=== PATIENT | male | born 1955 | race African-American/Black ===

== ENCOUNTER 2021-09-16 15:52 | Observation (INO) | payer MEDICARE, SELFPAY ==
[2021-09-16] VITALS (16 sets, daily range): BP systolic 135–163; BP diastolic 80–94; PULSE 71–80; RESP 13–21; TEMP 36.2–36.8; O2SAT 93–100; BMI 29.0
[2021-09-16 16:02] LABS: Glucose Point of Care 120 mg/dl (65-105)
--- NOTE | 2021-09-16 16:10 | ECG_ITS ---
Measurements Intervals [place] Rate: 71 P: 66 NC: 177 QRS: -72 QRSD: 174 T: -1 QT: 433 QTc: 474 Interpretive Statements SINUS RHYTHM RIGHT BUNDLE BRANCH BLOCK [120+ ms QRS DURATION, UPRIGHT V1, 40+ ms S IN I/aVL/V4/V5/V6] LEFT ANTERIOR FASCICULAR BLOCK [QRS AXIS <= -45, QR IN I, RS IN II] COMPARED TO ECG 07/28/2019 16:37:17 NO SIGNIFICANT CHANGES Electronically Signed On 09-16-2021 20:29:33 CDT by Heavenly Reardon M.D.
--- NOTE | 2021-09-16 16:58 | ED.RECABL ---
HPI - Recheck/Abnormal Lab/Rx General Chief Complaint: Recheck/Abnormal Lab/Rx Stated Complaint: hypoglycemia Time Seen by Provider: 09/16/21 16:04 Source: patient and EMS Mode of arrival: EMS Limitations: clinical condition History of Present Illness HPI narrative: This is a 66 year old male with history of right hemiparesis s/p CVA, Diabetes mellitus, and hypertension who presents from home for evaluation of low blood sugar. EMS reports patient was confused and he was found to have glucose of 29 . He was given oral glucose and D10 by EMS. Patient does not remember what happened. Patient states he was going to see his PCP today to get steroid injection in his back. He states he ate oatmeal for breakfast and chicken dinner for lunch. He is not aware of any changes his medications. He does not check his blood sugar routinely at home. He denies any complains other than his chronic back pain. He denies nausea, vomiting, abdominal pain, chest pain, cough or fever Related Data Home Medications Medication Instructions Recorded Confirmed aspirin 81 mg PO DAILY 09/16/21 09/16/21 atorvastatin 40 mg PO DAILY 09/16/21 09/16/21 carvedilol 25 mg PO BID 09/16/21 09/16/21 clopidogrel [Plavix] 75 mg PO DAILY 09/16/21 09/16/21 glimepiride 4 mg PO DAILY 09/16/21 09/16/21 hydralazine 100 mg PO BID 09/16/21 09/16/21 levetiracetam [Keppra] 1,000 mg PO BID 09/16/21 09/16/21 losartan 100 mg PO DAILY 09/16/21 09/16/21 magnesium oxide 250 mg PO DAILY 09/16/21 09/16/21 metformin 1,000 mg PO BID 09/16/21 09/16/21 tamsulosin 0.4 mg PO HS 09/16/21 09/16/21 Allergies Allergy/AdvReac Type Severity Reaction Status Date / Time No Known Allergies Allergy Verified 09/16/21 16:01 Review of Systems Review of Systems: All systems reviewed & are unremarkable except as noted in HPI and below PMFSH Past Medical History Medical History (Updated 09/16/21 @ 19:38 by Sarahy Burleson MD) CVA (cerebral vascular accident) Diabetes HTN (hypertension) Myocardial infarct Surgical History Surgical History History of heart surgery 3 stents placed after [place] Family History Family History (System 10/05/19 @ 08:30 by Jackie Rivera) Father Hypertension Malignant neoplasm of prostate, Onset Age: 82 Patient's father is Mother Hypertension Family history of elevated blood lipids Cerebrovascular accident, Onset Age: 45 Patient's mother is Social History Social History (System 10/05/19 @ 08:30 by Jackie Rivera) Smoking status: Unknown if ever smoked Alcohol intake: never Gender identity (if verbalized by the patient): Male Exam Const: General: no acute distress and alert Orientation/consciousness: patient oriented x3 HENMT: Head: normocephalic and atraumatic Face and sinus: face symmetric Eyes: Pupils: Equal, round and reactive pupils present EOM: EOMs intact bilaterally Resp: Effort & Inspection: normal respiratory effort and no retractions Cardio: Rate: regular rate Rhythm: regular rhythm Heart sounds: no murmurs GI: GI Palp: Yes Soft to palpation, No Tenderness to palpation present (GI), No Guarding due to palpation present (GI) and No Rigid due to palpation Auscultation: normal bowel sounds Neuro: General: patient oriented x3 and CN's II-XI intact bilaterally Other: right arm weakness Psych: Mental Status: mental status grossly normal Affect: normal affect Course Reevaluation(s) Reevaluation #1: Patient has not complaints. HE is eating. He will be obs for hypoglycemia. Dr. Harry accepts patient to IMU. Date: 09/16/21 Time: 19:37 Vital Signs Vital signs: Vital Signs Pulse Rate 78 09/16/21 15:55 Respiratory Rate 20 09/16/21 15:55 Blood Pressure 161/84 H 09/16/21 15:55 Pulse Oximetry 100 09/16/21 15:55 Pulse Rate 80 09/16/21 18:46 Respiratory Rate 21 H 09/16/21
[2021-09-16 17:06] LABS: Basophils Percent Auto 0.2 % (0.2-1.2); Eosinophils Absolute Auto 0.1 K/mm3 (0-0.3); Eosinophils Percent Auto 1.2 % (0-4.4); Hematocrit 28.9 % (42.0-52.0); Hemoglobin 9.5 g/dL (14.0-18.0); Immature Granulocyte Absolute 0.03 K/mm3 (0.00-0.031); Immature Granulocyte Percent A 0.3 % (0-0.5); Lymphocytes Percent Auto 14.8 % (18.3-44.2); Mean Corpuscular HGB Conc 32.9 g/dl (32-36); Mean Corpuscular Hemoglobin 27.1 pg (26-34); Mean Corpuscular Volume 82.6 fl (80-100); Mean Platelet Volume 8.9 fl (7.4-10.4); Monocytes Absolute Auto 0.5 K/mm3 (0.1-0.6); Monocytes Percent Auto 5.3 % (2.6-8.5); Neutrophils Absolute Auto 7.9 K/mm3 (1.3-6.7); Neutrophils Percent Auto 78.2 % (45.5-73.1); Platelet Count Result 239 k/mm3 (150-375); Red Cell Distribution Width 13.8 % (11.5-14.5); White Blood Count 10.2 K/mm3 (4.5-10.0)
[2021-09-16 17:10] LABS: Add Urine Microscopic? NO; Appearance Urine Clear (Clear); Bilirubin Urine Negative (Negative); Blood Urine Negative (Negative); Color Urine Yellow (Yellow); Glucose Urine UA Negative (Negative); Ketones Urine Negative (Negative); Leukocyte Esterase Ur Negative LEU/UL (Negative); Nitrate Urine Negative (Negative); Protein Urine Negative (Negative); Specific Grav Ur 1.014 (1.001-1.035); Urobilinogen Urine Negative mg/dL (<2.0)
[2021-09-16 17:18] LABS: Alanine Aminotransferase 18 U/L (4-50); Albumin Level 4.1 g/dL (3.5-5.1); Alkaline Phosphatase 54 U/L (38-126); Anion Gap 10 mmol/L (8-16); Aspartate Amino Transferase 25 U/L (17-59); Bilirubin,Total 0.4 mg/dL (0.2-1.3); Blood Urea Nitrogen 16 mg/dL (9-20); Carbon Dioxide 27 mmol/L (22-30); Chloride 102 mmol/L (98-107); Estimated CRCL calculation 55 ml/min; Estimated Glomerular Filt Rate > 60; Glucose 84 mg/dL (65-110); Potassium 3.9 mmol/L (3.4-5.0); Sodium 139 mmol/L (137-145)
[2021-09-16 18:08] LABS: Glucose Point of Care 54 mg/dl (65-105)
--- NOTE | 2021-09-16 18:13 | PC.NURSE ---
Dr Banerjee was informed that pt blood sugar was 54. stated to feed patient. Pt currently drinking OJ and eating crackers and granola bar.
--- NOTE | 2021-09-16 18:48 | PC.NURSE ---
pt blood sugar rechecked bs86 Patient encouraged to drink more OJ and snack.
--- NOTE | 2021-09-16 19:28 | PM.IMHP ---
H&P: HPI History of Present Illness Date/Time: 09/16/21 19:28 Chief Complaint: Altered mental status. Narrative: This is a 66-year-old male with past medical history significant for stroke, right-sided hemiparesis, hypertension, dyslipidemia, type 2 diabetes mellitus, benign prostatic hyperplasia. Patient was brought to the emergency room via EMS due to altered mental status. He was found to have a blood sugar of 29. Patient has been having back pain and was going to visit his primary care physician for steroid injection. Patient states that he has been eating all his meals. In denies any nausea, vomiting, diarrhea, abdominal pain, fevers, rigors, chills, cough ,sputum production, weight loss. Patient received while on the field D50 and in emergency room there were no other events. Patient is been admitted for further evaluation, management and treatment. Preliminary workup has been essentially nonrevealing. Review of Systems Review of Systems: Low blood sugar, low back pain. Constitutional: Constitutional: Denies chills, Denies fatigue, Denies fever(s), Denies lethargy, Denies malaise, Denies night sweats, Denies poor appetite, Denies weakness and Denies weight loss Eyes: Eyes: Denies change in vision ENT: Denies dysphagia, Denies vertigo, Denies dizziness, Denies nasal congestion, Denies nasal discharge, Denies nasal obstruction and Denies odynophagia Cardiovascular: Cardiovascular: Denies chest pain with activity, Denies leg ulcers, Denies leg edema, Denies lightheadedness, Denies radiating jaw, neck or arm pain, Denies palpitations and Denies dyspnea on exertion Respiratory: Respiratory: Denies change in phlegm color, Denies cough, Denies excessive phlegm production and Denies wheezing Gastrointestinal: Gastrointestinal: Denies GI cramping, Denies dyspepsia, Denies heartburn, Denies diarrhea, Denies nausea and Denies vomiting Genitourinary: Genitourinary: Denies dysuria and Denies flank pain Musculoskeletal: Musculoskeletal: Reports back pain Comments: Lower back pain. Integumentary/Breasts: Skin/Breast: Denies rash Neurologic: Denies vertigo, Denies syncope, Denies focal weakness, Denies Sensory deficit (Neuro) and Reports weakness (Right-sided hemiparesis.) Psychiatric: Psychiatric: Reports no additional psychiatric complaints and Reports as per HPI Endocrine: Endocrine: Denies cold intolerance, Denies heat intolerance, Denies polyphagia, Denies polydipsia, Denies polyuria, Denies palpitations and Reports other (Hypoglycemia) Hematologic/Lymphatic: Hematologic/Lymphatic: Reports no additional hematologic/lymphatic complaints and Reports as per HPI Allergic/Immunologic: Allergic/Immunologic: Reports no additional allergic/immunologic complaints and Reports as per HPI PMFSH Past Medical History Medical History (Updated 09/17/21 @ 01:21 by Abdon Harry MD) CVA (cerebral vascular accident) Diabetes HTN (hypertension) Myocardial infarct Surgical History Surgical History History of heart surgery 3 stents placed after [place] Family History Family History Father Hypertension Malignant neoplasm of prostate, Onset Age: 82 Patient's father is Mother Hypertension Family history of elevated blood lipids Cerebrovascular accident, Onset Age: 45 Patient's mother is Social History Social History (System 10/05/19 @ 08:30 by Jackie Rivera) Smoking status: Never smoker Second hand tobacco smoke exposure: No Alcohol intake: never Substance use: never Substance use type: does not use Gender identity (if verbalized by the patient): Male Spiritual care concerns: No Meds Home Medications and Allergies Home Medications Medication Instructions Recorded Confirmed Type aspirin 81 mg PO DAILY 09/16/21 09/16/21 History atorvastatin 40 mg P
--- NOTE | 2021-09-16 19:30 | PC.NURSE ---
Handoff received from Phyllis HATHAWAY. Patient lying comfortably in ED stretcher. Calm and cooperative. AAOx4. Equal and unlabored resp. Skin is warm and dry. SR on property assessment monitor. 18g IV L AC in place secured and patent. No complaints at this time. Vitals WNL. Updated on Tx plan. Pending bed assignment.
[2021-09-16 19:55] LABS: Glucose Point of Care 125 mg/dl (65-105)
[2021-09-16 19:55] LABS: Glucose Point of Care 84 mg/dl (65-105)
--- NOTE | 2021-09-16 21:42 | ADMGEN ---
This patient, Arnulfo Rod, was admitted to IMU Room 232-01 at 2105 on 09/16/21. Patient/family oriented to hospital policies and general routines including ID bracelet, bed and alarms, visiting hours, pain management, procedures, bathroom and other care routines, personal items, smoking policy, room service/diet, and visiting hours. Information on how to activate the Rapid Response Team has been discussed. Patient/Family are encouraged to report perceived risks to care and to ask questions if they do not understand what they are told or what they should do.
[2021-09-16 21:43] LABS: Glucose Point of Care 122 mg/dl (65-105)
[2021-09-17] VITALS (9 sets, daily range): BP systolic 124–150; BP diastolic 79–87; PULSE 60–75; RESP 15–16; TEMP 36.6–36.9; O2SAT 97–100
[2021-09-17 00:06] LABS: Glucose Point of Care 83 mg/dl (65-105)
[2021-09-17 01:56] LABS: Glucose Point of Care 110 mg/dl (65-105)
[2021-09-17 04:05] LABS: Glucose Point of Care 69 mg/dl (65-105)
[2021-09-17] MEDS: GLUCOSE ORAL GEL 15 GM OF GLUCSE IN 37.5 GM TUBE PO (04:08)
[2021-09-17] MEDS: DEXTROSE 50% 25 GM/50 ML SYRINGE IV PUSH ×2 (04:19→04:20)
[2021-09-17] MEDS: HYDROcodone/acetaminophen (*CRX) 5-325 MG TABLET 1 TAB BY MOUTH ×2 (04:45→10:31)
[2021-09-17 04:46] LABS: Glucose Point of Care 227 mg/dl (65-105)
[2021-09-17 06:05] LABS: Glucose Point of Care 144 mg/dl (65-105)
[2021-09-17] MEDS: DEXTROSE 10% 1,000 ML 65 ML IV CONT (06:33)
[2021-09-17] MEDS: ASPIRIN 81 MG ENTERIC TABLET PO (08:53)
[2021-09-17] MEDS: CLOPIDOGREL BISULFATE 75 MG TABLET PO (08:53)
[2021-09-17] MEDS: hydrALAZINE HCL 50 MG TABLET 100 MG PO (08:53)
[2021-09-17] MEDS: levETIRAcetam 500 MG TABLET 1000 MG PO (08:53)
[2021-09-17] MEDS: ATORVASTATIN 40 MG TABLET PO (08:53)
[2021-09-17] MEDS: MAGNESIUM OXIDE 200 MG TABLET PO (08:53)
[2021-09-17] MEDS: LOSARTAN POTASSIUM 100 MG TABLET PO (08:53)
[2021-09-17] MEDS: carvediloL 25 MG TABLET PO (08:54)
[2021-09-17 09:49] LABS: Glucose Point of Care 110 mg/dl (65-105)
[2021-09-17 10:15] LABS: Glucose Point of Care 191 mg/dl (65-105)
[2021-09-17 10:21] LABS: Hemoglobin A1C 5.1 % (<5.7)
[2021-09-17 12:35] LABS: Glucose Point of Care 138 mg/dl (65-105)
--- NOTE | 2021-09-17 13:42 | PM.IMPN ---
Subjective Date/time seen: 09/17/21 13:42 Patient seen and examined. He is doing well we will stop the D10 drip. Hemoglobin A1c 5.1, stopping his metformin and glipizide. Patient will likely go home today if blood sugar stays stable. Review of Systems Review of Systems: All systems reviewed & are unremarkable except as noted in HPI and below Objective Data Vital Signs Vital Signs: Vital Signs - 24 hr 09/16/21 15:55 09/16/21 16:13 09/16/21 16:15 Temperature Pulse Rate 78 78 73 Respiratory Rate 20 20 17 Blood Pressure 161/84 H 161/84 H Pulse Oximetry 100 100 99 09/16/21 17:11 09/16/21 17:17 09/16/21 17:31 Temperature Pulse Rate 74 72 75 Respiratory Rate 17 21 H 15 Blood Pressure 163/94 H 142/86 H 135/91 H Pulse Oximetry 96 93 09/16/21 17:47 09/16/21 18:32 09/16/21 18:46 Temperature Pulse Rate 71 80 80 Respiratory Rate 13 19 21 H Blood Pressure 152/85 H 152/85 H 145/93 H Pulse Oximetry 95 09/16/21 19:16 09/16/21 19:32 09/16/21 20:51 Temperature 36.8 C Pulse Rate 78 80 75 Respiratory Rate 19 21 H 18 Blood Pressure 151/85 H 142/91 H 145/86 H Pulse Oximetry 99 100 98 09/16/21 21:20 09/16/21 21:40 09/16/21 22:00 Temperature 36.2 C L 36.2 C L Pulse Rate 76 76 78 Respiratory Rate 16 16 Blood Pressure 151/80 H 151/80 H Pulse Oximetry 100 100 09/16/21 23:58 09/17/21 00:00 09/17/21 02:00 Temperature 36.4 C Pulse Rate 74 75 72 Respiratory Rate 16 Blood Pressure 143/84 H Pulse Oximetry 100 09/17/21 03:54 09/17/21 04:00 09/17/21 06:00 Temperature 36.6 C Pulse Rate 64 67 73 Respiratory Rate 15 Blood Pressure 150/87 H Pulse Oximetry 97 09/17/21 08:00 09/17/21 12:00 Temperature 36.8 C 36.9 C Pulse Rate 65 68 Respiratory Rate 16 16 Blood Pressure 137/80 124/79 Pulse Oximetry 99 100 Intake/Output Intake/Output: Intake & Output 09/14/21 09/15/21 09/16/21 09/17/21 23:59 23:59 23:59 23:59 Intake Total 770 Output Total 700 Balance 70 Meds/Results Medications: Active Medications Generic Name Dose Route Start Last Admin Trade Name Freq PRN Reason Stop Dose Admin Hydrocodone Bitart/Acetaminophen 1 tab 09/17/21 10:26 09/17/21 10:31 Hydrocodone/Acetaminophen (*Crx) 5-325 Mg Tablet BY MOUTH 1 tab Q6H PRN Administration Back Pain Aspirin 81 mg 09/17/21 09:00 09/17/21 08:53 Aspirin 81 Mg Enteric Tablet PO 81 mg QAM TALI Administration Atorvastatin Calcium 40 mg 09/17/21 09:00 09/17/21 08:53 Atorvastatin 40 Mg Tablet PO 40 mg DAILY TALI Administration Carvedilol 25 mg 09/17/21 09:00 09/17/21 08:54 Carvedilol 25 Mg Tablet PO 25 mg Q12HR TALI Administration Clopidogrel Bisulfate 75 mg 09/17/21 09:00 09/17/21 08:53 Clopidogrel Bisulfate 75 Mg Tablet PO 75 mg DAILY TALI Administration Dextrose 12.5 gm 09/16/21 19:31 09/17/21 04:20 Dextrose 50% 25 Gm/50 Ml Syringe IV PUSH 12.5 gm PRN PRN Administration Hypoglycemia Protocol Glucagon 1 mg 09/16/21 19:31 Glucagon For Inj 1 Mg Vial IM PRN PRN Hypoglycemia Protocol Glucose 15 gm 09/16/21 19:31 09/17/21 04:08 Glucose Oral Gel 15 Gm Of Glucse In 37.5 Gm Tube PO 15 gm PRN PRN Administration Hypoglycemia Protocol Hydralazine HCl 100 mg 09/17/21 09:00 09/17/21 08:53 Hydralazine Hcl 50 Mg Tablet PO 100 mg BID TALI Administration Dextrose 1,000 mls @ 100 mls/hr 09/16/21 19:31 Dextrose 5% 1,000 Ml IVPB PRN PRN Hypoglycemia Protocol Levetiracetam 1,000 mg 09/17/21 09:00 09/17/21 08:53 Levetiracetam 500 Mg Tablet PO 1,000 mg BID TALI Administration Losartan Potassium 100 mg 09/17/21 09:00 09/17/21 08:53 Losartan Potassium 100 Mg Tablet PO 100 mg DAILY TALI Administration Magnesium Oxide 200 mg 09/17/21 09:00 09/17/21 08:53 Magnesium Oxide 200 Mg Tablet PO 10/17/21 08:59 200 mg DAILY TALI Administration Ondansetron
--- NOTE | 2021-09-17 13:45 | PM.DS ---
DS: Admitting Diagnosis Discharge Date 09/17/2021 Admitting Diagnosis Altered mental status, hypoglycemia DS: Discharge Diagnosis Discharge Diagnosis (1) Altered mental status: Code(s): R41.82 - Altered mental status, unspecified Status: Acute Assessment and Plan: Secondary to hyperglycemia (2) Hypoglycemia: Code(s): E16.2 - Hypoglycemia, unspecified Status: Acute Assessment and Plan: A1c 5.1 while on glimepiride and metformin. With weight loss he may no longer need diabetes medications. Blood sugars improved by discharge. DS: Summary Hospital Course Reason for hospitalization: Hypoglycemia and altered mental status Hospital Course: Patient is a 66-year-old male past medical history of stroke with right hemiparesis, hypertension, dyslipidemia, type 2 diabetes, BPH. He was brought in by EMS for altered mental status and was found to have hypoglycemia blood sugar 29. He was temporarily on D10 drip. Patient diabetes regimen includes metformin and glimepiride. Consulted clinical staff educator. Patient does not check his blood sugars at home. Hemoglobin A1c 5.1. Patient states he has been trying to lose weight and has lost 30 lb over last year. With his weight loss, his diabetes regimen appears to be too much. Holding off on glucometer, as patient is not on any diabetes medications. At this time I will stop his home medications and he will follow-up with PCP, patient requesting new physician, will give referral. At time of discharge patient's vitals are stable, labs stable, patient is for discharge home. Patient understands and agrees with plan. Status at Discharge Cognitive/behavioral status at discharge: At baseline Functional status at discharge: independent ambulation Overall status at discharge: patient is back to baseline Time Spent with Patient Time attestation: Total time spent providing and/or coordinating discharge services:35 Time spent: Greater than 30 minutes DS: Data Data Completed and Pending Labs on day of discharge: Labs from last 24 hours 09/17/21 09/17/21 09/17/21 12:19 10:10 08:22 WBC RBC Hgb Hct MCV MCH MCHC RDW Plt Count MPV Immature Gran % (Auto) Neut % (Auto) Lymph % (Auto) Granite % (Auto) Eos % (Auto) Baso % (Auto) Lymph # (Auto) Granite # (Auto) Eos # (Auto) Baso # (Auto) Abs Immat Gran (auto) Absolute Neuts (auto) Absolute Nucleated RBC Nucleated RBC % Sodium Potassium Chloride Carbon Dioxide Anion Gap BUN Creatinine Estim Creat Clear Calc Estimated GFR Glucose POC Capillary Glucose 138 H 191 H 110 H Hemoglobin A1c Calcium Total Bilirubin AST ALT Alkaline Phosphatase Total Protein Albumin Urine Color Urine Appearance Urine pH Ur Specific [place] Urine Protein Urine Glucose (UA) Urine Ketones Ur Blood (Man) Urine Nitrate Urine Bilirubin Urine Urobilinogen Leukocyte Esterase Rfl 09/17/21 09/17/21 09/17/21 06:03 04:42 03:58 WBC RBC Hgb Hct MCV MCH MCHC RDW Plt Count MPV Immature Gran % (Auto) Neut % (Auto) Lymph % (Auto) Granite % (Auto) Eos % (Auto) Baso % (Auto) Lymph # (Auto) Granite # (Auto) Eos # (Auto) Baso # (Auto) Abs Immat Gran (auto) Absolute Neuts (auto) Absolute Nucleated RBC Nucleated RBC % Sodium Potassium Chloride Carbon Dioxide Anion Gap BUN Creatinine Estim Creat Clear Calc Estimated GFR Glucose POC Capillary Glucose 144 H 227 H 69 Hemoglobin A1c Calcium Total Bilirubin AST ALT Alkaline Phosphatase Total Protein Albumin Urine Color Urine Appearance Urine pH Ur Specific [place] Urine Protein Urine Glucose (UA) Urine Ketones Ur Blood (Man) Urine Nitrate Urine Bilirubin Uri
--- NOTE | 2021-09-18 09:59 | PCCDE ---
Consult received 09/17 however pt was discharged 09/17 before consult was completed. Pt was admitted with hypoglycemia. Pt was taking 4mg Glimepiride and 1gm Metformin BID. A1c was 5.1%. He has intentionally lost 30# this year. Meds were discontinued and pt was discharged 09/17. Called pt today; he is not testing BG and sts he does not have a meter. He wants the gluco ; pt meant continuous glucose monitor. Advised that medicare only covers CGM if taking insulin TID. He sts he will be calling PCP today to set up appt; advised he could ask them for rx for testing supplies. Offered to stop by office today for meter and teaching. pt sts manager of case management is there and he will call back.
== END 2021-09-17 16:05 | disposition home or self-care (01) ==
LOC: ANHED 19:38 → ANHIMU 20:36
PROVIDERS: Admitting Provider Internal Medicine; Emergency Provider General Practice; Visit Provider Student in an Organized Health Care Education/Training Program
DX: E11.649 Type 2 diabetes mellitus with hypoglycemia without coma (principal); R41.82 Altered mental status, unspecified; I69.351 Hemiplegia and hemiparesis following cerebral infarction affecting right dominant side; I10 Essential (primary) hypertension; I25.2 Old myocardial infarction; G89.29 Other chronic pain; M54.9 Dorsalgia, unspecified; E78.5 Hyperlipidemia, unspecified; N40.0 Benign prostatic hyperplasia without lower urinary tract symptoms; Z95.5 Presence of coronary angioplasty implant and graft; Z79.84 Long term (current) use of oral hypoglycemic drugs
CPT/HCPCS: 36415; 80053; 81003; 82948; 83036; 85025; 93005; 96365; 96366; 96376; 99285; A9270; G0378

== ENCOUNTER 2022-11-04 01:13 | Emergency (ER) | payer MEDICARE, SELFPAY ==
--- NOTE | ~2022-11-04 | XR_ITS ---
Portable chest x-ray Comparison: 01/18/2009 Clinical History: Chest pain Findings: Lungs are clear, without focal consolidation or pleural effusion. Cardiomediastinal silho uette is stable. Bones and soft tissues are unremarkable. Impression: Normal chest. Reviewed, dictated and finalized at location . Impression: Normal chest.
[2022-11-04 01:14] VITALS: BP 161/90; PULSE 75; RESP 18; TEMP 36.8; O2SAT 100
--- NOTE | 2022-11-04 01:19 | ECG_ITS ---
Measurements Intervals [place] Rate: 80 P: 69 MN: 189 QRS: -72 QRSD: 164 T: 30 QT: 418 QTc: 483 Interpretive Statements SINUS RHYTHM RIGHT BUNDLE BRANCH BLOCK LEFT ANTERIOR FASCICULAR BLOCK CONSIDER LATERAL INFARCT, AGE INDETERMINATE BASELINE ARTIFACT- I, II, AVR ABNORMAL ECG COMPARED TO ECG 09/16/2021 17:08:44 MYOCARDIAL INFARCT FINDING NOW PRESENT Electronically Signed On 11-04-2022 6:32:58 CDT by Carmelo Hawkins D.O.
[2022-11-04 01:54] LABS: Basophils Percent Auto 0.3 % (0.2-1.2); Eosinophils Absolute Auto 0.1 K/mm3 (0-0.3); Eosinophils Percent Auto 1.2 % (0-4.4); Hematocrit 33.6 % (42.0-52.0); Hemoglobin 11.4 g/dL (14.0-18.0); Immature Granulocyte Absolute 0.01 K/mm3 (0.00-0.031); Immature Granulocyte Percent A 0.1 % (0-0.5); Lymphocytes Absolute Auto 2.04 K/mm3 (0.9-3.2); Lymphocytes Percent Auto 26.1 % (18.3-44.2); Mean Corpuscular HGB Conc 33.9 g/dl (32-36); Mean Corpuscular Volume 82.6 fl (80-100); Mean Platelet Volume 9.1 fl (7.4-10.4); Monocytes Absolute Auto 0.4 K/mm3 (0.1-0.6); Monocytes Percent Auto 4.5 % (2.6-8.5); Neutrophils Absolute Auto 5.3 K/mm3 (1.3-6.7); Neutrophils Percent Auto 67.8 % (45.5-73.1); Platelet Count Result 224 k/mm3 (150-375); Red Blood Count 4.07 M/mm3 (4.6-6.20); Red Cell Distribution Width 12.2 % (11.5-14.5); White Blood Count 7.8 K/mm3 (4.5-10.0)
[2022-11-04 02:02] LABS: Alanine Aminotransferase 55 U/L (6-50); Albumin Level 4.1 g/dL (3.5-5.1); Alkaline Phosphatase 76 U/L (38-126); Anion Gap 6 mmol/L (8-16); Aspartate Amino Transferase 39 U/L (17-59); Bilirubin,Total 0.8 mg/dL (0.2-1.3); Blood Urea Nitrogen 12 mg/dL (9-20); Calcium 8.8 mg/dL (8.4-10.2); Carbon Dioxide 28 mmol/L (22-30); Chloride 104 mmol/L (98-107); Estimated CRCL calculation 59 ml/min; Estimated Glomerular Filt Rate > 60; Glucose 112 mg/dL (65-110); Lipase 127 U/L (23-300); Potassium 3.6 mmol/L (3.4-5.0); Sodium 138 mmol/L (137-145)
[2022-11-04 02:06] LABS: INR 1.2; Partial Thromboplastin Time 30.4 SECONDS (22.3-36.8); Prothrombin Time 15.9 Seconds (11.1-14.7)
[2022-11-04 02:13] LABS: Troponin I 0.021 ng/mL (0.000-0.034)
[2022-11-04 02:47] VITALS: BP 159/92; PULSE 70; RESP 17; O2SAT 100
--- NOTE | 2022-11-04 03:08 | ED.GENADULT ---
HPI - General Adult General Chief complaint: Chest Pain Stated complaint: chest pain Time Seen by Provider: 11/04/22 01:50 History of Present Illness HPI narrative: This is a 67-year-old male with history of strokes and MIs presenting ED with chest pain. Patient got to an argument with his . He then got mad said that he felt some sort of pain in center of his chest. He is unable to describe it well. It is not radiating, medium in intensity and resolved once he came to the hospital. He says this is not feel like when he has had heart attack in the past. There are no exacerbating or alleviating factors. It is associated with emotional exertion. There is no vomiting diaphoresis fever chills or cough. No lower extremity swelling. Patient states his visitor services assistant is Dr. Hawkins. Related Data Home Medications Medication Instructions Recorded Confirmed aspirin 81 mg tablet 81 mg PO DAILY 09/16/21 09/16/21 atorvastatin 40 mg tablet 40 mg PO DAILY 09/16/21 11/04/22 carvedilol 25 mg tablet 25 mg PO BID 09/16/21 11/04/22 clopidogrel 75 mg tablet (Plavix) 75 mg PO DAILY 09/16/21 11/04/22 hydralazine 100 mg tablet 100 mg PO BID 09/16/21 11/04/22 levetiracetam 1,000 mg tablet 1,000 mg PO BID 09/16/21 11/04/22 (Keppra) losartan 100 mg tablet 100 mg PO DAILY 09/16/21 09/16/21 magnesium oxide 250 mg PO DAILY 09/16/21 09/16/21 tamsulosin 0.4 mg capsule 0.4 mg PO HS 09/16/21 11/04/22 hydralazine 100 mg tablet 100 mg PO BID 11/04/22 11/04/22 Allergies Allergy/AdvReac Type Severity Reaction Status Date / Time No Known Allergies Allergy Verified 09/16/21 16:01 [facility] Past Medical History Medical History CVA (cerebral vascular accident) Diabetes HTN (hypertension) Myocardial infarct Surgical History Surgical History History of heart surgery 3 stents placed after [place] Family History Family History Father Hypertension Malignant neoplasm of prostate, Onset Age: 82 Patient's father is Mother Hypertension Family history of elevated blood lipids Cerebrovascular accident, Onset Age: 45 Patient's mother is Social History Social History Smoking status: Never smoker Second hand tobacco smoke exposure: No Alcohol intake: never Substance use: never Substance use type: does not use Gender identity (if verbalized by the patient): Male Spiritual care concerns: No Exam Narrative: APPEARANCE: No apparent distress. Head: atraumatic. EYES: EOMI, NOSE: Atraumatic NECK: Trachea midline RESPIRATORY: No increased rate of breathing, clear to auscultation CARDIOVASCULAR: RRR, no peripheral edema ABDOMINAL: Non-distended soft nontender no guarding or rebound MUSCULOSKELETAl: No obvious deformities NEURO: Alert. Right hemiplegia SKIN:: Warm, dry. Normal color PSYCHIATRIC: Normal affect Course Vital Signs Vital signs: Vital Signs Temperature 98.3 F 11/04/22 01:14 Pulse Rate 75 11/04/22 01:14 Respiratory Rate 18 11/04/22 01:14 Blood Pressure 161/90 H 11/04/22 01:14 Pulse Oximetry 100 11/04/22 01:14 Oxygen Delivery Room Air 11/04/22 01:14 Temperature 98.3 F 11/04/22 01:14 Pulse Rate 71 11/04/22 05:18 Respiratory Rate 15 11/04/22 05:18 Blood Pressure 140/70 11/04/22 05:18 Pulse Oximetry 100 11/04/22 05:18 Oxygen Delivery Room Air 11/04/22 01:14 Medical Decision Making [facility] Narrative Medical decision making narrative: -Presentation: 67-year-old male history of [place] presenting with chest pain after an argument with his . -DDX includes but is not limited to: ACS, emotional response, chest wall pain -Co-morbidities complicating care: hypertension diabetes heart disease CVA -Social determina
--- NOTE | 2022-11-04 03:26 | ECG_ITS ---
Measurements Intervals [place] Rate: 75 P: -1 OK: 192 QRS: 145 QRSD: 170 T: 29 QT: 442 QTc: 494 Interpretive Statements SINUS RHYTHM RIGHT AXIS DEVIATION RIGHT BUNDLE BRANCH BLOCK LATERAL INFARCT, AGE INDETERMINATE CONSIDER HIGH LATERAL INFARCT, AGE INDETERMINATE BASELINE ARTIFACT- I, II, AVR ABNORMAL ECG COMPARED TO ECG 11/04/2022 01:24:58 NO SIGNIFICANT CHANGES Electronically Signed On 11-05-2022 11:10:48 CDT by Carmelo Hawkins D.O.
[2022-11-04 04:05] VITALS: BP 169/93; PULSE 72; RESP 13; O2SAT 98
[2022-11-04 04:47] LABS: Troponin I 0.021 ng/mL (0.000-0.034)
[2022-11-04 05:18] VITALS: BP 140/70; PULSE 71; RESP 15; O2SAT 100
== END 2022-11-04 06:00 | disposition home or self-care (01) ==
PROVIDERS: Emergency Provider Emergency Medicine
DX: R07.9 Chest pain, unspecified (principal); I25.2 Old myocardial infarction; E11.9 Type 2 diabetes mellitus without complications; I10 Essential (primary) hypertension; Z95.5 Presence of coronary angioplasty implant and graft; Z86.73 Personal history of transient ischemic attack (TIA), and cerebral infarction without residual deficits; Z79.82 Long term (current) use of aspirin; I45.2 Bifascicular block; R94.31 Abnormal electrocardiogram [ECG] [EKG]; Z79.02 Long term (current) use of antithrombotics/antiplatelets
CPT/HCPCS: 36415; 71045; 80053; 83690; 84484; 85025; 85610; 85730; 93005; 99284

== ENCOUNTER 2024-12-03 09:18 | Outpatient (CLI) | payer MEDICARE, MEDICAID, SELFPAY ==
--- NOTE | ~2024-12-03 | XR_ITS ---
XR hip LT 2V w AP pelvis 12/03/2024 10:17 Indication: Hip pain Procedure: AP pelvis and 2 views right hip Comparison: No prior studies for comparison. 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 No fracture, subluxation or disloc ation. Pelvic rings intact. Impression: 1: Mild symmetric osteoarthritis of the hips. Reviewed, dictated and finalized at location A. Impression: 1: Mild symmetric osteoarthritis of the hips.
--- NOTE | ~2024-12-03 | CT_ITS ---
CT of the Abdomen and Pelvis: Indication: Abdominal pain Technique: 2.5 mm axial scans were obtained through the abdomen and pelvis following intravenous adm inistration of 100 cc of Omnipaque 350. Dose reduction technique was used on this scan by utilizing a utomated exposure control and iterative reconstruction technique. The dose-length product (DLP) was 1 060.54 mGy-cm. Findings: Scans through the lung bases are unremarkable. Several scattered hepatic cysts are present. The spleen, pancreas, gallbladder, left adrenal gland an d kidneys are within normal limits. 1.1 cm right adrenal nodule is indeterminate. There are atheroscl erotic calcifications of the aorta. No lymphadenopathy. No bowel obstruction or bowel wall thickening. There is no evidence to suggest acute appendicitis. Images through the pelvis were performed. Urinary bladder unremarkable. Prostate gland is markedly en larged and indents to the bladder base. No ascites. Impression: No acute abnormality. Indeterminate 1.1 cm nodule. Follow-up MR should be considered to assess for adenoma. Markedly enlarged prostate gland. Reviewed, dictated and finalized at [facility]. Impression: No acute abnormality. Indeterminate 1.1 cm nodule. Follow-up MR should be considered to assess for ad enoma. Markedly enlarged prostate gland.
--- OUTSIDE RECORDS SUMMARY | 2024-12-03 09:42 | XMS_ITS | Encounter Summary ---
Author Organization [facility] Address [address] [place] [address] Care Team Providers Care End Maker Name Role Phone Nghia Ag MD Primary Care Provider [phone] Encounter Details Date Type Department Care Team (Latest Contact Info) Description 06/01/2021 2:52 PM [facility] Encounter [place] [id number] [address] Batool Zhang MD [address] [place] [id number] [facility] Social History Tobacco Use Types Packs/Day Years Used Date Smoking Tobacco: Never Assessed PHQ-2 Answer Date Recorded PHQ2 TOTAL SCORE 0 05/29/2021 Sex and Gender Information Value Date Recorded Sex Assigned at Not on file Legal Sex Male 12:46 PM [facility] Gender Identity Not on file Sexual Orientation [...] documented in this encounter Plan of Treatment Not on file documented as of this encounter Visit Diagnoses Not on filedocumented in this encounter Care Teams End Maker Relationship Specialty Start Date End Date Nghia Ag MD [address] [place] [address] PCP - General Internal Medicine 05/27/21 documented as of this encounter
--- OUTSIDE RECORDS SUMMARY | 2024-12-03 09:42 | XMS_ITS | Clinical Summary ---
Author Organization [facility] Address [address] [place] [address] Care Team Providers Care Baggage Security Checker Name Role Phone Nghia Ag MD Primary Care Provider [phone] Source Comments [facility],non-owned Affiliates and Associated Physician Practices is amultiple site organization consisting of ambulatory clinics and hospital sitesin [place], [place], [place] and [place]. This disclosure is being madepursuant to the Care Everywhere program and may not contain all information available regarding this patient. Last updated 18.[facility] Allergies No known active allergies Medications * Be aware that medications may not be up to date on this document. Alwaysverify current medications with the patient. glimepiride (AMARYL) 4 MG tablet Take 4 mg by mouth daily with breakfast Active losartan (COZAAR) 100 MG tablet Take 100 mg by mouth once daily Active metFORMIN (GLUCOPHAGE) 1000 MG tablet Take 1,000 mg by mouth 2 times daily with morning and evening meal Active tamsulosin (FLOMAX) 0.4 MG capsule Take 0.4 mg by mouth once daily At the same time every day after a meal. Active atorvastatin (LIPITOR) 40 MG tablet Take 40 mg by mouth at bedtime Active acetaminophen (TYLENOL) 325 MG tablet Take 2 (two) tablets by mouth every 4 hours as needed Maximum allowable Acetaminophen amount = 4 Grams (4000 mg) / 24 hours. 1 Active aspirin (ASPIRIN) 325 MG tablet Take 1 (one) tablet by mouth once daily 1 Active clopidogrel (PLAVIX) 75 MG tablet Take 1 (one) tablet by mouth once daily 1 Active hydrALAZINE (APRESOLINE) 100 MG tablet Take 1 (one) tablet by mouth 3 times daily 1 Active Active Problems Problem Noted Date Diagnosed Date Cerebrovascular accident (CVA) 05/27/2021 Family History Medical History Relation Name Comments Cancer - Prostate Father CVA Mother Relation Name Status Comments Father Mother Social History Tobacco Use Types Packs/Day Years Used Date Smoking Tobacco: Former Smokeless Tobacco: Never Tobacco Cessation:Counseling Given: Yes Alcohol Use Standard Drinks/Week Comments Not Currently 0 (1 standard drink = 0.6 oz pur e alcohol) PHQ-2 Answer Date Recorded PHQ2 TOTAL SCORE 0 05/29/2021 Sex and Gender Information Value Date Recorded Sex Assigned at Not on file Legal Sex Male 12: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 Gender Identity Not on file Sexual Orientation Not on file Last Filed Vital Signs Vital Sign Reading Time Taken Comments Blood Pressure 129/72 06/01/2021 1:02 PM ELECTRIC POWER MACHINE OPERATOR Pulse 77 06/01/2021 1:02 PM ELECTRIC POWER MACHINE OPERATOR Temperature 36.5 C (97.7 F) 06/01/2021 11:08 AM ELECTRIC POWER MACHINE OPERATOR Respiratory Rate 19 06/01/2021 1:02 PM ELECTRIC POWER MACHINE OPERATOR Oxygen Saturation 96% 06/01/2021 11:08 AM ELECTRIC POWER MACHINE OPERATOR Inhaled Oxygen Concentration - - Weight 99.8 kg (220 lb) 05/29/2021 5:01 AM ELECTRIC POWER MACHINE OPERATOR Height 175.3 cm (5' 9) 05/28/2021 10:37 AM ELECTRIC POWER MACHINE OPERATOR Body Mass Index 32.49 05/28/2021 10:37 AM ELECTRIC POWER MACHINE OPERATOR Plan of Treatment Health Maintenance Due Date Last Done Comments COLOGUARD (AGES 45-75) - COLON CA SCREENING 1956 COLON MONITORING 1956 COLONOSCOPY - COLON CA SCREENING 1956 CT COLONOGRAPHY - COLON CA SCREENING 1956 Colorectal Cancer Screening 1956 FIT - COLON CA SCREENING 1956 FLEX SIG - COLON CA SCREENING 1956 HEPATITIS C SCREENING 04/05/1974 DTAP/TDAP/TD VACCINES (1 - Tdap) 1975 PNEUMOCOCCAL VACCINE 50+ (1 of 1 - PCV) 2006 ZOSTER VACCINE (1 of 2) 2006 AAA SCREENING 2021 COVID-19 VACCINE (3 - season) 2024 12/04/2020, 11/13/2020 SCREENING FOR DIABETES 06/18/2024 , 06/13/2021, 06/11/2021, Additional history exists DEPRESSION SCREENING 07/04/2024 INFLUENZA VACCINE (Season Ended) 2025 06/10/2020 Respiratory Syncytial Virus (RSV) Vaccine Pt: or over 60 yrs (1 - 1-dose 75+ series) 2031 HEPATITIS B VACCINE Aged Out No longe r eligible based on patient's age to complete this topic HIB VACCINE Aged Out No longer eligi ble based on patient's age to complete this topic HPV VACCINE Aged Out No longer eligi ble based on patient's age to complete this topic MENINGOCOCCAL (Group B) VACCINE SHARED DECISION-MAKING Aged Out No longer eligible based on patient's age to complete this topic MENINGOCOCCAL GROUPS A/C/Y/W VACCINE Aged Out No longer eligible based on patient's age to complete this topic Procedures Procedure Name Priority Date/Time Associated Diagnosis Comments COMPREHENSIVE METABOLIC PANEL Routine 06/18/2021 6:00 AM ELECTRIC POWER MACHINE OPERATOR from Last 3 Months or Most Recently Relevant to Health Maintenance Results * COMPREHENSIVE METABOLIC PANEL (06/18/2021 6:00 AM ELECTRIC POWER MACHINE OPERATOR) [facility] Glucose 98 70 - 105 mg/dL 06/18/2021 6:58 AM ELECTRIC POWER MACHINE OPERATOR [facility] Sodium 139 136 - 145 mmol/L 06/18/2021 6:58 AM ELECTRIC POWER MACHINE OPERATOR [facility] Potassium 4.4 3.5 - 5.1 mmol/L 06/18/2021 6:58 AM ELECTRIC POWER MACHINE OPERATOR [facility] Chloride 105 98 - 107 mmol/L 06/18/2021 6:58 AM ELECTRIC POWER MACHINE OPERATOR [facility] CO2 24 23 - 31 mmol/L 06/18/2021 6:58 AM ELECTRIC POWER MACHINE OPERATOR [facility] Calcium 9.3 8.4 - 10.4 mg/dL 06/18/2021 6:58 AM ELECTRIC POWER MACHINE OPERATOR [facility] Anion Gap 10 8 - 18 mmol/L 06/18/2021 6:58 AM [facility] BUN 18 8.4 - 25.7 mg/dL 06/18/2021 6:58 AM [facility] Creatinine 1.18 0.72 - 1.25 mg/dL 06/18/2021 6:58 AM [facility] Alkaline Phosphatase 63 40 - 150 U/L 06/18/2021 6:58 AM [facility] ALT 25 0 - 61 U/L 06/18/2021 6:58 AM [facility] AST 17 5 - 34 U/L 06/18/2021 6:58 AM [facility] Protein Total 7.1 6.4 - 8.3 gm/dL 06/18/2021 6:58 AM [facility] Albumin 3.9 3.2 - 4.6 gm/dL 06/18/2021 6:58 AM [facility] Bilirubin Total 0.7 0.2 - 1.2 mg/dL 06/18/2021 6:58 AM [facility] eGFR by MDRD >60 >60 mL/min/1.7 3m2 06/18/2021 6:58 AM [facility] eGFR by MDRD >60 >60 mL/min/1.7 3m2 06/18/2021 6:58 AM [facility] Blood BLOOD SPECIMEN / Unknown Lab Venipuncture / Unknown 06/18/2021 6:00 AM ELECTRIC POWER MACHINE OPERATOR 06/18/2021 6:21 AM [facility] Radha Diop DO LAB - CHEMISTRY ORDERABLES Fin al Result Performing Organization Address City/State/[facility] Co de Phone Number [facility] [address] [place] [address] from Last 3 Months or Most Recently Relevant to Health Maintenance Insurance MEDICARE [facility] MANAGED MEDICARE ADV [address] [place] [address] [id number] [place] [address] Advance Directives * Full Code (Latest Code Status on File) Date Activated Date Inactivated Comments 06/01/2021 5:21 PM 06/18/2021 3:21 PM * Full Code Date Activated Date Inactivated Comments 05/27/2021 3:09 PM 06/01/2021 5:01 PM Care Teams Baggage Security Checker Relationship Specialty Start Date End Date Nghia Ag MD [address] [place] [address] PCP - General Internal Medicine 05/27/21
--- OUTSIDE RECORDS SUMMARY | 2024-12-03 09:42 | XMS_ITS | Data Portability ---
[facility] Address [address] [place] [address] Assessment Encounter Date Assessment Date Assessment LastModified by Organization Details LastModified Time 10/17/2023 10/17/2023 It is unclear if his limited ROM in the right shoulder is due to his neurological event or a frozen shoulder. [email or web address] Not available 10/17/2023 14:08:00 Plan of Treatment Reminders Order Date Submit Date Provider Last Modified By Organization Details Last Modified Time Details Appointments ANY 30 2024 02:45P Sagar Yanez MD Not available Not available Not available Lab urinaly sis, dipstic k 2023 024 [facility], [address] [place] [address], [address], [place], [address], 05/09/2024 15:09:31 CBC w/ auto diff 2023 024 [facility], [address] [place] [address], [address], [place], [address], 10/19/2023 06:19:20 CMP, serum or plasma 2023 024 [facility], [address] [place] [address], [address], [place], [address], 10/19/2023 06:19:18 lipid panel, serum 2023 024 [facility], [address] [place] [address], [address], [place], [address], 10/19/2023 06:19:18 HbA1c (hemogl obin A1c), blood 2023 024 [facility], [address], [address], [place], [address], 10/19/2023 06:19:19 albumin /creati nine, mass ratio, urine 2023 024 [facility], [address], [address], [place], [address], 05/09/2024 15:09:31 noninva sive colorec alfredito cancer DNA + occult blood screeni ng, QL, stool 2023 024 [employer] (Cologuard Orders Only), [address], [address], [place], [address], 02/10/2024 11:32:22 Referral podiatr ist referra l 2024 025 UZIEL Olmstead DPM, [address], [address], [place], [address], 12/03/2024 04:18:18 gastroe nterolo gist referra l - Colon cancer screeni carlos, please 2023 024 [facility], [address], [place], [address], 11/30/2024 15:50:42 diabeti c ophthal mology referra l - HBA1C 6.8% 10/18/19 24 2023 024 [facility], [address], [place], [address], 11/30/2024 15:51:31 cardiol ogist referra l - HTN 2023 024 [place], [address], [address], [place], [address], 05/08/2024 10:35:41 phys[address]i st referra l - R. adam weaknes s 2023 024 [facility], [address] [place], [address], 04/27/2024 13:32:42 pain managem ent referra l - Follow up 2023 024 UZIEL Dotson MD, [address], [place], [address], 08/31/2024 10:56:[address] referra l - Please call patient for appoint ment,samantha baum! 2023 024 mariellakassi Sinha MD, [address], [address], [place], [address], 04/27/2024 13:32:[address] st referra l - Please call patient , thanks! 2023 024 [facility], [address] [place], [address], 10/06/2023 16:06:03 Procedures None recorde d. Surgeries None recorde d. Imaging XR, hip + pelvis, unilate ral - Chronic right hip pain 2024 025 [facility], [address], [place], [address], 11/19/2024 09:25:23 CT, abdomen + pelvis, w/ contras t - Chronic right flank, right lower quadran t pain 2024 025 [facility], [address], [place], [address], 11/27/2024 11:39:50 Medication Orders hydrala zine 100 mg tablet 2023 024 UZIEL [id number], [address], [place], [place], [id number], 02/10/2024 11:31:58 levetir acetam 1,000 mg tablet 2023 024 [id number], [address], [place], [place], [id number], 09/02/2023 14:34:20 Patient TargetsNo targets recorded. Patient Instructions Encounter Date Encounter Id Patient Instructions Last Modified By Organization Details Last Modified Time 09/02/2023 [id number] [facility]: [facility] Not available 09/02/2023 14:34:20 10/17/2023 [id number] chronic pain: ca re instructions oajao Not available 10/17/2023 12:51:17 high blood pressure: care instructions oajao Not available 10/17/2023 12:57:22 learning about high blood pressure oajao Not available 10/17/2023 12:57:22 PT Temporary Staff [employer] [facility] Follow up in 4 weeks with all your medications oajao Not available 10/17/2023 14:07:11 12/16/2023 [id number] high blood pressure: care instructions oajao Not available 12/16/2023 13:22:52 learning about high blood pressure oajao Not available 12/16/2023 13:22:53 Cardiology Monit or your blood pressure at home. Follow up in 3 weeks with all your medications oajao Not available 12/16/2023 14:56:43 02/10/2024 [id number] constipation: ca re instructions oajao Not available 02/10/2024 12:07:27 Cologuard as previously ordered Ophthalmology Hydralazine TID Avoid NSAIDS Follow up in 4 weeks with all your medications oajao Not available 02/10/2024 12:06:22 11/16/2024 [id number] hip pain: care instructions oajao Not available 11/16/2024 20:51:07 hammer toe: care instructions oajao Not available 11/16/2024 20:51:[address] abdomen Podiatry Follow up as scheduled on 12/28/2024 [email or web address] Not available 11/16/2024 20:55:52 Reason for Referral Physical Therapist Referral for Right hemiparesis Please call patient, thanks! Referring Physician: Nghia [facility], Encounter Date: 09/02/2023 Urologist Referral for Lower urinary tract symptoms due to benign prostatic hypertrophy Please call patient for appointment,thanks! 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 sided weakness Referring Physician: Catrachito Yanez [facility], Encounter Date: 10/17/2023 Pain Management Referral for Chronic pain Chronic R. shoulder and LBP Follow up Referring Physician: Catrachito Yanez [facility], Encounter Date: 10/17/2023 Fitness Studies Teacher Referral for Be nign essential hypertension HTN HTN Referring Physician: Catrachito Yanez [facility], Encounter Date: 12/16/2023 Diabetic Ophthalmology Refer ral for Diabetes mellitus HBA1C 6.8% 10/18/2023 HBA1C 6.8% 10/18/2023 Referring Physician: Catrachito Yanez [facility], Encounter Date: 02/10/2024 Nps Referral for Screening for malignant neoplasm of colon Colon cancer screening, please Colon cancer screening, please Referring Physician: Catrachito Yanez [facility], Encounter Date: 02/10/2024 Servicer Referral for Rossy er toe Hammer toe R. #2 Referring Physician: Catrachito Yanez [facility], Encounter Date: 11/16/2024 Results Created Date Observation Date Name Description Value Unit Range Abnormal Flag Note LastModifiedBy Organization Detail LastModifiedTime 10/17/19 25 10/16/2024 COLOG UARD cologuard result Cancel led - Order d not applic able Not Available [facility] (Cologuard Orders Only) [address], [place], [address], 10/16/2024 12:47:08 10/18/19 24 10/19/2023 LIPID PANEL cholesterol, total 101 mg/dL 100-19 9 Not Available [facility] ([facility]) [address] [place], [address], 10/19/2023 06:19:18 10/18/19 24 10/19/2023 LIPID PANEL triglyceride s 57 mg/dL 0-149 Not Available [facility] ([facility]) [address] [place], [address], 10/19/2023 06:19:18 10/18/19 24 10/19/2023 LIPID PANEL HDL cholesterol 34 mg/dL >39 below low normal Not Available [facility] ([facility]) [address] [place], [address], 10/19/2023 06:19:18 10/18/19 24 10/19/2023 LIPID PANEL VLDL cholesterol cole 13 mg/dL 5-40 Not Available [facility] ([facility]) [address] [place], [address], 10/19/2023 06:19:18 10/18/19 24 10/19/2023 LIPID PANEL LDL chol calc ([facility]) 54 mg/dL 0-99 Not Available [facility] ([facility]) [address] [place], [address], 10/19/2023 06:19:18 10/18/19 24 10/19/2023 COMP. METAB OLIC PANEL (14) glucose 113 mg/dL 70-99 above high normal Not Available [facility] ([facility]) [address] [place], [address], 10/19/2023 06:19:18 10/18/19 24 10/19/2023 COMP. METAB OLIC PANEL (14) BUN 13 mg/dL 8-27 Not Available [facility] ([facility]) [address] [place], [address], 10/19/2023 06:19:18 10/18/19 24 10/19/2023 COMP. METAB OLIC PANEL (14) creatinine 1.24 mg/dL 0.76-1 .27 Not Available [facility] ([facility]) [address] [place], [address], 10/19/2023 06:19:18 10/18/19 24 10/19/2023 COMP. METAB OLIC PANEL (14) eGFR 64 mL/mi n/1.7 3 >59 Not Available [facility] ([facility]) [address] [place], [address], 10/19/2023 06:19:18 10/18/19 24 10/19/2023 COMP. METAB OLIC PANEL (14) BUN/creatini ne ratio 10 10-24 Not Available [facility] ([facility]) [address], [place], [address], 10/19/2023 06:19:18 10/18/19 24 10/19/2023 COMP. METAB OLIC PANEL (14) sodium 143 mmol/ L 134-14 4 Not Available [facility] ([facility]) [address] [place], [address], 10/19/2023 06:19:18 10/18/19 24 10/19/2023 COMP. METAB OLIC PANEL (14) potassium 4.3 mmol/ L 3.5-5. 2 Not Available [facility] ([facility]) [address] [facility] [place], [address], 10/19/2023 06:19:18 10/18/19 24 10/19/2023 COMP. METAB OLIC PANEL (14) chloride 107 mmol/ L 96-106 above high normal Not Available [facility] ([facility]) [address] [place], [address], 10/19/2023 06:19:18 10/18/19 24 10/19/2023 COMP. METAB OLIC PANEL (14) carbon dioxide, total 22 mmol/ L 20- Not Available [facility] ([facility]) [address] [facility], [place], [address], 10/19/2023 06:19:18 10/18/19 24 10/19/2023 COMP. METAB OLIC PANEL (14) calcium 9.4 mg/dL 8.6-10 .2 Not Available [facility] ([facility]) [address], [place], [address], 10/19/2023 06:19:18 10/18/19 24 10/19/2023 COMP. METAB OLIC PANEL (14) protein, total 6.8 g/dL 6.0-8. 5 Not Available [facility] ([facility]) [address] [facility], [place], [address], 10/19/2023 06:19:18 10/18/19 24 10/19/2023 COMP. METAB OLIC PANEL (14) albumin 4.2 g/dL 3.9-4. 9 Not Available [facility] ([facility]) [address] [facility], [place], [address], 10/19/2023 06:19:18 10/18/19 24 10/19/2023 COMP. METAB OLIC PANEL (14) globulin, total 2.6 g/dL 1.5-4. 5 Not Available [facility] ([facility]) [address] [place], [address], 10/19/2023 06:19:18 10/18/19 24 10/19/2023 COMP. METAB OLIC PANEL (14) A/G ratio 1.6 1.2-2. 2 Not Available [facility] ([facility]) [address] [facility], [place], [address], 10/19/2023 06:19:18 10/18/19 24 10/19/2023 COMP. METAB OLIC PANEL (14) bilirubin, total 0.6 mg/dL 0.0-1. 2 Not Available [facility] ([facility]) [address] [place], [address], 10/19/2023 06:19:18 10/18/19 24 10/19/2023 COMP. METAB OLIC PANEL (14) alkaline phosphatase 77 IU/L 44-121 Not Available [facility] ([facility]) [address] [place], [address], 10/19/2023 06:19:18 10/18/19 24 10/19/2023 COMP. METAB OLIC PANEL (14) AST (SGOT) 32 IU/L 0-40 Not Available [facility] ([facility]) [address] [place], [address], 10/19/2023 06:19:18 10/18/19 24 10/19/2023 COMP. METAB OLIC PANEL (14) ALT (SGPT) 60 IU/L 0-44 above high normal Not Available [facility] ([facility]) [address] [place], [address], 10/19/2023 06:19:18 10/18/19 24 10/18/2023 HEMOG LOBIN A1C hemoglobin A1C 6.8 % 4.8-5. 6 above high normal Predi abete s: 5.7 - 6.4 Diabe jolie: >6.4 Glyce kavya contr ol for adult s with diabe jolie: <7.0 Not Available [facility] ([facility]) [address] [place], [address], 10/19/2023 06:19:19 10/18/19 24 10/18/2023 CBC WITH DIFFE RENTI AL/PL ATELE T WBC 5.8 x10e3 /uL 3.4-10 .8 Not Available [facility] ([facility]) [address] [place], [address], 10/19/2023 06:19:19 10/18/19 24 10/18/2023 CBC WITH DIFFE RENTI AL/PL ATELE T RBC 4.27 x10e6 /uL 4.14-5 .80 Not Available [facility] ([facility]) [address] [place], [address], 10/19/2023 06:19:19 10/18/19 24 10/18/2023 CBC WITH DIFFE RENTI AL/PL ATELE T hemoglobin 11.8 g/dL 13.0-1 7.7 below low normal Not Available [facility] ([facility]) [address] [place], [address], 10/19/2023 06:19:19 10/18/19 24 10/18/2023 CBC WITH DIFFE RENTI AL/PL ATELE T hematocrit 36.2 % 37.5-5 1.0 below low normal Not Available [facility] ([facility]) [address] [place], [address], 10/19/2023 06:19:19 10/18/1910/18/2023 CBC WITH DIFFE RENTI AL/PL ATELE T MCV 85 fL 79-97 Not Available [facility] ([facility]) [address] [place], [address], 10/19/2023 06:19:19 10/18/1910/18/2023 CBC WITH DIFFE RENTI AL/PL ATELE T MCH 27.6 pg 26.6-3 3.0 Not Available [facility] ([facility]) [address] [place], [address], 10/19/2023 06:19:19 10/18/19 24 10/18/2023 CBC WITH DIFFE RENTI AL/PL ATELE T MCHC 32.6 g/dL 31.5-3 5.7 Not Available [facility] ([facility]) [address] [facility] [place], [address], 10/19/2023 06:19:19 10/18/19 24 10/18/2023 CBC WITH DIFFE RENTI AL/PL ATELE T RDW 13.3 % 11.6-1 5.4 Not Available [facility] ([facility]) [address] [facility], [place], [address], 10/19/2023 06:19:19 10/18/19 24 10/18/2023 CBC WITH DIFFE RENTI AL/PL ATELE T platelets 218 x10e3 /uL 150-45 0 Not Available [facility] ([facility]) [address] [facility], [place], [address], 10/19/2023 06:19:19 10/18/19 24 10/18/2023 CBC WITH DIFFE RENTI AL/PL ATELE T neutrophils 61 % notest ab. Not Available [facility] ([facility]) [address] [facility], [place], [address], 10/19/2023 06:19:19 10/18/19 24 10/18/2023 CBC WITH DIFFE RENTI AL/PL ATELE T lymphs 30 % notest ab. Not Available [facility] ([facility]) [address] [facility], [place], [address], 10/19/2023 06:19:19 10/18/19 24 10/18/2023 CBC WITH DIFFE RENTI AL/PL ATELE T monocytes 6 % notest ab. Not Available [facility] ([facility]) [address] [facility], [place], [address], 10/19/2023 06:19:19 10/18/19 24 10/18/2023 CBC WITH DIFFE RENTI AL/PL ATELE T eos 3 % notest ab. Not Available [facility] ([facility]) [address] [facility], [place], [address], 10/19/2023 06:19:19 10/18/19 24 10/18/2023 CBC WITH DIFFE RENTI AL/PL ATELE T basos 0 % notest ab. Not Available [facility] ([facility]) [address] [facility], [place], [address], 10/19/2023 06:19:19 10/18/19 24 10/18/2023 CBC WITH DIFFE RENTI AL/PL ATELE T neutrophils (absolute) 3.5 x10e3 /uL 1.4-7. 0 Not Available [facility] ([facility]) [address] [facility], [place], [address], 10/19/2023 06:19:19 10/18/19 24 10/18/2023 CBC WITH DIFFE RENTI AL/PL ATELE T lymphs (absolute) 1.8 x10e3 /uL 0.7-3. 1 Not Available [facility] ([facility]) [address] [place], [address], 10/19/2023 06:19:19 10/18/19 24 10/18/2023 CBC WITH DIFFE RENTI AL/PL ATELE T monocytes(ab solute) 0.4 x10e3 /uL 0.1-0. 9 Not Available [facility] ([facility]) [address] [place], [address], 10/19/2023 06:19:19 10/18/19 24 10/18/2023 CBC WITH DIFFE RENTI AL/PL ATELE T eos (absolute) 0.2 x10e3 /uL 0.0-0. 4 Not Available [facility] ([facility]) [address] [place], [address], 10/19/2023 06:19:19 10/18/19 24 10/18/2023 CBC WITH DIFFE RENTI AL/PL ATELE T baso (absolute) 0.0 x10e3 /uL 0.0-0. 2 Not Available [facility] ([facility]) [address] [facility], [place], [address], 10/19/2023 06:19:19 10/18/19 24 10/18/2023 CBC WITH DIFFE RENTI AL/PL ATELE T immature granulocytes 0 % notest ab. Not Available [facility] ([facility]) [address] [facility], [place], [address], 10/19/2023 06:19:19 10/18/19 24 10/18/2023 CBC WITH DIFFE RENTI AL/PL ATELE T immature grans (abs) 0.0 x10e3 /uL 0.0-0. 1 Not Available [facility] ([facility]) [address] [facility], [place], [address], 10/19/2023 06:19:19 06/04/20 24 06/04/2024 NM, myoca rdial perfu gail scan No observ ation record ed. oao [facility] [address] , [place], [address], 06/05/2024 11:46:22 06/15/20 24 06/15/2024 trans -thor acic echoc ardio gram (TTE) (PROC ) No observ ation record ed. [facility] [address] , [place], [address], 06/26/2024 10:10:27 06/15/20 24 06/15/2024 US, duple x, renal arter y No observ ation record ed. [facility] [address] , [place], [address], 06/26/2024 10:10:44 06/15/20 24 06/15/2024 US, duple x, carot id arter y No observ ation record ed. [facility] [address] , [place], [address], 06/26/2024 10:10:44 Result Notes None recorded. Problems Name Problem SNOMED Code Status Onset Date Resolution Date Notes Provider Name and Address Organization Details Recorded Time Seizure disorder 250721348 Active 2022 [facility] Available [facility] 4 06:54:43 Orthostati c hypotensio n 34659980 Active 2014 Catrachito Yanez MD Attn: Accounting ,[address] [place], [address] , [facility] 4 13:58:03 Chest pain 85521247 Active 2015 Catrachito Yanez MD Attn: Accounting ,[address] [place], [address] , [facility] 4 13:58:03 Hypertensi ve disorder 51212658 Active 2015 Catrachito Yanez MD Attn: Accounting ,[address] [place], [address] , [facility] 4 13:58:03 Dizziness 565527340 Active 2014 Catrachito Yanez MD Attn: Accounting ,[address] [place], [address] , [facility] 4 13:58:03 Coronary arterioscl erosis 32376760 Active 2015 Catrachito Yanez MD Attn: Accounting ,[address] [place], [address] , [facility] 4 13:58:03 Colon cancer screening declined 4139005455521 9 Active 2023 Catrachito Yanez MD Attn: Accounting ,[address] [place], [address] , [facility] 4 14:05:03 Hemiparesi s as late effect of cerebrovas cular accident 749802605 Active 2023 Catrachito Yanez MD Attn: Accounting ,[address] [place], [address] , [facility] 4 14:54:48 Benign essential hypertensi on 6382509 Active 2023 Catrachito Yanez MD Attn: Accounting ,[address] [facility], [place], [address] , [facility] 4 11:08:25 Diabetes mellitus 76633153 Active 2015 Catrachito Yanez MD Attn: Accounting ,[address] [facility], [place], [address] , [facility] 4 13:57:32 Abnormal breathing 919490251 Active Not Available [facility] 4 06:54:43 Chronic low back pain 789939549 Active Not Available [facility] 4 06:54:43 Obesity 975029156 Active Not Available [facility] 4 06:54:43 Coronary atheroscle rosis 106497255 Active Not Available [facility] 4 06:54:43 Sickle cell trait 64851812 Active Not Available [facility] 4 06:54:43 Pain in left knee Active Not Available [facility] 4 06:54:43 Pain in right knee Active Not Available [facility] 4 06:54:43 Problem Notes None recorded. Procedures Surgical History Date Name Laterality Status Provider Name and Address Organization Details Recorded Time 4 Diabetic Foot Exam completed Catrachito Yanez MD Attn: Accounting,[address] [place], [address], [facility] 02/10/2024 12:04:59 Imaging Results None recorded. Procedure Notes None recorded. Medical Equipment None Reported. Allergies Allergen ID Allergen Name Allergen Category Reaction Reaction Severity Criticality Documentation Date Start Date Code Code System Note Provider Name and Address Organization Details Recorded Time 748947 tramadol medicatio n Not available Not available Not available 10/17/2023 88941 RxNorm It messe s with my bowel s, it makes me dizzy Catrachito Yanez MD Attn: Eyal quiros,[address] [facility], [place], [address], [place] [facility] 4 13:57:36 306646 furosemid e medicatio n nausea Not available Not available 10/17/20232020 4603 RxNorm Catrachito Yanez MD Attn: Eyal qurios,[address] [facility], [place], [address], [facility] 4 13:57:17 037971 No known allergy (situatio n) Not available Not available Not available Not available 10/17/2023 24911 6003 SNOMED Catrachito Yanez MD Attn: Eyal quiros,[address] [facility], [place], [address], [facility] 4 13:57:49 Medications Name Sig Start Date Stop Date Status Note LastModified by Organization Details LastModified Time nifedipine ER 30 mg tablet,exte nded release 24 hr 09/26 completed Not Available Not Available Not Available cyclobenzap rine 10 mg tablet Take 1 tablet as needed by oral route at bedtime for 30 days. 12/08 completed Not Available Not Available Not Available amoxicillin 500 mg capsule 09/08 completed Not Available Not Available Not Available furosemide 40 mg tablet TAKE 1 TABLET BY MOUTH EVERY DAY 02/05 completed Not Available Not Available Not Available atorvastati n 40 mg tablet TAKE 1 TABLET BY MOUTH EVERY DAY AT BEDTIME active Not Available Not Available No t Available carvedilol 25 mg tablet TAKE 1 TABLET BY MOUTH TWICE DAILY active Not Available Not Available No t Available clonidine HCl 0.1 mg tablet TAKE 1 TABLET BY MOUTH TWICE DAILY 11/04 completed Not Available Not Available Not Available prednisone 10 mg tablet 11/04 completed Not Available Not Available Not Available tizanidine 2 mg tablet TAKE 1 TABLET BY MOUTH THREE TIMES DAILY NEEDED 12/15 completed Not Available Not Available Not Available trazodone 50 mg tablet TAKE 1 TABLET BY MOUTH AT BEDTIME NEEDED FOR INSOMNIA 02/05 completed Not Available Not Available Not Available azithromyci n 250 mg tablet TAKE 2 TABLETS (500 MG) BY ORAL ROUTE ONCE DAILY FOR 1 DAY THEN 1 TABLET (250 MG) BY ORAL ROUTE ONCE DAILY FOR 4 DAYS 02/05 completed Not Available Not Available Not Available aspirin 325 mg tablet TAKE 1 TABLET BY MOUTH EVERY DAY AFTER A MEAL 11/04 completed Not Available Not Available Not Available tizanidine 4 mg tablet TAKE ONE TABLET BY MOUTH THREE TIMES DAILY NEEDED 11/04 completed Not Available Not Available Not Available hydrocodone 5 mg-acetamin ophen 325 mg tablet TAKE 1 TABLET BY MOUTH EVERY 8 HOURS NEEDED FOR PAIN 11/04 completed Not Available Not Available Not Available meloxicam 15 mg tablet TAKE 1 TABLET BY MOUTH EVERY DAY 12/15 completed Not Available Not Available Not Available naltrexone 50 mg tablet Take 1 tablet every day by oral route as directed for 30 days. 12/08 completed Not Available Not Available Not Available lisinopril 20 mg tablet 07/09 completed Not Available Not Available Not Available glipizide 10 mg tablet TAKE 1 TABLET BY MOUTH DAILY 2024 active Not Available Not Available Not Avai lable isosorbide mononitrate ER 30 mg tablet,exte nded release 24 hr 07/09 completed Not Available Not Available Not Available Wellbutrin SR 150 mg tablet, 12 hr sustained-r elease Take 1 tablet twice a day by oral route as directed for 30 days. 12/08 completed Not Available Not Available Not Available Tylenol Arthritis Pain 650 mg tablet,exte nded release Take 2 tablets every 8 hours by oral route as needed for 15 days, for Pain. 2024 active Not Available Not Available Not Avai lable acetaminoph en 300 mg-codeine 30 mg tablet 11/04 completed Not Available Not Available Not Available clopidogrel 75 mg tablet TAKE 1 TABLET BY MOUTH EVERY DAY DIRECTED 12/15 completed Not Available Not Available Not Available ciprofloxac in 500 mg tablet 11/08 completed Not Available Not Available Not Available sulfamethox azole 800 mg-trimetho prim 160 mg tablet Take 1 tablet every 12 hours by oral route after meals for 5 days. 11/08 completed Not Available Not Available Not Available aspirin 81 mg tablet,yoav yed release TAKE ONE TABLET BY MOUTH EVERY DAY TO PREVENT BLOOD CLOTS active Not Available Not Available No t Available tramadol 50 mg tablet TAKE 2 TABLET BY MOUTH TWICE DAILY active Not Available Not Available No t Available amitriptyli ne 50 mg tablet TAKE 1 TABLET BY MOUTH EVERY DAY DIRECTED 11/04 completed Not Available Not Available Not Available triamcinolo ne acetonide 0.1 % topical cream APPLY A THIN LAYER TO THE AFFECTED AREA(S) BY TOPICAL ROUTE 2 TIMES PER DAY 02/08 completed Not Available Not Available Not Available glimepiride 2 mg tablet Take 1 tablet(s) every day by oral route. 07/09 completed Not Available Not Available Not Available baclofen 20 mg tablet Take 1 tablet 4 times a day by oral route as directed for 30 days. 08/06 completed Not Available Not Available Not Available ketorolac 10 mg tablet TAKE 1 TABLET BY MOUTH EVERY 6 HOURS FOR 5 DAYS NEEDED 02/05 completed Not Available Not Available Not Available oxycodone-a cetaminophe n 5 mg-325 mg tablet 08/06 completed Not Available Not Available Not Available isosorbide mononitrate ER 60 mg tablet,exte nded release 24 hr TAKE ONE TABLET DAILY 11/07 completed Not Available Not Available Not Available amitriptyli ne 25 mg tablet TAKE 1 TABLET BY MOUTH TWICE DAILY DIRECTED 12/15 completed Not Available Not Available Not Available aspirin 325 mg tablet,yoav yed release 05/10 completed Not Available Not Available Not Available tamsulosin 0.4 mg capsule TAKE 1 CAPSULE BY MOUTH DAILY AT BEDTIME 2024 active Not Available Not Available Not Avai lable OneTouch Ultra Test strips 09/08 completed Not Available Not Available Not Available baclofen 10 mg tablet TAKE 1 TABLET BY MOUTH THREE TIMES DAILY AFTER MEALS 02/05 completed Not Available Not Available Not Available cephalexin 500 mg capsule Take 1 capsule every 6 hours by oral route after meals for 7 days. 12/08 completed Not Available Not Available Not Available hydralazine 100 mg tablet TAKE 1 TABLET BY MOUTH THREE TIMES DAILY DIRECTED FOR HYPERTENS ION active Not Available Not Available No t Available pantoprazol e 40 mg tablet,yoav yed release TAKE 1 TABLET BY MOUTH EVERY NIGHT AT BEDTIME 02/05 completed Not Available Not Available Not Available metformin 1,000 mg tablet TAKE 1 TABLET BY MOUTH TWICE DAILY 11/04 completed Not Available Not Available Not Available nystatin 100,000 unit/gram topical cream APPLY TO THE AFFECTED AREA(S) BY TOPICAL ROUTE 2 TIMES PER DAY 03/22 completed Not Available Not Available Not Available lisinopril 10 mg tablet TAKE ONE TABLET DAILY 02/08 completed Not Available Not Available Not Available glimepiride 4 mg tablet TAKE 1 TABLET BY MOUTH DAILY 05/09 completed Not Available Not Available Not Available lidocaine 5 % topical patch UNWRAP AND APPLY 1 PATCH TO AFFECTED AREA FOR 12 HOURS ON THEN REMOVE FOR 12 HOURS DAILY 11/04 completed Not Available Not Available Not Available losartan 25 mg tablet 08/06 completed Not Available Not Available Not Available nitroglycer in 0.4 mg sublingual tablet 11/04 completed Not Available Not Available Not Available gabapentin 300 mg capsule TAKE 1 CAPSULE BY MOUTH THREE TIMES DAILY DIRECTED 12/15 completed Not Available Not Available Not Available aspirin 81 mg chewable tablet Chew 1 tablet every day by oral route. 03/22 completed Not Available Not Available Not Available acetaminoph en 300 mg-codeine 60 mg tablet TAKE 1 TABLET BY MOUTH THREE TIMES DAILY NEEDED. active Not Available Not Available No t Available hydralazine 50 mg tablet TAKE 1 TABLET BY MOUTH THREE TIMES DAILY 11/04 completed Not Available Not Available Not Available alcohol swabs Apply 1 pad every day by topical route for 30 days. 09/08 completed Not Available Not Available Not Available furosemide 20 mg tablet TAKE 1 TABLET BY MOUTH EVERY MORNING 02/05 completed Not Available Not Available Not Available gabapentin 100 mg capsule TAKE 1 CAPSULE BY MOUTH THREE TIMES DAILY DIRECTED active Not Available Not Available No t Available ergocalcife rol (vitamin D2) 1,250 mcg (50,000 unit) capsule Take 1 capsule every week by oral route as directed for 30 days. 11/07 completed Not Available Not Available Not Available lisinopril 40 mg tablet 05/11 completed Not Available Not Available Not Available losartan 100 mg tablet TAKE 1 TABLET BY MOUTH DAILY active Not Available Not Available No t Available atenolol 50 mg tablet 08/06 completed Not Available Not Available Not Available naproxen 500 mg tablet 07/09 completed Not Available Not Available Not Available nortriptyli ne 50 mg capsule Take 1 capsule twice a day by oral route as directed for 30 days. 06/17 completed Not Available Not Available Not Available finasteride 1 mg tablet Take 1 tablet(s) every day by oral route at bedtime for 30 days. 12/15 completed Appt 2023 Not Available Not Available Not Available Ventolin HFA 90 mcg/actuati on aerosol inhaler 05/10 completed Not Available Not Available Not Available magnesium 250 mg (as magnesium oxide) tablet TAKE 1 TABLET BY MOUTH DAILY 11/04 completed Not Available Not Available Not Available nitrofurant oin monohydrate /macrocryst als 100 mg capsule 05/10 completed Not Available Not Available Not Available lactulose 10 gram/15 mL oral solution Take 10 mL every day by oral route. 11/04 completed Not Available Not Available Not Available omega-3 acid ethyl esters 1 gram capsule 07/09 completed Not Available Not Available Not Available calcium 500 mg (as carbonate)- vitamin D3 5 mcg (200 unit) tablet Take 2 tablets every day by oral route as directed for 30 days. 02/05 completed Not Available Not Available Not Available losartan 100 mg-hydrochl orothiazide 12.5 mg tablet Take 1 tablet(s) every day by oral route. 07/09 completed Not Available Not Available Not Available levetiracet am 1,000 mg tablet TAKE 1 TABLET BY MOUTH TWICE DAILY active Not Available Not Available No t Available OneTouch UltraMini kit 09/08 completed Not Available Not Available Not Available fenofibrate nanocrystal lized 145 mg tablet Take 1 tablet every day by oral route at dinner for 30 days. 02/08 completed Not Available Not Available Not Available Januvia 100 mg tablet TAKE 1 TABLET BY MOUTH EVERY DAY AFTER MEALS 12/15 completed Not Available Not Available Not Available calcium 600 mg (as carbonate)- vitamin D3 10 mcg (400 unit) tablet TAKE ONE TABLET DAILY 03/22 completed Not Available Not Available Not Available Symbicort 160 mcg-4.5 mcg/actuati on HFA aerosol inhaler 05/10 completed Not Available Not Available Not Available diclofenac 1 % topical gel APPLY TO THE AFFECTED AREA TWICE DAILY NEEDED active Not Available Not Available No t Available Calcium with Vitamin D3 600 mg (carbonate) -10 mcg (400 unit) capsule Take 1 capsule every day by oral route. 02/08 completed Not Available Not Available Not Available Vitamin D 5,000 unit tablet Take 1 tablet every day by oral route. 08/06 completed Not Available Not Available Not Available Alfonso Pozo 33 gauge 09/08 completed Not Available Not Available Not Available Viviane Allergy 180 mg tablet Take 1 tablet every day by oral route as directed for 30 days. 02/08 completed Not Available Not Available Not Available Tradjenta 5 mg tablet TAKE ONE TABLET DAILY 08/06 completed Not Available Not Available Not Available Stimulant Laxative Plus 8.6 mg-50 mg tablet TAKE 1 TABLET BY MOUTH TWICE DAILY NEEDED active Not Available Not Available No t Available Spiriva Respimat 2.5 mcg/actuati on solution for inhalation 05/10 completed Not Available Not Available Not Available aspirin 80 mg tablet Take by oral route. 05/10 completed Not Available Not Available Not Available Relistor 150 mg tablet TAKE 3 TABLETS BY MOUTH EVERY DAY NEEDED FOR CONSTIPAT ION 11/04 completed Not Available Not Available Not Available Vitals Date Recorded Body height Body mass index (BMI) Body weight Heart rate Oxygen saturation Oxygen saturation in Arterial blood by Pulse oximetry Systolic blood pressure Diastolic blood pressure Provider Name and Address Organization Details Last Updated DateTime 4 172.09 cm 30 kg/m2 50595.1 g 69 /min 98 % 98 % 146 mm[Hg] 78 mm[Hg] Lisa Mccoy [place] - [facility] 4 12:17:54 Date Recorded Body height Body mass index (BMI) Body weight Heart rate Oxygen saturation Oxygen saturation in Arterial blood by Pulse oximetry Respiratory rate Systolic blood pressure Diastolic blood pressure Provider Name and Address Organization Details Last Updated DateTime 4 172.09 cm 31.5 kg/m2 34266.5 9 g 62 /min 96 % 96 % 18 /min 140 mm[Hg] 86 mm[Hg] Jena Sanches [place] - [facility] 4 12:29:45 Date Recorded Body height Body mass index (BMI) Body weight Heart rate Oxygen saturation Oxygen saturation in Arterial blood by Pulse oximetry Respiratory rate Systolic blood pressure Diastolic blood pressure Provider Name and Address Organization Details Last Updated DateTime 5 172.09 cm 31.8 kg/m2 70883.7 g 78 /min 97 % 97 % 16 /min 146 mm[Hg] 70 mm[Hg] Jena Sanches MA [facility] 5 15:48:33 Date Recorded Systolic blood pressure Diastolic blood pressure Provider Name and Address Organization Details Last Updated DateTime 12/16/2023 150 mm[Hg] 100 mm[Hg] Catrachito Yanez MD Attn: [address] [place], [address], [facility] 12/16/2023 13:21:18 Date Recorded Body height Body mass index (BMI) Body weight Heart rate Oxygen saturation Oxygen saturation in Arterial blood by Pulse oximetry Respiratory rate Body temperature Systolic blood pressure Diastolic blood pressure Provider Name and Address Organization Details Last Updated DateTime 4 172.09 cm 31.9 kg/m2 75579.3 7 g 60 /min 97 % 97 % 16 /min 98.4 [degF] 144 mm[Hg] 96 mm[Hg] Jena Sanches MA [facility] 4 12:35:32 Date Recorded Body height Body mass index (BMI) Body weight Heart rate Oxygen saturation Oxygen saturation in Arterial blood by Pulse oximetry Respiratory rate Systolic blood pressure Diastolic blood pressure Provider Name and Address Organization Details Last Updated DateTime 4 172.09 cm 31.2 kg/m2 43637.8 4 g 64 /min 97 % 97 % 18 /min 160 mm[Hg] 90 mm[Hg] Jena Sanches MA [facility] 4 11:03:39 Social History Question Answer Notes LastModified by Organizat ion Details LastModified Time Tobacco Smoking Status Never Smoker DAKOTA Wolfe [facility] 01/05/2017 10:41:46 Do You Have An Advance Directive? No Information not available 04/11/2023 Are You Blind Or Do You Have Difficulty Seeing? No Information not available 04/11/2023 What Is Your Level Of Caffeine Consumption? None Information not available 07/12/2023 Are You Deaf Or Do You Have Serious Difficulty Hearing? No Information not available 04/11/2023 What Type Of Diet Are You Following? REGULAR Information not available 04/11/2023 What Is The Highest Grade Or Level Of School You Have Completed Or The Highest Degree You Have Received? [id number] Information not available 04/11/2023 Are There Any Guns Present In Your Home? No Information not available 04/11/2023 What Was The Date Of Your Most Recent Tobacco Screening? 11/16/2024 Information not available 11/16/2024 What Is Your Relationship Status? Single Information not available 04/11/2023 Do You Use Your Seat Belt Or Car Seat Routinely? Yes Information not available 04/11/2023 Do You Have Smoke And Carbon Monoxide Detectors In Your Home? Yes Information not available 04/11/2023 How Much Tobacco Do You Smoke? No Information not available 01/05/2017 Do You Use Sunscreen Routinely? No Information not available 04/11/2023 How Many Years Have You Smoked Tobacco? 0 Information not available 01/05/2017 Sex: Male Functional Status Question Answer Note LastModified by Organizat ion Details LastModified Time Do you use any illicit or recreational drugs? No Information not available 12/16/2023 What is your level of alcohol consumption? None [email or web address] Information not available 07/07/2015 Are you currently employed? No Information not available 04/11/2023 Are you able to care for yourself? Yes but has healthcare translator Information not available 04/11/2023 What is your exercise level? Occasional Information not available 04/11/2023 Mental Status Question Answer Note LastModified by Organization D etails LastModified Time Do you feel stressed (tense, restless, nervous, or anxious, or unable to sleep at night)? [id number] Information not available 04/11/2023 Family History Relationship Description Onset Age of this Age Resolved Age Notes LastModified by Organization Details LastModified Time Mother Hypertensive disorder [email or web address] Not available 07/07 14:57:30 Father Suspected prostate cancer [email or web address] Not available 07/07 14:57:30 Medical History Condition Response High Blood Pressure Y Heart Attack ([place]) Y Diabetes Y Stroke Y High Cholesterol Y Immunizations Vaccine Type Date Status Note Provider Nam e and Address Organization Details Recorded Time Influenza, split virus, quadrivalent, PF 0 completed Catrachito Yanez MD Attn: [address], [place], [address] [place] [address], [place] - [facility] 10/17/2023 13:58:16 COVID-19, mRNA, LNP-S, PF, 30 mcg/0.3 mL dose 1 completed Catrachito Yanez MD Attn: [address], [place], [address] [place] [address], [place] [facility] 10/17/2023 13:58:16 COVID-19, mRNA, LNP-S, PF, 30 mcg/0.3 mL dose 1 completed Catrachito Yanez MD Attn: [address], [place], [address] [place] [address], [place] [facility] 10/17/2023 13:58:16 Influenza, split virus, quadrivalent, preservative 8 completed Not Available [facility] 02:36:32 Past Encounters Encounter ID Performer Location Encounter Start Date Encounter Closed Date Diagnosis/Indication Diagnosis SNOMED-CT Code Diagnosis ICD10 Code Diagnosis Note [id number] Nghia Ag MD [facility] (Adult Med) [address] [place] [address] [id number] 07/07/2015 14:25:19 07/10/2015 09:48:32 Diabetes mellitus 59937698 E11.65 Abnormal breathing 80085 3002 R06.9 Chronic low back pain 27 9104322 M54.5 Obesity 939920750 E66.9 History of hypertension 620417550 Z86.79 [id number] Nghia Ag MD [facility] (Adult Med) [address] [place] [address] [id number] 10/28/2015 11:38:05 10/28/2015 12:43:37 Diabetes mellitus 04643879 E11.65 E13.65 History of hypertension 917295256 Z86.79 Obesity 348152975 E66.9 Coronary atherosclerosis 039526973 I25.83 Sickle cell trait 400401 00 D57.3 [id number] Nghia Ag MD [facility] (Adult Med) [address] [place] [address] [id number] 12/29/2015 09:47:23 12/29/2015 11:21:38 Diabetes mellitus 61828595 E11.65 E13.65 Chronic low back pain 27 1669041 M54.5 Coronary atherosclerosis 905219039 I25.83 History of hypertension 222078308 Z86.79 Obesity 756286477 E66.9 Sickle cell trait 828935 00 D57.3 Pain in left knee 657927 6560 83737 M25.562 Pain in right knee 01136 78375 21066 M25.016 [id number] Nghia Ag MD [facility] (Adult Med) [address] [place] [address] [id number] 05/03/2016 15:51:16 05/03/2016 17:51:12 Obesity 196353796 E66.9 Hyperlipidemia 89321981 E78.5 Diabetes mellitus 494977 09 E11.65 E13.65 Coronary atherosclerosis 687021286 I25.83 Essential hypertension 82577403 I10 [id number] Nghia Ag MD [facility] (Adult Med) [address] [place] [address] [id number] 07/09/2016 14:24:52 07/12/2016 17:52:13 Diabetes mellitus 82472474 E11.65 E13.65 Coronary atherosclerosis 809014748 I25.83 Sickle cell trait 848652 00 D57.3 Chronic low back pain 27 1279704 M54.5 Hypertensive disorder 38 827345 I10 [id number] Nghia Ag MD [facility] (Adult Med) [address] [place] [address] [id number] 10/06/2016 10:21:17 10/06/2016 12:13:38 Diabetes mellitus 24984646 E11.65 E13.65 diabetic diet. Coronary atherosclerosis 297537196 I25.[address] Obesity 651540322 E66.9 Diabetic diet. Sickle cell trait 076640 00 D57.3 Osteoarthr itis of knee 215400193 M17.0 Generalize d osteoarthritis 418164726 M15.9 Vitamin D deficiency 347 12850 E55.9 Type 2 anu betes mellitus 46559663 E11.65 Essential hypertension 35876993 I10 Chronic low back pain 27 4063411 M54.5 Microalbum inuric diabetic nephropathy 255219052 E11.21 Diabetic p eripheral neuropathy 270162443 E11.40 [id number] Nghia Ag MD [facility] (Adult Med) [address] [place] [address] [id number] 01/05/2017 10:12:45 01/06/2017 12:49:19 Pain in left knee 8806868421 19701 M25.562 On baclofen. Diabetes mellitus 064535 E11.65 E13.65 diabetic diet. On tradjenta and glimepirid e. CMP, HgA1C and lipid panel in December 2016 were within the target ranges., Coronary atherosclerosis 282951774 I25.[address] Chronic low back pain 27 9338456 M54.5 On physical therapy for about one month and on gabapentin 300 mg, three times/day along with baclofen 10 mg three times /day. Sickle cell trait 121463 00 D57.3 Stable. Essential hypertension 95015296 I10 On clonidine and lisinopril , he has not taken tody yet. [id number] Nghia Ag MD [facility] (Adult Med) [address] [place] [address] [id number] 03/08/2017 09:31:12 03/08/2017 11:50:04 Chronic low back pain 297241379 M54.5 On physical therapy for about one month and on gabapentin 300 mg, three times/day along with baclofen 10 mg three times /day. Pain in left knee 145463 1426 36459 M25.562 On baclofen. Pain in right knee 51100 76912 84493 M25.561 On baclofen. Obesity 473098762 E66.9 Diabetic diet. Coronary atherosclerosis 891178815 I25.[address] Diabetes mellitus 452073 E11.65 E13.65 diabetic diet. On tradjenta and glimepirid e. CMP, HgA1C and lipid panel in December 2016 were within the target ranges., encourage to be physically active.Jose l refer to ophthalmol ogist for retina evaluation . Benign pro static hyperplasia 212915795 N40.0 Screening for malignant neoplasm of colon 219966546 Z12.11 Knee pain 01079767 M25.5 61 M25.562 On baclofen. Chronic back pain 156600 002 G89.29 On baclofen. Administra tion of influenza vaccine 91359851 Z23 Patient refuses. [id number] MD [facility] (Adult Med) [address] [place] [address] [id number] 0 05/10/2017 09:56:39 05/10/2017 11:41:57 Coronary atherosclerosis 081288048 I25.10 Three stents, under the care of his cardiologi st. Dyslipidemia 633095913 E 78.5 Low saturated fat diet. Hypertensive disorder 38 399137 I10 Low salt diet. Type 2 anu betes mellitus 36651587 E11.40 Diabetic diet,and annual ophthalmol ogist check up is recommende d. Essential hypertension 04331524 I10 On clonidine and lisinopril , he has not taken tody yet. Vitamin D deficiency 347 30809 E55.9 Screening for malignant neoplasm of prostate 366331603 Z12.5 Administra tion of influenza vaccine 99204134 Z23 He refuses. [id number] [facility]ghia Ag MD [facility] [address] [place] [address] [id number] 11/08/2017 12:26:02 11/08/2017 13:45:37 Pruritic disorder 023911370 L29.9 Type 2 anu betes mellitus 01811515 E11.40 Diabetic diet,and annual ophthalmol ogist check up is recommende d. Essential hypertension 67228162 I10 On clonidine and lisinopril , he has not taken tody yet. Dyslipidem ia due to type 2 diabetes mellitus 1201310428 02 E78.5 Diet, exercise and lose weight. Coronary atherosclerosis 168920832 I25.10 Three stents, under the care of his cardiologi st. [id number] MD [facility] (Adult Med) [address] [place] [address] [id number] 02/08/2018 10:22:13 02/08/2018 11:36:24 Screening for malignant neoplasm of colon 885539682 Z12.11 Had unremarkab le colonoscop y ex. about 2 years ago. Type 2 anu betes mellitus without complication 441501989 E11.9 Postprandi al blood sugar today 02-08-2018 is 233 mg%. his fasting blood sugar was 171 mg% on 02-06-2018 .Will add trajenda to achieve better DM controll. Has enough metformin and glimepirid e and other medication s refilled. He has annual eye ex. Coronary atherosclerosis 193210191 I25.10 Three stents, under the care of his cardiologi st. Osteoarthr itis of knee 754720324 M17.0 Asking for the [employer] parking card. Will sign in the near future. Chronic low back pain 27 8902819 M54.5 On physical therapy for about one month and on gabapentin 300 mg, three times/day along with baclofen 10 mg three times /day. Benign pro static hyperplasia 534773968 N40.0 [id number] Nghia Ag MD [facility] (Adult Med) [address] [place] [address] [id number] 0 05/11/2018 10:26:05 05/11/2018 12:19:31 Diabetes mellitus 41232532 E11.65 E13.65 diabetic diet. On tradjenta and glimepirid e. CMP, HgA1C and lipid panel in December 2016 were within the target ranges., encourage to be physically active.Jose graff refer to ophthalmol ogist for retina evaluation . Generalize d osteoarthritis 890494944 M15.9 Chronic low back pain 27 5719270 M54.5 On physical therapy for about one month and on gabapentin 300 mg, three times/day along with baclofen 10 mg three times /day. He is advised to call his insurance for the cover of pump device, Administra tion of influenza vaccine 73532707 Z23 Routine questions been asked before the shot, he tolerated the shot well. Benign pro static hyperplasia 963202955 N40.0 Type 2 anu betes mellitus without complication 010590844 E11.9 Postprandi al blood sugar today 02-08-2018 is 233 mg%. his fasting blood sugar was 171 mg% on 02-06-2018 .Will add trajenda to achieve better DM controll. Has enough metformin and glimepirid e and other medication s refilled. He has annual eye ex. Type 2 anu betes mellitus 97864751 E11.40 Diabetic diet,and annual ophthalmol ogist check up is recommende d. Essential hypertension 11397017 I10 On clonidine and lisinopril , he has not taken tody yet. Obesity 438037151 E66.9 Diabetic diet. Exercise, willing to try pills. [id number] Nghia Ag MD [facility] (Adult Med) [address] [place] [address] [id number] 09/08/2018 09:46:39 09/11/2018 10:28:07 Diabetes mellitus 88306035 E11.65 E13.65 diabetic diet. On tradjenta and glimepirid e. CMP, HgA1C and lipid panel in December 2016 were within the target ranges., encourage to be physically active.Jose l refer to ophthalmol ogist for retina evaluation . Skin lesion 10148796 L98 .9 Coronary atherosclerosis 311774244 I25.10 Three stents, under the care of his cardiologi . Type 2 anu betes mellitus 97724414 E11.40 Diabetic diet,and annual ophthalmol ogist check up is recommende d. Generalize d osteoarthritis 322191596 M15.9 [id number] Nghia Ag MD [facility] (Adult Med) [address] [place] [address] [id number] 12/08/2018 10:26:17 12/08/2018 11:49:23 Essential hypertension 52041896 I10 On clonidine and lisinopril , he has not taken tody yet. On carvedilol , losartan, isosorbide and clonidine. Sickle cell trait 165332 00 D57.3 Stable. Chronic low back pain 27 4035446 M54.5 On physical therapy for about one month and on gabapentin 300 mg, three times/day along with baclofen 10 mg three times /day. He is advised to call his insurance for the cover of pump device, Pain in left knee 225843 4367 03083 M25.562 On baclofen. Will D/c baclofen due to drowsiness . Pain in right knee 29381 83641 15652 M25.561 On baclofen. Will d?c baclofen due to possible drowsiness . Obesity 110092587 E66.9 Diabetic diet. Exercise, willing to try pills. Due to drowsiness , will stop naltrexone and wellbutrin . Coronary atherosclerosis 864831060 I25.10 Three stents, under the care of his cardiologi st. Diabetes mellitus 406951 09 E11.65 E13.65 diabetic diet. On tradjenta and glimepirid e. CMP, HgA1C and lipid panel in December 2016 were within the target ranges., encourage to be physically active.Jose prerna refer to ophthalmol ogist for retina evaluation . Type 2 anu betes mellitus 30333735 E11.40 Diabetic diet,and annual ophthalmol ogist check up is recommende d. Gets drowsiness [id number] 0 R40.0 Reviewed the lists of medication s, advised him to stop cyclobenza prin, baclofen and wellbutrin to avoid being drowsiness . Type 2 anu betes mellitus without complication 340356091 E11.9 Postprandi al blood sugar today 02-08-2018 is 233 mg%. his fasting blood sugar was 171 mg% on 02-06-2018 .Will add trajenda to achieve better DM controll. Has enough metformin and glimepirid e and other medication s refilled. He has annual eye ex. Generalize d osteoarthritis 549551489 M15.9 Stable. Benign pro static hyperplasia 843049082 N40.0 Stable. Vitamin D deficiency 347 00233 E55.9 [id number] Nghia Ag MD [facility] (Adult Med) [address] [place] [address] [phone] 0 03/22/2019 11:47:23 03/23/2019 09:17:59 Diabetes mellitus 23729487 E11.65 E13.65 diabetic diet. On tradjenta and glimepirid e. CMP, HgA1C and lipid panel in December 2016 were within the target ranges., encourage to be physically active.Jose prerna refer to ophthalmol ogist for retina evaluation . Essential hypertension 48638016 I10 On clonidine and lisinopril , he has not taken tody yet. On carvedilol , losartan, isosorbide and clonidine. Discussed with patient , will resume his old BP medication at home while waiting, advised to [facility]. Lumbar radiculopathy 128 569688 M54.16 Discussed with patient. [id number] Nghia Ag MD [facility] (Adult Med) [address] [place] [address] [phone] 0 09/27/2019 15:05:21 09/28/2019 12:17:07 Chronic low back pain 725843159 M54.5 Lumbar radiculopathy 128 771152 M54.16 Essential hypertension 80315126 I10 Obesity 858611625 E66.9 [id number] MD Jonelle Frost (Adult Med) [address] [place] [address] [phone] 0 12/04/2019 08:04:00 12/04/2019 13:16:25 Lumbar radiculopathy 438693772 M54.16 Discussed with patient. He was told that this drug store will be closed up to 6 pm tomorrow 12-05-2019 for good. [id number] MD Jonelle Frost (Adult Med) [address] [place] [address] [phone] 0 12/04/2019 11:15:52 12/06/2019 15:30:40 Lumbar radiculopathy 134221053 M54.16 Discussed with patient. [id number] MD Jonelle Frost (Adult Med) [address] [place] [address] [phone] 0 06/17/2020 08:18:11 06/18/2020 10:34:58 Lumbar radiculopathy 422326614 M54.16 Discussed with patient. Coronary atherosclerosis 796224008 I25.10 Three stents, under the care of his cardiologi st. Davon noel stedt recently. [id number] MD Jonelle Frost (Adult Med) [address] [place] [address] [phone] 0 08/06/2020 08:29:27 08/07/2020 10:06:55 Acute respiratory infections 726844233 J22 Discussed with patient, he agreed for the empirical antibiotic s. Generalize d osteoarthritis 762516119 M15.9 Stable. Type 2 anu betes mellitus 07853565 E11.40 Diabetic diet,and annual ophthalmol ogist check up is recommende d. on glimepirid e and metformin. Benign pro static hyperplasia 353838578 N40.0 Stable. On tamsulosin . [id number] MD Jonelle Frost (Adult Med) [address] [place] [address] [phone] 0 02/05/2021 10:13:56 02/05/2021 11:42:25 Essential hypertension 42281901 I10 On clonidine and lisinopril , he has not taken today yet. On carvedilol , losartan, isosorbide and clonidine. Discussed with patient , will resume his old BP medication at home while waiting, advised to [facility]. Type 2 anu leydi mellitus 96354364 E11.40 Diabetic diet,and annual ophthalmol ogist check up is recommende d. on glimepirid e and metformin. Benign pro static hyperplasia 250753510 N40.0 Stable. On tamsulosin . Chronic low back pain 27 7186852 M54.5 On physical therapy for about one month and on gabapentin 300 mg, three times/day along with baclofen 10 mg three times /day. He is advised to call his insurance for the cover of pump device, Hard to turn, bend over all the way or squatting down, negative SLRT. but stiff. Bilateral knee pain 1187 191760 4088389 M25.561 M25.562 Will x ray and orthopedic referral. Morbid obesity 632586183 E66.01 Diet, exercise and lose weight. [id number] Nghia Ag MD [facility] (Adult Med) [address] [place] [address] [phone] 0 03/17/2021 10:51:15 03/18/2021 08:39:39 Bilateral knee pain 2115265783 2373856 M25.561 M25.562 Will x ray and orthopedic referral. [facility] 964536125 R22.32 Left shoulder , about 5 by 6 cm in size , soft, movable, subcutaneo us mass, no pain, he is not sure if it has grown bigger, he dose not want to be intervened at this time. Near by the deltoid , normal range of left shoulder joint. Coronary atherosclerosis 005922916 I25.10 Three stents, under the care of his cardiologi . One more stent recently. Diabetes mellitus 393443 09 E11.65 E13.65 diabetic diet. On tradjenta and glimepirid e. CMP, HgA1C and lipid panel in December 2016 were within the target ranges., encourage to be physically active.Jose graff refer to ophthalmol ogist for retina evaluation . Chronic low back pain 27 4056901 M54.5 On physical therapy for about one month and on gabapentin 300 mg, three times/day along with baclofen 10 mg three times /day. He is advised to call his insurance for the cover of pump device, Hard to turn, bend over all the way or squatting down, negative SLRT. but stiff. Obesity 357446575 E66.9 Diabetic diet. Exercise, willing to try pills. Due to drowsiness , will stop naltrexone and wellbutrin . Sickle cell trait 086873 00 D57.3 Stable. [id number] MD Jonelle Frost (Adult Med) [address] [place] [address] [phone] 0 08/10/2021 14:06:00 08/11/2021 12:52:12 History of cerebrovascular accident 349584265 Z86.73 Since May 2021. Right hemiparesis 849118 009 G81.90 On wheelchair . Will continue PT /OT at [facility] in [facility]. 3 times/week . Type 2 anu betes mellitus 06588406 E11.40 Diabetic diet,and annual ophthalmol ogist check up is recommende d. on glimepirid e and metformin. Has enough metformin. Hypertensive disorder 38 331570 I10 Low salt diet. Blood pressure is 110 /74 mm HG today - 2. Dyslipidem ia due to type 2 diabetes mellitus 0960808650 02 E78.5 Diet, exercise and lose weight. Low saturated fat anf low animal fat diet. Seizure disorder 5614264 02 G40.909 On keppra, has enough med. Benign pro static hyperplasia 348732689 N40.0 Stable. On tamsulosin . [id number] MD Jonelle Frost (Adult Med) [address] [place] [address] [phone] 0 09/30/2021 10:09:01 10/01/2021 11:35:15 Chronic low back pain 522465021 M54.50 Failed to respons to PT since July 2021, more than 6 weeks. walks with walker. is here. Previous lumbar x ray reported L4-5 arthritis. Wants to be referred to pain management , but needs MRI first. [id number] MD Jonelle Frost (Adult Med) [address] [place] [address] [phone] 0 12/31/2021 16:32:46 01/01/2022 14:36:44 Lumbar radiculopathy 208704327 M54.16 Discussed with patient. Copy of lumbar MRI report provided to patient and . He is going to pain manage ment clinic. Pain of bi lateral knee regions 2588727278 50064 M25.561 M25.562 Wants x ray and pain management referral. Benign pro static hyperplasia 586801349 N40.0 Stable. On tamsulosin . Chronic ce ntral post-stroke pain 546303575 G89.0 Will trymed, avoid narcotic, he agreed to try. Diabetes mellitus 433143 09 E11.65 E13.65 diabetic diet. On tradjenta and glimepirid e. CMP, HgA1C and lipid panel in December 2016 were within the target ranges., encourage to be physically active.Jose graff refer to ophthalmol ogist for retina evaluation . [id number] Nghia Ag MD [facility] (Adult Med) [address] [place] [address] [phone] 0 04/28/2022 09:47:24 04/29/2022 16:19:08 Diabetes mellitus 81993099 E11.65 E13.65 diabetic diet. On tradjenta and glimepirid e. CMP, HgA1C and lipid panel in December 2016 were within the target ranges., encourage to be physically active.Jose graff refer to ophthalmol ogist for retina evaluation .He was told that he is no longer the type 2 DM. when he was in hospital. as 04-28-2022 . Right hemiparesis 091238 009 G81.90 On wheelchair . Will continue PT /OT at [facility]. 3 times/week . Unsteady gaits., wants walker, Hypertensive disorder 38 124923 I10 Low salt diet. Blood pressure is 110 /74 mm HG today 2. As 04-28-2022 . Blood pressure is 130/82, will refill med. 3 months as he asks. Dyslipidemia 908481057 E 78.5 Low saturated fat diet. Coronary atherosclerosis 046444173 I25.10 Three stents, under the care of his cardiologi st. One more stent recently. History of cerebrovascular accident 999893784 Z86.73 Since May 2021. Chronic low back pain 27 6708981 M54.50 Failed to respons to PT since July 2021, more than 6 weeks. walks with walker. is here. Previous lumbar x ray reported L4-5 arthritis. Wants to be referred to pain management , but needs MRI first. [id number] [facility] [address] [place] [address] [phone] 0 08/20/2022 15:44:40 08/23/2022 16:53:15 Right hemiparesis 911316412 G81.90 On wheelchair . Will continue PT /OT at [facility]. 3 times/week . Unsteady gaits., wants walker, Pain in right arm 539553 004 M79.601 probably due to central pain after the CVA, going to Pain management [facility] er screening declined 6611278694 9109 Z53.20 Refused 08/20/22. [id number] [facility] [address] [place] [address] [phone] 0 11/04/2022 14:15:06 11/08/2022 10:55:03 Obesity 930649576 E66.9 Diabetic diet. Exercise, willing to try pills. Due to drowsiness , will stop naltrexone and wellbutrin . CVA - cere brovascular accident due to cerebral artery occlusion 834537251 I63.50 Since 2020. Hemiplegia and/or hemiparesis following stroke 5036982123 9107 I69.359 Uses cane for walking, right-hand ed , he is right-hand ed. He hope to be independen tly to take his activities of daily living [id number] MD Jonelle Frost (Adult Med) [address] [place] [address] [phone] 02/01/2023 11:12:37 02/04/2023 21:55:59 CVA - cerebrovascular accident due to cerebral artery occlusion 626585828 I63.50 Since 2020. Right hemiparesis 526975 009 G81.90 On wheelchair . Will continue PT /OT at [facility]. 3 times/week . Unsteady gaits., wants walker, Chronic ce ntral post-stroke pain 112260381 G89.0 Will try med, avoid narcotic, he agreed to try. Hyperglycemia 24381768 R 73.9 Today Ac is 5.2 %, he is informed, he is not sugar diabetic. Overweight 759678894 E66 .3 Today 02-01-23, BMI is down from 31.7 to 30.5. diet, exercise and keep the weight down. [id number] MD Jonelle Frost (Adult Med) [address] [place] [address] [phone] 0 04/11/2023 15:48:03 04/12/2023 12:41:57 Benign prostatic hyperplasia 563571448 N40.0 Stable. On tamsulosin . Will check PSA today, will add finasterid e, but monitor PSA. He agreed. History of cerebrovascular accident 735067404 Z86.73 Since May 2021. Right hemiparesis 342209 009 G81.90 On wheelchair . Will continue PT /OT at [facility]. 3 times/week . Unsteady gaits., wants walker, brace from ankle to knee high. Hyperglycemia 10806322 R 73.9 Today Ac is 5.2 %, he is informed, he is not sugar diabetic. Chronic ce ntral post-stroke pain 180140972 G89.0 Will try med, avoid narcotic, he agreed to try. [facility] er screening declined 4727423093 9109 Z53.20 Refused 08/20/22. He declined 04-11-23. Influenza vaccination declined 391160783 Z28.21 He declined 04-11-23. [id number] MD Jonelle Frost (Adult Med) [address] [place] [address] [phone] 0 05/09/2023 16:19:27 05/10/2023 12:35:06 CVA - cerebrovascular accident due to cerebral artery occlusion 618920158 I63.50 Since 2020. Right hemiparesis 922844 009 G81.90 On wheelchair . Will continue PT /OT at [facility]. 3 times/week . Unsteady gaits., wants walker, brace from ankle to knee high. Chronic ce ntral post-stroke pain 980311871 G89.0 Will try med, avoid narcotic, he agreed to try. Type 2 anu betes mellitus 79892519 E11.40 Diabetic diet,and annual ophthalmol ogist check up is recommende d. on glimepirid e and metformin. Has enough metformin. Pain of ri ght hip joint 8233604868 06424 M25.551 He agreed for the X ray and orthopedic referral. Pain of ri ght knee joint 4949734519 86067 M25.561 He AGREED FOR X RAY AND ORTHOIPEDI C REFERRAL. Seizure disorder 7758941 02 G40.909 On keppra, has enough med. Dyslipidemia 038026226 E 78.5 Low saturated fat diet. Has enough atorvastat in. History of cerebrovascular accident 260711763 Z86.73 Since May 2021. Colon can er screening declined 7718352609 9109 Z53.20 Refused 08/20/22. He declined 04-11-23. He declined 05-09-23, Influenza vaccination declined 570082824 Z28.21 He declined 04-11-23. He declined 05-09-23. Pain of ri ght shoulder joint 2984116855 2938889 M25.511 He agreed for the x ray and orthopedic referral. [id number] Nghia Ag MD [facility] (Adult Med) [address] [place] [address] [phone] 0 07/12/2023 15:09:30 07/14/2023 11:50:35 Chronic central post-stroke pain 063990577 G89.0 Will try med, avoid narcotic, he agreed to try. Chronic back pain 797701 002 G89.29 On baclofen. CVA - cere brovascular accident due to cerebral artery occlusion 772880652 I63.50 Since 2020. Right hemiparesis 549935 009 G81.90 On wheelchair . Will continue PT /OT at [facility] in [facility]. 3 times/week . Unsteady gaits., wants walker, brace from ankle to knee high. Colon canc er screening declined 8791517440 9109 Z53.20 Refused 08/20/22. He declined 04-11-23. He declined 05-09-23, Obesity 303117186 E66.9 Diabetic diet. Exercise, willing to try pills. Due to drowsiness , will stop naltrexone and wellbutrin . BMI is 30.9 today 07-12-23. [id number] MD Jonelle Frost (Adult Med) [address] [place] [address] [phone] 0 09/02/2023 11:52:13 09/06/2023 11:24:07 Right hemiparesis 398170335 G81.90 On wheelchair . Will continue PT /OT at [facility]. 3 times/week . Unsteady gaits., wants walker, brace from ankle to knee high. Lower urin maia tract symptoms due to benign prostatic hypertrophy 0926543261 9101 N40.1 He agreed fi=or the referral. CVA - cere brovascular accident due to cerebral artery occlusion 174490118 I63.50 Since 2020. Seizure disorder 3120364 02 G40.909 On keppra, has enough med. [id number] MD Jonelle Johnson (Adult Med) [address] [place] [address] [phone] 0 10/17/2023 12:12:10 11/04/2023 13:08:06 General examination of patient 725535108 Z00.01 Chronic pain 43159934 G8 9.29 Hemiparesi s as late effect of cerebrovascular accident 285645118 I69.359 Diabetes mellitus 880783 09 E11.65 E13.65 HBA1C 8.3% on 05/09/2023 HBA1C 7.9% on 02/06/2018 Benign ess ential hypertension 9213774 I10 Screening for malignant neoplasm of colon 199605429 Z12.11 Colon canc er screening declined 2895779468 9109 Z53.20 [id number] MD Jonelle Johnson (Adult Med) [address] [place] [address] [phone] 0 12/16/2023 12:14:50 12/19/2023 12:08:00 Benign essential hypertension 0144286 I10 Uncontroll ed and worse than on his last visit. It is unclear if his pain is playing a role. Hemiparesi s as late effect of cerebrovascular accident 026923983 I69.359 He is not taking his Plavix.See the note from the patient case from 09/27/2023 [id number] MD Jonelle Johnson (Adult Med) [address] [place] [address] [phone] 0 02/10/2024 10:48:37 02/11/2024 10:16:33 Benign essential hypertension 9781822 I10 Uncontroll edHydralaz ine TIDContinu e Carvedilol OV 12/16/2023U ncontrolle d and worse than on his last visit. It is unclear if his pain is playing a role. Diabetes mellitus 487857 09 E11.65 E13.65 HBA1C 6.8% on 10/18/2023H BA1C 8.3% on 05/09/2023 HBA1C 7.9% on 02/06/2018 Screening for malignant neoplasm of colon 569848800 Z12.11 Constipation 69290864 K5 9.00 Worsened by the TramadolSt ool softener PRN [id number] Catrachito Yanez MD [facility] (Adult Med) [address] [place] [address] [phone] 0 11/16/2024 15:28:56 11/20/2024 10:31:47 Hammer toe 170795310 M20.41 Pain of hip region 93526 002 M25.551 Right lowe r quadrant pain 899357809 R10.31 Health Concerns Section Related Observation LastModified by Organization Detai ls LastModified Time None Recorded Concern Status LastModified by Organization Details LastModified Time None Recorded Advance Directives Directive N: Payers Encounter Date Sequence Insurance Name Policy Number Policy Doyle Covered Member ID Doyle Member ID Guarantor Name 09/02/[address] [facility] (MEDICARE REPLACEMENT/A DVANTAGE - HMO) [id number] Arnlufo Rod [id number] Arnulfo Rod 10/17/[address] [facility] (MEDICARE REPLACEMENT/A DVANTAGE - HMO) [id number] Arnulfo Rod [id number] Arnulfo Rod 12/16/[address] [facility] (MEDICARE REPLACEMENT/A DVANTAGE - HMO) [id number] Arnulfo Rod [id number] Arnulfo Rod 02/10/[address] [facility] (MEDICARE REPLACEMENT/A DVANTAGE - HMO) [id number] Arnulfo Rod [id number] Arnulfo Rod 11/16/[address] [facility] (MEDICARE REPLACEMENT/A DVANTAGE - HMO) [id number] Arnulfo Rod [id number] Arnulfo Rod Notes Date Note Type Note Provider Name and Address Organization Details Recorded Time 09/02/2023 text/html Office visit, FLORENTIN POPE. C/C right shoulder opain on the old right hemiparesis, gabapentin not working , and too sleepy. also urinating a lot, not on any diuretic. No other complaints. ROS as noted in HPI. Nghia Ag MD Attn: Accounting, [facility], [place], [address], [facility] 09/02/2023 14:34:53 10/17/2023 text/html Back PainReporte d bypatient.Context:prio r back problems The history is from the patient and the EHR It is my time to come inPain in my arm, my leg and my backI need to go back to therapy 68 y/o BM who was last seen by a different provider. He is here today without his medications and unfortunately, he cannot remember their names. His systems tester had called on 09/27/2023 about their unfamiliarity with his Clopidogrel, his chart suggests that this is one of his regular medications. PMHX. HTN, DM, Seizure d/o, CVA with right sided weakness, MSK pain, CAD and SCT He complains of a limited ROM in his right shoulder, he had in the past seen the orthopedic surgeon and the pain management provider. Catrachito Yanez MD Attn: Accounting, [place], [address], [facility] 10/17/2023 18:22:54 12/16/2023 text/html Hypertension F/UReported bypatient.Associated Symptoms:no dizziness; no lightheadedness; no chest pain; no shortness of breath; no palpitations; no edema; no calf pain with exertion Lifestyle:regular exercise; limiting/avoiding salt Medications:taking medications as directed; no side effects from medication You told me to come inEverything on my right side Mr Rod returns with his medications, he is going to be seen by the pain management provider today. Catrachito Yanez MD Attn: Accounting,[address] [facility], [place], [address], [facility] 12/16/2023 14:57:00 02/10/2024 text/html Diabetes F/URepo rted bypatient.Labs:last A1C result: 6.8% Context:normal range of home blood sugars (in the low 100s); seeing eye doctor regularly; checking feet regularly Associated Symptoms:no weight gain; no weight loss; no dizziness; no sweats; no headaches; no confusion; no increased thirst; no increased appetite; no increased urination; no blurred vision; no numbness of feet; no calluses on feetHypertension F/UReported bypatient.Associated Symptoms:no dizziness; no lightheadedness; no chest pain; no shortness of breath; no palpitations; no edema; no calf pain with exertion Lifestyle:regular exercise; limiting/avoiding salt Medications:no side effects from medication;not taking medications as directed Hurting, I lost all the paperwork you gave me last timeYou told me to come inI don't like smelling shit Mr Rod takes his Hydralazine twice a day instead of three times a day, he is not keen on processing the Cologuard sample. Catrachito Yanez MD Attn: Accounting,[address] [facility], [place], [address], [facility] 02/10/2024 12:07:59 11/16/2024 text/html Abdominal PainRe ported bypatient.Location:RLQ Quality:pain Severity:moderate Duration:cannot identify Onset/Timing:worse Modifying Factors:nothing gives relief; nothing makes it worse; moving bowels; urinating Associated Symptoms:no fever; no chills; no blood in the urine; no heartburn; no shortness of breath Other:denies possible pregnancyHip(s)Reporte d bypatient.Location:rig ht Quality:aching Severity:mild Duration:years Timing:chronic Context:cannot identify Alleviating Factors:nothing helps Aggravating Factors:cannot identify Associated Symptoms:no weakness; no numbness; no tingling; no swelling; no redness; no warmth; no ecchymosis; no catching/locking; no popping/clicking; no buckling; no grinding; no instability; no radiation down leg; no drainage; no fever; no chills; no weight loss; no change in bowel/bladder habits Previous Surgery:none Prior Imaging:x ray; CT scan Previous Injections:none Working:no There was no electricity and I therefore had no access to the chart when the patient was seen. My sideMy toeCan you give me some Prostate medicine? Mr Rod complains of chronic pain around his right lower quadrant and hip. He describes it as his side. The pain started after his stroke and does not radiate. He denies any GI symptoms but he complains of urinary frequency and pain around the base of the 2nd toe of the right foot Catrachito Yanez MD Attn: Accounting,[address] [facility], [place], [address], [facility] 11/16/2024 20:56:33
--- OUTSIDE RECORDS SUMMARY | 2024-12-03 09:42 | XMS_ITS | Clinical Summary ---
Author Organization [facility] Address [address] [place] [address] Care Team Providers Care Hog Tender Name Role Phone Nghia Ag MD Primary Care Provider [phone] Allergies Active Allergy Reactions Criticality Noted Date Comments Furosemide Nausea Only 02/11/2021 Medications acetaminophen (TYLENOL) 325 MG tablet Take 2 tablets (650 mg total) by mouth every 4 (four) hours as needed for mild pain. 0 06/18/2021 Active clopidogrel (PLAVIX) 75 MG tablet Take 1 tablet (75 mg total) by mouth daily. 30 tablet 06/19/2021 Active lidocaine (LIDOCARE) 4 % patch patch Place 2 patches on the skin daily. 30 patch 06/19/2021 Active simethicone (MYLICON) 80 MG chewable tablet Chew 1 tablet (80 mg total) 4 (four) times a day as needed for flatulence. 0 06/19/2021 Active Active Problems Problem Noted Date Diagnosed Date Debility 06/01/2021 Cerebrovascular accident 05/27/2021 Chest pain 10/02/2015 Coronary arteriosclerosis 10/02/2015 Diabetes mellitus 10/02/2015 Hyperlipidemia 10/02/2015 Obesity 10/02/2015 Family History Medical History Relation Name Comments Cancer Father Hypertension Father Hypertension Mother Stroke Mother Relation Name Status Comments Father Mother Social History Tobacco Use Types Packs/Day Years Used Date Smoking Tobacco: Never Smokeless Tobacco: Never Alcohol Use Standard Drinks/Week Comments Never 0 (1 standard drink = 0.6 oz pur e alcohol) Sex and Gender Information Value Date Recorded Sex Assigned at Not on file Legal Sex Male 3:58 PM EST Gender Identity Not on file Sexual Orientation Not on file Last Filed Vital Signs Vital Sign Reading Time Taken Comments Blood Pressure 121/75 06/18/2021 1:44 PM E[employer]RICAL APPRENTICE Pulse 96 06/18/2021 8:09 AM ELECTRICAL APPRENTICE Temperature 36.8 C (98.3 F) 06/18/2021 8:09 AM ELECTRICAL APPRENTICE Respiratory Rate 18 06/18/2021 8:09 AM ELECTRICAL APPRENTICE Oxygen Saturation 94% 06/18/2021 8:09 AM ELECTRICAL APPRENTICE Inhaled Oxygen Concentration - - Weight 101.2 kg (223 lb) 06/13/2021 8:37 PM ELECTRICAL APPRENTICE Height 175.3 cm (5' 9) 06/01/2021 10:08 PM ELECTRICAL APPRENTICE Body Mass Index 32.93 06/01/2021 10:08 PM ELECTRICAL APPRENTICE Plan of Treatment Not on file Advance Directives * Full Resuscitation (Latest Code Status on File) Date Activated Date Inactivated Comments 06/01/2021 6:34 PM 06/18/2021 5:31 PM Care Teams Hog Tender Relationship Specialty Start Date End Date Nghia Ag MD [address] [place] [phone] PCP - General 06/01/21
--- OUTSIDE RECORDS SUMMARY | 2024-12-03 09:42 | XMS_ITS | CONTINUITY OF CARE DOCUMENT ---
Author Name jake joseph Address Unknown Organization [facility] Address [address] [place] [address] Phone [phone] Care Team Providers Care Marine Welder Name Role Phone Tito Nettles MD Unavailable [phone] DRAKE CORTEZ, FLORENTINO Unavailable [phone] DRAKE CORTEZ, FLORENTINO Unavailable [phone] PROBLEMS Condition Status Date Provider Notes Vitamin D deficiency active Jim Ku Obesity active Jim Lauren MD CAD active Jim Lauren MD Diabetes mellitus active Jim Lauren MD AMI, subendocardial active Jim Lauren MD HTN essential active Jim Lauren MD FAMILY HISTORY OF HEART DISEASE active Brenda Lauren MD Hypertriglyceridemia active Jim Ku Hyperlipidemia active Willow Chan RN Anemia active Jim Lauren MD Sleep apnea, obstructive, severe active Elsa Soni BPH active Ramón Jeffries MD Elevated PSA active Tito Nettles MD Shortness of breath active Tito Nettles MD Microalbuminuria active Tito Nettles MD CHF - diastolic active Tito Nettles MD Right renal artery stenosis S/P stent 06/2020 active Aaron Soni Abnormal EKG active Aaron Soni Cardiology examination active 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 C V A / Stroke active Alana Conde NP (Hi story of) ENCOUNTERS Date Type Provider Location Encounter Diag nosis 08/06 - 08/06 In-person encounter Office Visit Tito Nettles MD [facility] Office 05/07 - 05/09 In-person encounter Office Visit Tito Nettles MD [facility] Cardiology examinationC V A / Stroke 02/11 - 02/11 In-person encounter Office Visit Tito Nettles MD [facility] 09/17 - 09/25 In-person encounter Office Visit Tito Nettles MD [facility] 08/04 - 08/07 In-person encounter Office Visit Tito Nettles MD [facility] Right renal artery stenosis S/P stent 06/2020Abnormal EKG 09/30 - 10/01 In-person encounter Office Visit Tito Nettles MD [facility] CHF - diastolic 03/07 - 03/08 In-person encounter Office Visit Tito Nettles MD [facility] 07/10 - 07/10 In-person encounter Office Visit Tito Nettles MD [facility] Elevated PSA 06/01 - 06/03 In-person encounter Office Visit Tito Nettles MD [facility] Microalbuminuria 04/04 - 04/13 In-person encounter Office Visit Tito Nettles MD [facility] Sleep apnea, obstructive, severeShortnes s of breath 04/08 - 04/14 In-person encounter Office Visit Ramón Jeffries MD [facility] Elevated PSA 01/07 - 01/15 In-person encounter Office Visit Ramón Jeffries MD [facility] 10/08 - 10/19 In-person encounter Office Visit Ramón Jeffries MD [facility] BPH 10/01 - 10/01 In-person encounter Office Visit Jim Lauren MD [facility] ObesityCADDiabetes mellitusAMI, subendoc ardialHTN essentialFAMILY HISTORY OF HEART DISEASEHypertriglyceridemiaHyperlipidemiaAnemiaSleep apnea, obstructive, severe VITAL SIGNS Date Observation Value Provider Body Mass Index (Ratio) 29.97 kg/m2 Tito Nettles MD pulse rate 69 /min Kristie Cummings s oxygen saturation, oximetry 97 % Kristie Cummingss blood pressure, cuff size regular Br judy Cummingss blood pressure, diastolic 98 mm[Hg] Br judy Guzmán blood pressure, systolic 150 mm[Hg] Janet Cummingss weight E&M 203 [lb_av] Kristie Cummings s height E&M 69 [in_i] Kristie Cmumings s Body Mass Index (Ratio) 29.77 kg/m2 Ad Abarcamelanie CASTILLO blood pressure, diastolic 94 mm[Hg] Justin boon Henderson blood pressure, systolic 162 mm[Hg] Subha josé Henderson pulse rate 60 /min Justinmclaren thumb regionn Henderson oxygen saturation, oximetry 98 % Justinmclaren thumb regionn [place] weight E&M 201.6 [lb_av] Justinmclaren thumb regionn Henderson blood pressure, cuff size regular Justin alan Henderson height E&M 69 [in_i] Justinmclaren thumb regionn Henderson Body Mass Index (Ratio) 34.55 kg/m2 Michell Ni blood pressure, cuff size large Ke rri Gruenenfelder blood pressure, diastolic 100 mm[Hg] Ke rri Gruenenfelder blood pressure, systolic 170 mm[Hg] Nicholas Sewell oxygen saturation, oximetry 97 % Noemy Sewell respiratory rate E&M 16 /min Noemy guzmán pulse rate 71 /min Noemy Brown lder weight E&M 234 [lb_av] Noemy Brown lder height E&M 69 [in_i] Noemy Brown [facility] Body Mass Index (Ratio) 34.11 kg/m2 Benigno Soni blood pressure, cuff size large Hugo Ha blood pressure, diastolic 112 mm[Hg] Hugo rri Leland blood pressure, systolic 212 mm[Hg] [facility] saturation, oximetry 94 % Noemy Sewell respiratory rate E&M 16 /min [facility] pulse rate 72 /min Noemy Brown [facility] weight E&M 231 [lb_av] Noemy Brown [facility] height E&M 69 [in_i] Noemy Brown [facility] Body Mass Index (Ratio) 36.03 kg/m2 Benigno Soni blood pressure, diastolic 76 mm[Hg] Kulwinder waddell Carrillo blood pressure, systolic 142 mm[Hg] Bernie harper Carrillo pulse rate 74 /min Carla Campbel l oxygen saturation, oximetry 96 % Carlaharper Carrillo blood pressure, cuff size regular Cy bairon Carrillo respiratory rate E&M 18 /min Carla Carrillo weight E&M 244 [lb_av] Carla Campbel l height E&M 69 [in_i] Carla Campbel l Body Mass Index (Ratio) 35.26 kg/m2 Benigno Soni blood pressure, cuff size regular Kr isty [place] blood pressure, diastolic 70 mm[Hg] Kr isty [place] blood pressure, systolic 140 mm[Hg] Kri sty [place] pulse rate 74 /min Estephania [place] oxygen saturation, oximetry 93 % Estephania Calabreseby respiratory rate E&M 17 /min Estephania [place] weight E&M 238.8 [lb_av] Aaron [facility] height E&M 69 [in_i] Estephania Calabreseby blood pressure, diastolic, left arm 98 mm [Hg] [facility] blood pressure, systolic, left arm 160 mm [Hg] [facility] blood pressure, diastolic, right arm 100 mm[Hg] [facility] blood pressure, systolic, right arm 156 m m[Hg] [facility] Body Mass Index (Ratio) 33.08 kg/m2 Benigno [facility] blood pressure, cuff size regular Cy jonathandarian Carrillo blood pressure, diastolic 98 mm[Hg] Kulwinder vargasni Gerardo blood pressure, systolic 160 mm[Hg] Bernie harper Gerardo oxygen saturation, oximetry 97 % Carla Carrillo respiratory rate E&M 16 /min Carla Carrillo pulse rate 91 /min Carla Kaye l weight E&M 224 [lb_av] Carla Marquezbel l height E&M 69 [in_i] Carla Marquezbel l Body Mass Index (Ratio) 33.96 kg/m2 Benigno duron Nae blood pressure, diastolic 90 mm[Hg] Da scottie Jose Elias blood pressure, systolic 144 mm[Hg] Dac ia Jose Elias oxygen saturation, oximetry 95 % Kalyn Jose Elias respiratory rate E&M 18 /min Kalyn V oss pulse rate 72 /min Kalyn Jose Elias weight E&M 230 [lb_av] Kalyn Jose Elias height E&M 69 [in_i] Kalyn Jose Elias Body Mass Index (Ratio) 34.99 kg/m2 Benigno Soni blood pressure, diastolic 83 mm[Hg] Jose Strauss blood pressure, systolic 151 mm[Hg] Crystal Strauss oxygen saturation, oximetry 95 % Tony Strauss respiratory rate E&M 18 /min Essence Strauss pulse rate 80 /min Tony parker weight E&M 237 [lb_av] Tony parker height E&M 69 [in_i] Tony Armando jossilvia Body Mass Index (Ratio) 34.40 kg/m2 Benigno Mcfaddenberg blood pressure, resting Yes Alysha Garcia blood pressure, cuff size large Dee Garcia blood pressure, diastolic 90 mm[Hg] Dee Garcia blood pressure, systolic 140 mm[Hg] Rome Garcia oxygen saturation, oximetry 97 % Emilia Garcia respiratory rate E&M 16 /min Emilia Garcia pulse rate 88 /min Emilia Garcia weight E&M 233 [lb_av] Emilia Garcia height E&M 69 [in_i] Emilia Garcia blood pressure, diastolic 106 mm[Hg] Hugo Sewell blood pressure, systolic 180 mm[Hg] Nicholas Sewell pulse rate 87 /min Noemy watson oxygen saturation, oximetry 96 % Noemy Sewell respiratory rate E&M 16 /min Noemy guzmán Body Mass Index (Ratio) 33.96 kg/m2 Stephenie Sewell weight E&M 230 [lb_av] Noemy bernarder blood pressure, diastolic 100 mm[Hg] Jose Strauss blood pressure, systolic 160 mm[Hg] Crystal Strauss pulse rate 79 /min Tony parker oxygen saturation, oximetry 97 % Tony Strauss respiratory rate E&M 18 /min Essence Strauss Body Mass Index (Ratio) 34.52 kg/m2 Willow Strauss weight E&M 233.8 [lb_av] Tony ervinsilvia blood pressure, diastolic 94 mm[Hg] Kristofer Nichols RN blood pressure, systolic 129 mm[Hg] Fernando Nichols RN blood pressure, diastolic 89 mm[Hg] Jose Strauss blood pressure, systolic 129 mm[Hg] Crystal Strauss pulse rate 74 /min Tony parker oxygen saturation, oximetry 97 % Tony Strauss respiratory rate E&M 16 /min Essence Strauss Body Mass Index (Ratio) 34.05 kg/m2 Willow Strauss weight E&M 230.6 [lb_av] Tony ross blood pressure, diastolic 78 mm[Hg] Jose Strauss blood pressure, systolic 114 mm[Hg] Crystal Strauss pulse rate 77 /min Tony parker oxygen saturation, oximetry 98 % Tony Strauss respiratory rate E&M 16 /min Essence Strauss Body Mass Index (Ratio) 33.67 kg/m2 Willow Strauss weight E&M 228 [lb_av] Tony parker height E&M 69 [in_i] Tony parker ALLERGIES Allergy Name Onset Date Reaction Criticality Status LASIX Nausea Nausea Low Criticality active RESULTS Date Observation Value Provider Reference Range Interpretation Location pro brain natriuretic peptide 1313 pg/mL [facility] 0-210 High calcium, serum 9.5 mg/dL [facility] 8.6-10.2 carbon dioxide, venous blood 26 mmol/L [facility] 20-29 chloride, serum 105 mmol/L [facility] 96-106 potassium, serum 4.4 mmol/L [facility] 3.5-5.2 sodium, serum 144 mmol/L [facility] 061-688 1037/02 /04 urea nitrogen/creatinine ratio, serum 12 [facility] 10-24 eGFR if 86 mL/min/{1.73_ m2} [facility] >59 eGFR if not 75 mL/min/{1.73_ m2} [facility] >59 creatinine, serum 1.05 mg/dL [facility] 0.76-1.27 urea nitrogen, blood 13 mg/dL [facility] 8-27 blood glucose, random 191 mg/dL [facility] 65-99 High basophil count, absolute 0.0 x10E3/uL [facility] 0.0-0.2 Eosinophil Absolute Count 0.1 X10E3/UL [facility] 0.0-0.4 monocyte count, blood, automated 0.4 X10E3/UL [facility] 0.1-0.9 lymphocyte count, blood, automated 1.6 X10E3/UL [facility] 0.7-3.1 Absolute Neutrophils 4.5 X10E3/UL [facility] 1.4-7.0 basophils as percent of blood leukocytes 1 % [facility] Not Estab. eosinophils as percent of blood leukocytes 2 % [facility] Not Estab. monocytes as percent of blood leukocytes 5 % [facility] Not Estab. lymphocytes as percent of blood leukocytes 25 % [facility] Not Estab. neutrophils as percent of blood leukocytes 67 % [facility] Not Estab. platelet count 231 X10E3/UL [facility] 488-290 3064/02 /04 red blood cell distribution width 15.6 % [facility] 11.6-15.4 High mean corpuscular hemoglobin concentration, RBC 32.2 G/DL [facility] 31.5-35.7 mean corpuscular hemoglobin, RBC 26.4 pg [facility] 26.6-33.0 Low mean corpuscular volume, RBC 82 fL [facility] 79-97 hematocrit, blood 29.8 % [facility] 37.[facility]-51.0 Low hemoglobin, blood 9.6 g/dL [facility] 13.0-17.7 Low erythrocyte (RBC) count 3.64 X10E6/UL [facility] 4.14-5.80 Low leukocyte count, blood 6.6 X10E3/UL [facility] 3.4-10.8 LDL cholesterol, serum 118 mg/dL [facility] LDL cholesterol, serum 136 mg/dL [facility] LDL cholesterol, serum 66 mg/dL [facility] prothrombin time (patient) 10.6 s [facility] 9.1-12.0 international normalized ratio (INR) 1.0 [facility] 0.8-1.2 lipoprotein, beta, serum, point, quantitative, calculated 66 mg/dL [facility] 0-99 very low density lipoproteins 20 mg/dL [facility] HDL cholesterol, serum 25 mg/dL [facility] >39 Low triglyceride, serum, random 102 mg/dL [facility] 0-149 cholesterol, serum 111 mg/dL [facility] [phone]/02 /27 calcium, serum 10.0 mg/dL [facility] 8.6-10.2 carbon dioxide, venous blood 27 mmol/L [facility] 18-29 chloride, serum 96 mmol/L [facility] 96-106 potassium, serum 4.8 mmol/L [facility] 3.5-5.2 sodium, serum 138 mmol/L [facility] [phone]/02 /27 urea nitrogen/creatinine ratio, serum 12 [facility] 10-24 eGFR if not 57 mL/min/{1.73_ m2} [facility] >59 Low creatinine, serum 1.34 mg/dL [facility] 0.76-1.27 High urea nitrogen, blood 16 mg/dL [facility] 8-27 blood glucose, random 368 mg/dL [facility] 65-99 High basophil count, absolute 0.0 x10E3/uL [facility] 0.0-0.2 Eosinophil Absolute Count 0.3 X10E3/UL [facility] 0.0-0.4 monocyte count, blood, automated 0.4 X10E3/UL [facility] 0.1-0.9 lymphocyte count, blood, automated 2.0 X10E3/UL [facility] 0.7-3.1 Absolute Neutrophils 3.8 X10E3/UL [facility] 1.4-7.0 basophils as percent of blood leukocytes 0 % [facility] Not Estab. eosinophils as percent of blood leukocytes 4 % [facility] Not Estab. monocytes as percent of blood leukocytes 6 % [facility] Not Estab. lymphocytes as percent of blood leukocytes 31 % [facility] Not Estab. neutrophils as percent of blood leukocytes 59 % [facility] Not Estab. platelet count 299 X10E3/UL [facility] 140-332 9621/02 /27 red blood cell distribution width 14.2 % [facility] 12.3-15.4 mean corpuscular hemoglobin concentration, RBC 31.8 G/DL [facility] 31.5-35.7 mean corpuscular hemoglobin, RBC 27.0 pg [facility] 26.6-33.0 mean corpuscular volume, RBC 85 fL [facility] 79-97 hematocrit, blood 33.6 % [facility] 37.5-51.0 Low hemoglobin, blood 10.7 g/dL [facility] 13.0-17.7 Low erythrocyte (RBC) count 3.97 X10E6/UL [facility] 4.14-5.80 Low leukocyte count, blood 6.5 X10E3/UL [facility] 3.4-10.8 prothrombin time (patient) 10.4 s [facility] 9.1-12.0 international normalized ratio (INR) 1.0 [facility] 0.8-1.2 lipoprotein, beta, serum, point, quantitative, calculated 65 mg/dL [facility] 0-99 very low density lipoproteins 18 mg/dL [facility] 5-40 HDL cholesterol, serum 28 mg/dL [facility] >39 Low triglyceride, serum, random 89 mg/dL [facility] 0-149 cholesterol, serum 111 mg/dL [facility] [phone]/11 /30 calcium, serum 9.7 mg/dL [facility] 8.6-10.2 carbon dioxide, venous blood 24 mmol/L [facility] 18-29 chloride, serum 99 mmol/L [facility] 96-106 potassium, serum 4.3 mmol/L [facility] 3.5-5.2 sodium, serum 140 mmol/L [facility] 184-591 6584/11 /30 urea nitrogen/creatinine ratio, serum 10 [facility] 10-24 eGFR if not 56 mL/min/{1.73_ m2} [facility] >59 Low creatinine, serum 1.35 mg/dL [facility] 0.76-1.27 High urea nitrogen, blood 14 mg/dL [facility] 8-27 blood glucose, random 287 mg/dL [facility] 65-99 High basophil count, absolute 0.0 x10E3/uL [facility] 0.0-0.2 Eosinophil Absolute Count 0.3 X10E3/UL [facility] 0.0-0.4 monocyte count, blood, automated 0.5 X10E3/UL [facility] 0.1-0.9 lymphocyte count, blood, automated 2.3 X10E3/UL [facility] 0.7-3.1 Absolute Neutrophils 4.9 X10E3/UL [facility] 1.4-7.0 basophils as percent of blood leukocytes 0 % [facility] Not Estab. eosinophils as percent of blood leukocytes 4 % [facility] Not Estab. monocytes as percent of blood leukocytes 6 % [facility] Not Estab. lymphocytes as percent of blood leukocytes 29 % [facility] Not Estab. neutrophils as percent of blood leukocytes 61 % [facility] Not Estab. platelet count 276 X10E3/UL [facility] [phone]/11 /30 red blood cell distribution width 14.0 % [facility] 12.3-15.4 mean corpuscular hemoglobin concentration, RBC 33.8 G/DL [facility] 31.5-35.7 mean corpuscular hemoglobin, RBC 27.0 pg [facility] 26.6-33.0 mean corpuscular volume, RBC 80 fL [facility] 79-97 hematocrit, blood 31.1 % [facility] 37.5-51.0 Low hemoglobin, blood 10.5 g/dL [facility] 12.6-17.7 Low erythrocyte (RBC) count 3.89 X10E6/UL [facility] 4.14-5.80 Low leukocyte count, blood 8.0 X10E3/UL [facility] 3.4-10.8 pro brain natriuretic peptide 99 pg/mL [facility] 0-450 albumin/creatinine ratio, urine 149 MG/G CREATININE [facility] 0-30 High creatinine, random, urine 158.32 (?) [facility] microalbumin, urine 236 [facility] 0-30 High prostate specific antigen 2.5 ng/mL [facility] 0.0 - 4.0 anion gap, serum 16.3 [facility] - albumin/globulin ratio, serum 2.3 g/dL [facility] 1.1 - 2.5 globulin, serum 3.5 [facility] 2.3 - 3.8 urea nitrogen/creatinine ratio, serum 12.7 [facility] - Estimated Glomerular Filtration Rate (calc) 72.8 (?) [facility] 59.0 - chloride, serum 101.7 mmol/L [facility] 98.0 - 107.0 potassium, serum 4.7 mmol/L [facility] 3.5 - 5.1 sodium, serum 143.0 mmol/L [facility] 136.0 - 145.0 creatinine, serum 1.1 mg/dL [facility] 0.7 - 1.2 carbon dioxide, venous blood 25.0 mmol/L [facility] 22.0 - 29.0 albumin, serum 4.2 g/dL [facility] 3.5 - 5.2 calcium, serum 9.8 mg/dL [facility] 8.6 - 10.2 aspartate aminotransferase (SGOT), serum 17.0 1/L [facility] 0.0 - 40.0 alkaline phosphatase, serum 65.0 1/L [facility] 40.0 - 130.0 alanine aminotransferase (SGPT), serum 25.0 1/L [facility] 0.0 - 41.0 protein, total, serum 7.7 g/dL [facility] 6.6 - 8.7 bilirubin, serum, total 0.3 mg/dL [facility] 0.0 - 1.2 urea nitrogen, blood 14.0 mg/dL [facility] 6.0 - 20.0 blood glucose, random 205.0 mg/dL [facility] 74.0 - 99.0 High red blood cell distribution width, size density 42.9 fL [facility] - immature granulocytes, percentage of total cells, blood 0.2 % [facility] - nucleated red blood cells as percent of blood leukocytes 0.0 % [facility] - red blood cell (erythrocyte) count, per high power field 0.0 10*3/UL [facility] - eosinophils as percent of blood leukocytes 1.8 % [facility] - neutrophils as percent of blood leukocytes 59.1 % [facility] - Absolute Neutrophils 3.8 CELLS/UL [facility] 1.5 - 7.8 basophils as percent of blood leukocytes 0.3 % [facility] - Absolute Basophils 0.0 CELLS/UL [facility] 0.0 - 0.2 monocytes as percent of blood leukocytes 4.9 % [facility] - Absolute Monocytes 0.3 CELLS/UL [facility] 0.2 - 1.0 lymphocytes as percent of blood leukocytes 33.7 % [facility] - Absolute Lymphocytes 2.2 CELLS/UL [facility] 0.9 - 3.9 mean platelet volume 9.7 (?) [facility] - platelet count 331.0 THOUSAND/UL [facility] 100.0 - 400.0 mean corpuscular hemoglobin concentration, RBC 31.5 G/DL [facility] 31.0 - 38.0 mean corpuscular hemoglobin, RBC 26.5 pg [facility] 25.0 - 35.0 mean corpuscular volume, RBC 84.2 fL [facility] 75.0 - 100.0 hematocrit, blood 34.0 % [facility] 35.0 - 55.0 Low hemoglobin, blood 10.7 g/dL [facility] 11.5 - 16.5 Low erythrocyte count, whole blood 4.0 MILLION/UL [facility] 3.5 - 5.5 reticulocyte count, absolute 0.052 10*6 CELLS/UL [facility] - reticulocyte count, blood, uncorrected 1.28 % [facility] 0.50 - 2.00 anion gap, serum 11.8 [facility] - albumin/globulin ratio, serum 2.5 g/dL [facility] 1.1 - 2.5 globulin, serum 3.1 [facility] 2.3 - 3.8 urea nitrogen/creatinine ratio, serum 11.0 [facility] - Estimated Glomerular Filtration Rate (calc) 81.3 (?) [facility] 59.0 - chloride, serum 103.2 mmol/L [facility] 98.0 - 107.0 potassium, serum 4.3 mmol/L [facility] 3.5 - 5.1 sodium, serum 143.0 mmol/L [facility] 136.0 - 145.0 creatinine, serum 1.0 mg/dL [facility] 0.7 - 1.2 carbon dioxide, venous blood 28.0 mmol/L [facility] 22.0 - 29.0 albumin, serum 4.3 g/dL [facility] 3.5 - 5.2 calcium, serum 9.9 mg/dL [facility] 8.6 - 10.2 aspartate aminotransferase (SGOT), serum 12.0 1/L [facility] 0.0 - 40.0 alkaline phosphatase, serum 64.0 1/L [facility] 40.0 - 130.0 alanine aminotransferase (SGPT), serum 14.0 1/L [facility] 0.0 - 41.0 protein, total, serum 7.4 g/dL [facility] 6.6 - 8.7 bilirubin, serum, total 0.4 mg/dL [facility] 0.0 - 1.2 urea nitrogen, blood 11.0 mg/dL [facility] 6.0 - 20.0 blood glucose, random 162.0 mg/dL [facility] 74.0 - 99.0 High red blood cell distribution width, size density 46.5 fL [facility] - immature granulocytes, percentage of total cells, blood 0.3 % [facility] nucleated red blood cells as percent of blood leukocytes 0.0 % [facility] - red blood cell (erythrocyte) count, per high power field 0.0 10*3/UL [facility] - eosinophils as percent of blood leukocytes 1.3 % [facility] - neutrophils as percent of blood leukocytes 67.7 % [facility] - Absolute Neutrophils 5.4 CELLS/UL [facility] 1.5 - 7.8 basophils as percent of blood leukocytes 0.3 % [facility] - Absolute Basophils 0.0 CELLS/UL [facility] 0.0 - 0.2 monocytes as percent of blood leukocytes 5.1 % [facility] - Absolute Monocytes 0.4 CELLS/UL [facility] 0.2 - 1.0 lymphocytes as percent of blood leukocytes 25.3 % [facility] - Absolute Lymphocytes 2.0 CELLS/UL [facility] 0.9 - 3.9 mean platelet volume 9.9 (?) [facility] - platelet count 294.0 THOUSAND/UL [facility] 100.0 - 400.0 mean corpuscular hemoglobin concentration, RBC 30.6 G/DL [facility] 31.0 - 38.0 Low mean corpuscular hemoglobin, RBC 25.1 pg [facility] 25.0 - 35.0 mean corpuscular volume, RBC 82.1 fL [facility] 75.0 - 100.0 hematocrit, blood 37.6 % [facility] 35.0 - 55.0 hemoglobin, blood 11.5 g/dL [facility] 11.5 - 16.5 erythrocyte count, whole blood 4.6 MILLION/UL [facility] 3.5 - 5.5 thyroid stimulating hormone, serum 1.350 ??IU/ML [facility] 0.270 - 4.200 prostate specific antigen 6.0 ng/mL [facility] 0.0 - 3.9 High red blood cell distribution width, size density 39.7 fL [facility] - immature granulocytes, percentage of total cells, blood 0.2 % [facility] - nucleated red blood cells as percent of blood leukocytes 0.0 % [facility] - red blood cell (erythrocyte) count, per high power field 0.0 10*3/UL [facility] - eosinophils as percent of blood leukocytes 2.2 % [facility] - neutrophils as percent of blood leukocytes 65.2 % [facility] - Absolute Neutrophils 4.1 CELLS/UL [facility] 1.5 - 7.8 basophils as percent of blood leukocytes 0.6 % [facility] - Absolute Basophils 0.0 CELLS/UL [facility] 0.0 - 0.2 monocytes as percent of blood leukocytes 5.7 % [facility] - Absolute Monocytes 0.4 CELLS/UL [facility] 0.2 - 1.0 lymphocytes as percent of blood leukocytes 26.1 % [facility] - Absolute Lymphocytes 1.6 CELLS/UL [facility] 0.9 - 3.9 mean platelet volume 9.2 (?) [facility] - platelet count 515.0 THOUSAND/UL [facility] 100.0 - 400.0 High mean corpuscular hemoglobin concentration, RBC 31.8 G/DL [facility] 31.0 - 38.0 mean corpuscular hemoglobin, RBC 27.4 pg [facility] 25.0 - 35.0 mean corpuscular volume, RBC 86.0 fL [facility] 75.0 - 100.0 hematocrit, blood 30.8 % [facility] 35.0 - 55.0 Low hemoglobin, blood 9.8 g/dL [facility] 11.5 - 16.5 Low erythrocyte count, whole blood 3.6 MILLION/UL [facility] 3.5 - 5.5 folate, serum 8.8 NG/MLM [facility] 4.4 - 31.0 vitamin b12, serum 461.1 pg/mL [facility] 211.0 - 946.0 free thyroxine index 8.7 ??g/dL [facility] 4.4 - 11.4 triiodothyronine uptake 1.0 TBI [facility] 0.8 - 1.3 thyroxine, serum, total 8.7 ??G/DL [facility] 4.5 - 11.7 thyroid stimulating hormone, serum 1.000 ??IU/ML [facility] 0.270 - 4.200 pro brain natriuretic peptide 99.5 pg/mL [facility] 0.0 - 125.0 very low density lipoproteins 19.0 mg/dL [facility] 5.0 - 40.0 LDL/HDL (low-density lipoprotein/high-de nsity lipoprotein) ratio 2.6 RATIO [facility] - lipoprotein, beta, serum, point, quantitative, calculated 51.0 (?) [facility] 0.0 - 100.0 HDL cholesterol, serum 20.0 mg/dL [facility] 35.0 - 55.0 Low cholesterol, serum 90.0 mg/dL [facility] 0.0 - 200.0 triglyceride, serum, fasting 95.0 mg/dL [facility] 0.0 - 150.0 ferritin, serum 496.3 ng/mL [facility] 30.0 - 400.0 High iron binding capacity, total 357.0 (?) [facility] - iron, serum 46.0 ug/dL [facility] 31.0 - 144.0 iron binding capacity, unsaturated 311.0 ??G/DL [facility] 112.0 - 347.0 anion gap, serum 15.5 [facility] - albumin/globulin ratio, serum 2.3 g/dL [facility] 1.1 - 2.5 globulin, serum 3.8 [facility] 2.3 - 3.8 urea nitrogen/creatinine ratio, serum 10.0 [facility] - Estimated Glomerular Filtration Rate (calc) 55.1 (?) [facility] 59.0 - Low chloride, serum 102.5 mmol/L [facility] 98.0 - 107.0 potassium, serum 4.5 mmol/L [facility] 3.5 - 5.1 sodium, serum 142.0 mmol/L [facility] 136.0 - 145.0 creatinine, serum 1.4 mg/dL [facility] 0.7 - 1.2 High carbon dioxide, venous blood 24.0 mmol/L [facility] 22.0 - 29.0 albumin, serum 4.3 g/dL [facility] 3.5 - 5.2 calcium, serum 9.7 mg/dL [facility] 8.6 - 10.2 aspartate aminotransferase (SGOT), serum 12.0 1/L [facility] 0.0 - 40.0 alkaline phosphatase, serum 53.0 1/L [facility] 40.0 - 130.0 alanine aminotransferase (SGPT), serum 17.0 1/L [facility] 0.0 - 41.0 protein, total, serum 8.1 g/dL [facility] 6.6 - 8.7 bilirubin, serum, total 0.3 mg/dL [facility] 0.0 - 1.2 urea nitrogen, blood 14.0 mg/dL [facility] 6.0 - 20.0 blood glucose, random 144.0 mg/dL [facility] 74.0 - 99.0 High red blood cell distribution width, size density 37.7 fL [facility] - immature granulocytes, percentage of total cells, blood 1.0 % [facility] nucleated red blood cells as percent of blood leukocytes 0.0 % [facility] - red blood cell (erythrocyte) count, per high power field 0.0 10*3/UL [facility] - eosinophils as percent of blood leukocytes 1.7 % [facility] neutrophils as percent of blood leukocytes 66.0 % [facility] - Absolute Neutrophils 6.0 CELLS/UL [facility] 1.5 - 7.8 basophils as percent of blood leukocytes 0.4 % [facility] - Absolute Basophils 0.0 CELLS/UL [facility] 0.0 - 0.2 monocytes as percent of blood leukocytes 5.8 % [facility] - Absolute Monocytes 0.5 CELLS/UL [facility] 0.2 - 1.0 lymphocytes as percent of blood leukocytes 25.1 % [facility] - Absolute Lymphocytes 2.3 CELLS/UL [facility] 0.9 - 3.9 mean platelet volume 9.7 (?) [facility] - platelet count 425.0 THOUSAND/UL [facility] 100.0 - 400.0 High mean corpuscular hemoglobin concentration, RBC 31.7 G/DL [facility] 31.0 - 38.0 mean corpuscular hemoglobin, RBC 26.9 pg [facility] 25.0 - 35.0 mean corpuscular volume, RBC 85.0 fL [facility] 75.0 - 100.0 hematocrit, blood 30.0 % [facility] 35.0 - 55.0 Low hemoglobin, blood 9.5 g/dL [facility] 11.5 - 16.5 Low erythrocyte count, whole blood 3.5 MILLION/UL [facility] 3.5 - 5.5 hemoglobin A1C, blood, as % of total hemoglobin 9.0 % [facility] 4.0 - 6.0 High reticulocyte count, absolute 0.065 10*6 CELLS/UL [facility] - reticulocyte count, blood, uncorrected 1.85 % [facility] 0.50 - 2.00 HISTORY OF MEDICATION USE Medication Status Instructions Dates Provider Indications Com ments Lipitor 40 mg tablet active Take 1 tablet by mouth once a day Soni Ni Nitrostat 0.4 mg tablet, sublingual active Place 1 tablet under tongue once a day as needed Soni Ni tamsulosin 0.4 mg capsule active Noemy Sewell amitriptyline 50 mg tablet active Noemyvirgen Sewell hydralazine 100 mg tablet active three times daily Lloyd Chu RN Lasix 20 mg tablet completed Take 1 tablet every morning - Tito Nettles MD losartan 100 mg tablet active Take 1 tablet by mouth once a day Lloyd Chu RN Coreg 25 mg tablet active Take 1 tablet by mouth twice a day Tito Nettles MD GABAPENTIN 300 MG ORAL CAPSULE completed take one tablet by mouth three times daily - Carla Carrillo #90, 30 days supply, Filled 09/27/2019 clonidine HCl 0.1 mg tablet completed Take 1 tablet by mouth twice a day - Alana Conde NP #60, 30 days supply, Filled 09/27/2019 Nitrostat 0.4 mg tablet, sublingual completed tablet under tongue as needed - Tito Nettles MD Lipitor 40 mg tablet completed 1 tablet once a day - Tito Nettles MD NALTREXONE HCL 50 MG ORAL TABLET completed take one daily - Tito Nettles MD LOSARTAN POTASSIUM 50 MG ORAL TABLET completed Take one tablet daily - Estephania Mead CALCIUM HIGH POTENCY 600 MG ORAL TABLET completed take one daily - Tito Nettles MD CATAPRES 0.1 MG ORAL TABLET completed take one twice daily - Tito Nettles MD FENOFIBRATE 145 MG ORAL TABLET completed 1 tab once daily - Kalyn Moctezuma GABAPENTIN 300 MG ORAL CAPSULE completed 1 tab 3x daily - Kalyn Jose Elias BACLOFEN 10 MG ORAL TABLET completed once daily - Kalyn Jose Elias TRADJENTA 5 MG ORAL TABLET completed once daily - Kalyn Moctezuma LOSARTAN POTASSIUM 100 MG ORAL TABLET completed once daily - Faraz Mendiola VITAMIN D3 5000 UNIT ORAL CAPSULE completed ONE TAB BY MOUTH DAILY - Kalyn Jose Elias PLAVIX 75 MG ORAL TABLET completed ONE TAB. DAILY - Kalyn Jose Elias COREG 12.5 MG ORAL TABLET completed ONE TAB. TWICE DAILY - Estephania Boston metformin 1,000 mg tablet active twice a day Tony Strauss ISOSORBIDE MONONITRATE ER 30 MG ORAL TABLET EXTENDED RELEASE 24 HOUR completed one tab. daily - Tony Strauss ISOSORBIDE MONONITRATE ER 60 MG ORAL TABLET EXTENDED RELEASE 24 HOUR completed one tab. daily - Tito Nettles MD glimepiride 4 mg tablet active once a day Tony Strauss LISINOPRIL 40 MG ORAL TABLET completed ONE TAB. DAILY - Kalyn Jose Elias ATORVASTATIN CALCIUM 40 MG ORAL TABLET completed once daily - Kalyn Jose Elias FENOFIBRATE 145 MG ORAL TABLET completed once daily - Fernando Nichols RN ASPIRIN 81 MG ORAL TABLET active 1 tablet once a day Tony Strauss SOCIAL HISTORY Date Observation Value Provider drug use no Tito Nettles MD alcohol use no Tito Nettles MD smoking status Never smoker Tito Ku drug use no Alana Conde NP alcohol use no Alana Conde NP smoking status Never smoker Alana graff NP social history E&M Alcohol Use - no D rug Use - no Smoking History: Edin merino has never smoked. Tito Nettles MD social history reviewed E&M revi ewed - no changes required Tito Nettles MD smoking status Never smoker Noemy gaston social history reviewed E&M revi ewed - no changes required Aaron Soni smoking status Never smoker Noemy gaston social history reviewed E&M revi ewed - no changes required Aaron Soni smoking status Never smoker Carla Marquezbrandie ell alcohol use no Aaron Lundb erg social history reviewed E&M revi ewed - no changes required Aaron Soni smoking status Never smoker Estephania Mead drug use no Aaron Lundb erg alcohol use no Aaron Lundb erg social history reviewed E&M revi ewed - no changes required Tito Nettles MD smoking status Never smoker Carla Marquezbrandie ell social history reviewed E&M revi ewed - no changes required Tito Nettles MD alcohol use no Kalyn Joes Elias drug use no Kalyn Jose Elias smoking status Never smoker Kalyn Jose Elias alcohol use no Tony Armando nson drug use no Tony Tr nson smoking status Never smoker Tony Sebas portillo social history E&M Alcohol Use - no D rug Use - no Smoking History: P wilber has never smoked. Aaron Soni social history reviewed E&M revi ewed - no changes required Aaron Soni alcohol use no Emilia Jose drug use no Emilia Garcia smoking status Never smoker Emilia Garcia social history reviewed E&M revi ewed - no changes required Ramón Jeffries MD alcohol use no Noemy bernarder smoking status Never smoker Noemy gaston smoking status Never smoker Ramón Jeffries MD social history reviewed E&M revi ewed - no changes required Ramón Jeffries MD alcohol use no Tony Armnado nson drug use no Tony Armando nson social history reviewed E&M revi ewed - no changes required Ramón Jeffries MD smoking status Never smoker Fernando Nichols RN social history E&M Alcohol Use - no D rug Use - no Smoking History: Edin merino has never smoked. Ramnó Jeffries MD drug use no Ramón Ku alcohol use no Ramón Ku smoking status Never smoker Tony Murrieta social history E&M S moking History: P wilber has never smoked. Jim Lauren MD social history reviewed E&M revi ewed - no changes required Jim Lauren MD smoking status Never smoker Tony Murrieta FUNCTIONAL STATUS Date Observation Value Provider HRA, CV Assess/Plan, Angina (inactive) Management Plan continue current therapy Tito Nettles MD HRA, CV Assess/Plan, Angina (inactive) Management Plan continue current therapy Soni Ni HRA, CV Assess/Plan, Angina (inactive) Management Plan continue current therapy Aaron Soni HRA, CV Assess/Plan, Angina (inactive) Management Plan continue current therapy Aaron Soni HRA, CV Assess/Plan, Angina (inactive) Management Plan continue current therapy Tito Nettles MD HRA, CV Assess/Plan, Angina (inactive) Management Plan continue current therapy Tito Nettles MD HRA, CV Assess/Plan, Angina (inactive) Management Plan continue current therapy Tito Nettles MD HRA, CV Assess/Plan, Angina (inactive) Management Plan schedule PCI Aaron Soni HRA, CV Assess/Plan, Angina (inactive) Management Plan continue current therapy Tito Nettles MD periodic limb movement index absent (0) Fernando Nichols RN FAMILY HISTORY Family Member Condition Father Family History of Ot her Cancer Mother Family History of CV A or Stroke: INSURANCE PROVIDERS Payer name Policy type / Coverage type [place] red democrat ID [employer]AGE [address] (HMO POS) Medicare [id number] ADVANCE DIRECTIVES Name Date DISCUSSED - NO DECISION MADE TREATMENT PLAN Date Name Performer [id number],Soni Goldman [id number],C, H is updated medication list for this problem includes: Losartan 100 Mg Tablet (Losartan) ..... Take 1 tablet by mouth once a day Glimepiride 4 Mg Tablet (Glimepiride) ..... Once a day Metformin 1,000 Mg Tablet (Metformin) ..... Twice a day Soni Kramertimothy [id number],C,H as not been taking because he has been unable to get a refill. Refilled his statin today. His updated medication list for this problem includes: Lipitor 40 Mg Tablet (Atorvastatin) ..... Take 1 tablet by mouth once a day Soni Kramertimothy [id number],C,B P is elevated today, however pt states that it is normal when checked at PCP office. He stopped Lasix due to nausea. H is updated medication list for this problem includes: Clonidine Hcl 0.1 Mg Tablet (Clonidine hcl) ..... Take 1 tablet by mouth twice a day Losartan 100 Mg Tablet (Losartan) ..... Take 1 tablet by mouth once a day Coreg 25 Mg Tablet (Carvedilol) ..... Take 1 tablet by mouth twice a day Hydralazine 50 Mg Tablet (Hydralazine) BP today: 170/100 P rior BP: 212/112 (09/17/2020) L abs Reviewed: C reat: 1.05 (08/07/2020) C hol: 111 (08/30/2017) HDL: 25 (08/30/2017) LDL: 118 (06/10/2020) Soni Kramertimothy [id number],C,B P is elevated today, however pt states that it is normal when checked at PCP office. He stopped Lasix due to nausea. Pt denies SOB and chest pain. Will order a f/u echo. H is updated medication list for this problem includes: Losartan 100 Mg Tablet (Losartan) ..... Take 1 tablet by mouth once a day Nitrostat 0.4 Mg Tablet, Sublingual (Nitroglycerin) ..... Place 1 tablet under tongue once a day as needed Coreg 25 Mg Tablet (Carvedilol) ..... Take 1 tablet by mouth twice a day Sonibeth Kramertimothy [id number],C,B P is elevated today, however pt states that it is normal when checked at PCP office. He stopped Lasix due to nausea. Pt denies SOB and chest pain. Will order a f/u echo. H is updated medication list for this problem includes: Nitrostat 0.4 Mg Tablet, Sublingual (Nitroglycerin) ..... Place 1 tablet under tongue once a day as needed Coreg 25 Mg Tablet (Carvedilol) ..... Take 1 tablet by mouth twice a day Soni Last Cardiology: H is updated medication list for this problem includes: Losartan 100 Mg Tablet (Losartan) ..... Take 1 tablet by mouth once a day Glimepiride 4 Mg Tablet (Glimepiride) ..... Once a day Metformin 1,000 Mg Tablet (Metformin) ..... Twice a day Tito Nettles MD Cardiology: E cho was normal EF 65% His updated medication list for this problem includes: Losartan 100 Mg Tablet (Losartan) ..... Take 1 tablet by mouth once a day Nitrostat 0.4 Mg Tablet, Sublingual (Nitroglycerin) ..... Place 1 tablet under tongue once a day as needed Coreg 25 Mg Tablet (Carvedilol) ..... Take 1 tablet by mouth twice a day Tito Nettles MD Cardiology: P t complains of intense low back pain. He will follow with PCP. BP is elevated, probably due to pain. BP today: 150/98 P rior BP: 162/94 (05/07/2024) Prior 10 Yr Risk Heart Disease: N/A (10/10/2015) Labs Reviewed: C reat: 1.05 (08/07/2020) C hol: 111 (08/30/2017) HDL: 25 (08/30/2017) LDL: 118 (06/10/2020) T (08/30/2017) His updated medication list for this problem includes: Losartan 100 Mg Tablet (Losartan) ..... Take 1 tablet by mouth once a day Hydralazine 100 Mg Tablet (Hydralazine) ..... Three times daily Coreg 25 Mg Tablet (Carvedilol) ..... Take 1 tablet by mouth twice a day Tito Nettles MD Cardiology: Isha veras pt's recent testing including his recent stress test and echo. Stress test was abnormal but pt is not having any sx of CP or SOB. Thus, will continue medical management. Echo EF was 65%. H is updated medication list for this problem includes: Nitrostat 0.4 Mg Tablet, Sublingual (Nitroglycerin) ..... Place 1 tablet under tongue once a day as needed Coreg 25 Mg Tablet (Carvedilol) ..... Take 1 tablet by mouth twice a day Tito Nettles MD Cardiology:Repeat ec ho H is updated medication list for this problem includes: Losartan 100 Mg Tablet (Losartan) ..... Take 1 tablet by mouth once a day Losartan 100 Mg Tablet (Losartan) ..... Take 1 tablet by mouth once a day Nitrostat 0.4 Mg Tablet, Sublingual (Nitroglycerin) ..... Place 1 tablet under tongue once a day as needed Coreg 25 Mg Tablet (Carvedilol) ..... Take 1 tablet by mouth twice a day Alana Conde NP Cardiology:Labs orde red H is updated medication list for this problem includes: Losartan 100 Mg Tablet (Losartan) ..... Take 1 tablet by mouth once a day Losartan 100 Mg Tablet (Losartan) ..... Take 1 tablet by mouth once a day Glimepiride 4 Mg Tablet (Glimepiride) ..... Once a day Metformin 1,000 Mg Tablet (Metformin) ..... Twice a day Alana Conde NP Cardiology:BP elevated, check re nal artery duplex Alana Conde NP Cardiology:Regadenos en stress test H is updated medication list for this problem includes: Nitrostat 0.4 Mg Tablet, Sublingual (Nitroglycerin) ..... Place 1 tablet under tongue once a day as needed Coreg 25 Mg Tablet (Carvedilol) ..... Take 1 tablet by mouth twice a day Alana Abarcamelanie CASTILLO Cardiology:Check carotid doppler s and lipids Alana Amaya CASTILLO Cardiology Follow up Soni Kristofer gupta Cardiology Follow up : H is updated medication list for this problem includes: Losartan 100 Mg Tablet (Losartan) ..... Take 1 tablet by mouth once a day Glimepiride 4 Mg Tablet (Glimepiride) ..... Once a day Metformin 1,000 Mg Tablet (Metformin) ..... Twice a day Soni Ni Cardiology Follow up :Has not been taking because he has been unable to get a refill. Refilled his statin today. His updated medication list for this problem includes: Lipitor 40 Mg Tablet (Atorvastatin) ..... Take 1 tablet by mouth once a day Soni Ni Cardiology Follow up :BP is elevated today, however pt states that it is normal when checked at PCP office. He stopped Lasix due to nausea. H is updated medication list for this problem includes: Clonidine Hcl 0.1 Mg Tablet (Clonidine hcl) ..... Take 1 tablet by mouth twice a day Losartan 100 Mg Tablet (Losartan) ..... Take 1 tablet by mouth once a day Coreg 25 Mg Tablet (Carvedilol) ..... Take 1 tablet by mouth twice a day Hydralazine 50 Mg Tablet (Hydralazine) BP today: 170/100 P rior BP: 212/112 (09/17/2020) L abs Reviewed: C reat: 1.05 (08/07/2020) C hol: 111 (08/30/2017) HDL: 25 (08/30/2017) LDL: 118 (06/10/2020) Soni Ni Cardiology Follow up :BP is elevated today, however pt states that it is normal when checked at PCP office. He stopped Lasix due to nausea. Pt denies SOB and chest pain. Will order a f/u echo. & #13; H is updated medication list for this problem includes: Losartan 100 Mg Tablet (Losartan) ..... Take 1 tablet by mouth once a day Nitrostat 0.4 Mg Tablet, Sublingual (Nitroglycerin) ..... Place 1 tablet under tongue once a day as needed Coreg 25 Mg Tablet (Carvedilol) ..... Take 1 tablet by mouth twice a day Soni Kramertimothy Cardiology Follow up :BP is elevated today, however pt states that it is normal when checked at PCP office. He stopped Lasix due to nausea. Pt denies SOB and chest pain. Will order a f/u echo. & #13; H is updated medication list for this problem includes: Nitrostat 0.4 Mg Tablet, Sublingual (Nitroglycerin) ..... Place 1 tablet under tongue once a day as needed Coreg 25 Mg Tablet (Carvedilol) ..... Take 1 tablet by mouth twice a day Sonibeth Kramertimothy Cardiology Follow up :His updated medication list for this problem includes: Losartan Potassium 100 Mg Oral Tablet (Losartan potassium) ..... Take one tablet by mouth once daily Metformin Hcl 1000 Mg Oral Tablet (Metformin hcl) ..... Twice daily Glimepiride 4 Mg Oral Tablet (Glimepiride) ..... Once daily Aspirin 81 Mg Oral Tablet (Aspirin) ..... One tab. daily [facility] Cardiology Follow up :His updated medication list for this problem includes: Lipitor 40 Mg Oral Tablet (Atorvastatin calcium) ..... One tab. daily [facility] Cardiology Follow up :His updated medication list for this problem includes: Lipitor 40 Mg Oral Tablet (Atorvastatin calcium) ..... One tab. daily [facility] Cardiology Follow up :Hgb was 9.6 and proBNP was 1313. [facility] Cardiology Follow up :Renal carroll ry duplex was normal. [facility] Cardiology Follow up :Hgb was 9.6 and proBNP was 1313. Holter showed rare PVC's and PAC's. Renal artery duplex was normal. Echo showed EF of 70% with moderate LAE, moderate MR and moderate TR. RVSP was consistent with moderate pulmonary HTN. He had another visit to [facility] for uncontrolled HTN and leg swelling. At this time he says leg swelling has resolved and he denies SOB. Will start Lasix 20mg daily. [facility] Cardiology Follow up :Hgb was 9.6 and proBNP was 1313. Echo showed EF of 70% with moderate LAE, moderate MR and moderate TR. RVSP was consistent with moderate pulmonary HTN. He had another visit to [facility] for uncontrolled HTN and leg swelling. At this time he says leg swelling has resolved and he denies SOB. Will start Lasix 20mg daily. His updated medication list for this problem includes: Lasix 20 Mg Oral Tablet (Furosemide) ..... Take one tablet every morning Losartan Potassium 100 Mg Oral Tablet (Losartan potassium) ..... Take one tablet by mouth once daily Coreg 25 Mg Oral Tablet (Carvedilol) ..... Take one tablet by mouth twice daily [facility] Cardiology Follow up :Renal artery duplex was normal. Echo showed EF of 70% with moderate LAE, moderate MR and moderate TR. RVSP was consistent with moderate pulmonary HTN. He had another visit to [facility] for uncontrolled HTN and leg swelling. At this time he says leg swelling has resolved and he denies SOB. WIll start Lasix 20mg daily. BP is elevated today but he has not taken any of his medications. Advised him to take his medications consistently as prescribed. BP today: 212/112 P rior BP: 142/76 (08/04/2020) His updated medication list for this problem includes: Lasix 20 Mg Oral Tablet (Furosemide) ..... Take one tablet every morning Losartan Potassium 100 Mg Oral Tablet (Losartan potassium) ..... Take one tablet by mouth once daily Coreg 25 Mg Oral Tablet (Carvedilol) ..... Take one tablet by mouth twice daily Clonidine Hcl 0.1 Mg Oral Tablet (Clonidine hcl) ..... Take one tablet by mouth twice daily [facility] follow up :Orders: C BC (INCLUDES DIFF/PLT) (1047) [facility] follow up :Pt presented to [facility] in June 2020 with uncontrolled HTN and elevated troponin. BNP was mildly elevated at 227. 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 QRS appears widened on EKG today compared to prior EKG's. Will schedule an echo, Holter monitor. [facility] follow up :His updated medication list for this problem includes: Losartan Potassium 100 Mg Oral Tablet (Losartan potassium) ..... Take one tablet by mouth once daily Metformin Hcl 1000 Mg Oral Tablet (Metformin hcl) ..... Twice daily Glimepiride 4 Mg Oral Tablet (Glimepiride) ..... Once daily Aspirin 81 Mg Oral Tablet (Aspirin) ..... One tab. daily [facility] follow up :His updated medication list for this problem includes: Lipitor 40 Mg Oral Tablet (Atorvastatin calcium) ..... One tab. daily [facility] follow up :His updated medication list for this problem includes: Lipitor 40 Mg Oral Tablet (Atorvastatin calcium) ..... One tab. daily [facility] follow up :BP today: 142/76 P rior BP: 140/70 (10/01/2019) His updated medication list for this problem includes: Losartan Potassium 100 Mg Oral Tablet (Losartan potassium) ..... Take one tablet by mouth once daily Coreg 25 Mg Oral Tablet (Carvedilol) ..... Take one tablet by mouth twice daily Clonidine Hcl 0.1 Mg Oral Tablet (Clonidine hcl) ..... Take one tablet by mouth twice daily [facility] follow up :Pt presented to [facility] in June 2020 with uncontrolled HTN and elevated troponin. BNP was mildly elevated at 227. 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 When seen today, he continues to have significant SOB and fatigue with exertion. QRS appears widened on EKG today compared to prior EKG's. Will schedule an echo, renal artery duplex, Holter monitor and labwork. [facility] follow up :Pt presented to [facility] in June 2020 with uncontrolled HTN and elevated troponin. BNP was mildly elevated at 227. 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 When seen today, he continues to have significant SOB and fatigue with exertion. QRS appears widened on EKG today compared to prior EKG's. Will schedule an echo, renal artery duplex, Holter monitor and labwork. His updated medication list for this problem includes: Losartan Potassium 100 Mg Oral Tablet (Losartan potassium) ..... Take one tablet by mouth once daily Coreg 25 Mg Oral Tablet (Carvedilol) ..... Take one tablet by mouth twice daily Orders: B ASIC METABOLIC PANEL W/EGFR (13071) P ROBNP, N TERMINAL (17093) C BC (INCLUDES DIFF/PLT) (6308) [facility] follow up :Pt presented to [facility] in June 2020 with uncontrolled HTN and elevated troponin. BNP was mildly elevated at 227. 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 When seen today, he continues to have significant SOB and fatigue with exertion. QRS appears widened on EKG today compared to prior EKG's. Will schedule an echo, renal artery duplex, Holter monitor and labwork. His updated medication list for this problem includes: Coreg 25 Mg Oral Tablet (Carvedilol) ..... Take one tablet by mouth twice daily Nitrostat 0.4 Mg Sublingual Tablet Sublingual (Nitroglycerin) ..... Apply one tab under tongue every 5 minutes for 3 total doses as needed for chest pain. if no relief after 3rd dose, go to er Aspirin 81 Mg Oral Tablet (Aspirin) ..... One tab. daily [facility] follow up :Pt presented to [facility] in June 2020 with uncontrolled HTN and elevated troponin. BNP was mildly elevated at 227. 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 When seen today, he continues to have significant SOB and fatigue with exertion. QRS appears widened on EKG today compared to prior EKG's. Will schedule an echo, renal artery duplex, Holter monitor and labwork. [facility] Cardiology:His [facility] ed medication list for this problem includes: Losartan Potassium 100 Mg Oral Tablet (Losartan potassium) ..... Take one tablet by mouth once daily Metformin Hcl 1000 Mg Oral Tablet (Metformin hcl) ..... Twice daily Glimepiride 4 Mg Oral Tablet (Glimepiride) ..... Once daily Aspirin 81 Mg Oral Tablet (Aspirin) ..... One tab. daily [facility] Cardiology:DIRECT LD L: 136 (09/13/2019) Pt was not compliant with Rx at time of lab test. His updated medication list for this problem includes: Lipitor 40 Mg Oral Tablet (Atorvastatin calcium) ..... One tab. daily [facility] Cardiology:The raimundo nt had a recent admission due to uncontrolled HTN associated with CHF and mild troponin elevation. He was not compliant with Rx. Today BP is well controlled. No CP or SOB. Will obtain renal artery duplex in 2-3 months. BP today: 140/70 P rior BP: 160/98 (03/07/2019) His updated medication list for this problem includes: Losartan Potassium 100 Mg Oral Tablet (Losartan potassium) ..... Take one tablet by mouth once daily Coreg 25 Mg Oral Tablet (Carvedilol) ..... Take one tablet by mouth twice daily Clonidine Hcl 0.1 Mg Oral Tablet (Clonidine hcl) ..... Take one tablet by mouth twice daily [facility] Cardiology:The raimundo nt had a recent admission due to uncontrolled HTN associated with CHF and mild troponin elevation. He was not compliant with Rx. Today BP is well controlled. No CP or SOB. Will obtain renal artery duplex in 2-3 months. His updated medication list for this problem includes: Coreg 25 Mg Oral Tablet (Carvedilol) ..... Take one tablet by mouth twice daily Nitrostat 0.4 Mg Sublingual Tablet Sublingual (Nitroglycerin) ..... Apply one tab under tongue every 5 minutes for 3 total doses as needed for chest pain. if no relief after 3rd dose, go to er Aspirin 81 Mg Oral Tablet (Aspirin) ..... One tab. daily [facility] Cardiology:The patie nt had a recent admission due to uncontrolled HTN associated with CHF and mild troponin elevation. He was not compliant with Rx. Today BP is well controlled. No CP or SOB. Will obtain renal artery duplex in 2-3 months. His updated medication list for this problem includes: Losartan Potassium 100 Mg Oral Tablet (Losartan potassium) ..... Take one tablet by mouth once daily Coreg 25 Mg Oral Tablet (Carvedilol) ..... Take one tablet by mouth twice daily [facility] Cardiology follow up :Pt felt drowsy after taking his medications and stopped taking all of his cardiac medications a couple of months ago. Denies chest pain or SOB. We will start Losartan 50mg, Coreg 12.5mg BID, Lipitor 40mg daily and he will continue his ASA. If he gets drowsy again, he's instructed to stop Losartan and if it doesn't help, he will call us. Will obtain a f/u echo. The following medications were removed from the medication list: Isosorbide Mononitrate Er 60 Mg Oral Tablet Extended Release 24 Hour (Isosorbide mononitrate) ..... One tab. daily His updated medication list for this problem includes: Nitrostat 0.4 Mg Sublingual Tablet Sublingual (Nitroglycerin) ..... Apply one tab under tongue every 5 minutes for 3 total doses as needed for chest pain. if no relief after 3rd dose, go to er Coreg 12.5 Mg Oral Tablet (Carvedilol) ..... One tab. twice daily Aspirin 81 Mg Oral Tablet (Aspirin) ..... One tab. daily [facility] Cardiology follow up :His updated medication list for this problem includes: Losartan Potassium 50 Mg Oral Tablet (Losartan potassium) ..... Take one tablet daily Metformin Hcl 1000 Mg Oral Tablet (Metformin hcl) ..... Twice daily Glimepiride 4 Mg Oral Tablet (Glimepiride) ..... Once daily Aspirin 81 Mg Oral Tablet (Aspirin) ..... One tab. daily [facility] Cardiology follow up :Pt felt drowsy after taking his medications and stopped taking all of his cardiac medications a couple of months ago. We will start Lipitor 40mg daily. [facility] Cardiology follow up :Pt felt drowsy after taking his medications and stopped taking all of his cardiac medications a couple of months ago. We will start Losartan 50mg, Coreg 12.5mg BID. If he gets drowsy again, he's instructed to stop Losartan and if it doesn't help, he will call us. Will obtain a f/u echo. BP today: 160/98 P rior BP: 144/90 (07/10/2018) The following medications were removed from the medication list: Catapres 0.1 Mg Oral Tablet (Clonidine hcl) ..... Take one twice daily His updated medication list for this problem includes: Losartan Potassium 50 Mg Oral Tablet (Losartan potassium) ..... Take one tablet daily Coreg 12.5 Mg Oral Tablet (Carvedilol) ..... One tab. twice daily [facility] Cardiology follow up Aaron Graff [facility] Cardiology follow up :Not interested in studies at this time. [facility] Cardiology follow up :The following medications were removed from the medication list: Fenofibrate 145 Mg Oral Tablet (Fenofibrate) ..... 1 tab once daily Atorvastatin Calcium 40 Mg Oral Tablet (Atorvastatin calcium) ..... Once daily [facility] Cardiology follow up :BP today: 144/90 P rior BP: 151/83 (06/01/2017) The following medications were removed from the medication list: Lisinopril 40 Mg Oral Tablet (Lisinopril) ..... One tab. daily His updated medication list for this problem includes: Losartan Potassium 100 Mg Oral Tablet (Losartan potassium) ..... Take one daily Catapres 0.1 Mg Oral Tablet (Clonidine hcl) ..... Take one twice daily Carvedilol 25 Mg Oral Tablet (Carvedilol) ..... One tab twice daily [facility] Cardiology follow up :The following medications were removed from the medication list: Plavix 75 Mg Oral Tablet (Clopidogrel bisulfate) ..... One tab. daily Lisinopril 40 Mg Oral Tablet (Lisinopril) ..... One tab. daily His updated medication list for this problem includes: Carvedilol 25 Mg Oral Tablet (Carvedilol) ..... One tab twice daily Isosorbide Mononitrate Er 60 Mg Oral Tablet Extended Release 24 Hour (Isosorbide mononitrate) ..... One tab. daily Aspirin 81 Mg Oral Tablet (Aspirin) ..... One tab. daily [facility] Cardiology:Orders: S NOMED-CT: [id number] Current Medications Documented ([facility]-[id number]) C BC (INCLUDES DIFF/PLT) (6306) Aaron [facility] Cardiology:He has el evated UACR and is interested in participating in the Bioscan DKD study. Orders: B ASIC METABOLIC PANEL W/EGFR (30867) His updated medication list for this problem includes: Tradjenta 5 Mg Oral Tablet (Linagliptin) ..... Once daily Losartan Potassium 100 Mg Oral Tablet (Losartan potassium) ..... Once daily Metformin Hcl 1000 Mg Oral Tablet (Metformin hcl) ..... Twice daily Glimepiride 4 Mg Oral Tablet (Glimepiride) ..... Once daily Lisinopril 10 Mg Oral Tablet (Lisinopril) ..... One tab. daily Aspirin 81 Mg Oral Tablet (Aspirin) ..... One tab. daily [facility] Cardiology:Orders: L IPID PANEL (8051) His updated medication list for this problem includes: Fenofibrate 145 Mg Oral Tablet (Fenofibrate) ..... 1 tab once daily Atorvastatin Calcium 40 Mg Oral Tablet (Atorvastatin calcium) ..... Once daily [facility] Cardiology:Orders: L IPID PANEL (5634) His updated medication list for this problem includes: Fenofibrate 145 Mg Oral Tablet (Fenofibrate) ..... 1 tab once daily Atorvastatin Calcium 40 Mg Oral Tablet (Atorvastatin calcium) ..... Once daily [facility] Cardiology:BP today: 151/83 P rior BP: 140/90 (04/04/2017) His updated medication list for this problem includes: Losartan Potassium 100 Mg Oral Tablet (Losartan potassium) ..... Once daily Carvedilol 25 Mg Oral Tablet (Carvedilol) ..... One tab twice daily Lisinopril 10 Mg Oral Tablet (Lisinopril) ..... One tab. daily Aaron Soni Cardiology:He has el evated UACR and is interested in participating in the Bioscan DKD study. Orders: S NOMED-CT: [id number] Current Medications Documented ([facility]-[id number]) B ASIC METABOLIC PANEL W/EGFR (56707) Aaron Mcfaddenberg Cardiology:Myoview s can showed mid anterior wall ischemia. Echo showed normal EF. Will schedule cardiac cath (he had stents in early 2015). His updated medication list for this problem includes: Plavix 75 Mg Oral Tablet (Clopidogrel bisulfate) ..... One tab. daily Carvedilol 25 Mg Oral Tablet (Carvedilol) ..... One tab twice daily Isosorbide Mononitrate Er 60 Mg Oral Tablet Extended Release 24 Hour (Isosorbide mononitrate) ..... One tab. daily Lisinopril 10 Mg Oral Tablet (Lisinopril) ..... One tab. daily Aspirin 81 Mg Oral Tablet (Aspirin) ..... One tab. daily Aaron Nea Cardiology:Myoview s can showed mid anterior wall ischemia. Echo showed normal EF. PFT's were unremarkable. ProBNP was normal. Will schedule cardiac cath (he had stents in early 2015). Aaron Soni Cardiology:CHOL: 90. 0 (10/03/2015) HDL: 20.0 (10/03/2015) T.0 (10/03/2015) LDL: 51.0 (10/03/2015) His updated medication list for this problem includes: Atorvastatin Calcium 40 Mg Oral Tabs (Atorvastatin calcium) ..... Once daily Aaron Nae Cardiology:CHOL: 90. 0 (10/03/2015) HDL: 20.0 (10/03/2015) T.0 (10/03/2015) LDL: 51.0 (10/03/2015) His updated medication list for this problem includes: Atorvastatin Calcium 40 Mg Oral Tabs (Atorvastatin calcium) ..... Once daily Aaron Nae Cardiology:BP today: 140/90 P rior BP: 180/106 (04/08/2016) His updated medication list for this problem includes: Losartan Potassium 100 Mg Oral Tabs (Losartan potassium) ..... Once daily Carvedilol 25 Mg Tabs (Carvedilol) ..... One tab twice daily Lisinopril 10 Mg Tabs (Lisinopril) ..... One tab. daily Aaron Soni Cardiology:Labs Revi ewed: H gBA1c: 9.0 (10/03/2015) Creat: 1.1 (2016) His updated medication list for this problem includes: Tradjenta 5 Mg Oral Tabs (Linagliptin) ..... Once daily Losartan Potassium 100 Mg Oral Tabs (Losartan potassium) ..... Once daily Metformin Hcl 1000 Mg Tabs (Metformin hcl) ..... Twice daily Glimepiride 4 Mg Tabs (Glimepiride) ..... Once daily Lisinopril 10 Mg Tabs (Lisinopril) ..... One tab. daily Aspirin 81 Mg Tabs (Aspirin) ..... One tab. daily Orders: U RINALYSIS, RANDOM, MICROALB/CREATININE (6517) Aaron Soni Cardiology:Pt compla ins of SOB with mild exertion. He had an [place] and 3 stents back in Aug 2015. Will obtain stress myoview and echo. His updated medication list for this problem includes: Plavix 75 Mg Tabs (Clopidogrel bisulfate) ..... One tab. daily Carvedilol 25 Mg Tabs (Carvedilol) ..... One tab twice daily Isosorbide Mononitrate Cr 60 Mg Tb24 (Isosorbide mononitrate) ..... One tab. daily Lisinopril 10 Mg Tabs (Lisinopril) ..... One tab. daily Aspirin 81 Mg Tabs (Aspirin) ..... One tab. daily Aaron Nae Cardiology:Pt compla ins of SOB with mild exertion. He had an [place] and 3 stents back in Aug 2015. Will obtain stress myoview, echo and PFT's. Will check proBNP. Aaron Soni Hem/Onc Follow up :T he patient had elevated PSA on last assessement. Recheck today and refer to urology. O rders: U teresita (*) P SA Screen (417921) 9 9206 LTD. Complex (CPT-11799) Ramón Jeffries MD Hem/Onc Follow up :T he patient has had a mild anemia likely related to anemia of CKD. His last Hgb was actually in normal range. I will recheck CBC and CMP today. I reassured the patient and recommended observation. Orders: C BC (INCLUDES DIFF/PLT) (6399) C OMPREHENSIVE METABOLIC PANEL W/EGFR (76495) R ETICULOCYTE COUNT, MANUAL (8699) 9 9213 LTD. Complex (CPT-37476) Ramón Jeffries MD Hem/Onc:Refer to uro logy for evaluation of enlarged prostate and elevated PSA of 6. Orders: U teresita (*) 9 9252 MOD Complex (CPT-72761) Rmaón Jeffries MD Hem/Onc:The patient has a normocytic anemia which is likely secondary to anemia of CKD. His serum Epo was subnormal. Given his elevated inflammatory markers, I will rule out an underlying autoimmune disorder. He will follow up in three months for repeat blood counts. Orders: S NOMED-CT: [id number] Current Medications Documented ([facility]-[id number]) C BC (INCLUDES DIFF/PLT) (6399) A NA w/Reflex if Positive (546278) C OMPREHENSIVE METABOLIC PANEL W/EGFR (53914) R HEUMATOID FACTOR (4418) 9 9214 MOD Complex (CPT-07923) Ramón Jeffries MD Hem/Onc:Given family history of prostate cancer, I will check a PSA screen today. O rders: 9 9244 MOD C omplex (CPT-53704) Ramón Jeffries MD Hem/Onc:The patient has had a progressively worsening anemia since January 2015. The patient states he had a normal colonoscopy done after the age of 51. I will obtain records. I will check SPEP, Free light chains, serum epo, sed rate, TSH and STFR. I will call him with results of lab testing. He will return in three months. Orders: S NOMED-CT: [id number] Current Medications Documented ([facility]-[id number]) C BC (INCLUDES DIFF/PLT) (6399) E LECTROPHORESIS AND IMMUNOFIXATION, SERUM WITH TRACING (68153) S OLUBLE TRANSFERRIN RECEPTOR (602365) S ED RATE BY MODIFIED WESTERGREN (809) E rythropoietin (EPO), Serum (836962) P SA Screen (062599) L DH (996070) K APPA LIGHT CHAIN, FREE (87912) L AMBDA LIGHT CHAIN, FREE (19279) T SH (108081) 9 5344 MOD C omplex (CPT-84284) Ramón Jeffries MD pa Fenofibrate:cd? Jim Lauren MD Cardiology:MAY SX WILL VLADIMIR Lauren MD Cardiology:WILL VLADIMIR Lauren MD Cardiology:ON RX Jim Ku Cardiology:09/2015, SEE CAD Brenda Laurne MD Cardiology Jim Lauren MD Cardiology Jim Lauren MD Cardiology: B P today: 114/78 N EG ANGIO 16 Jim Lauren MD Cardiology:[place] 09/2015 PROMOS PUT IN CX , PROMOS PUT IN LAD, LV NML, WILL STRESS, ECHO AND DO CARDIAC REHAB Jim Lauren MD Date Name Urology Urology Urology Renal Artery Duplex Carotid Duplex Bilat eral Complete Echo Stress Regadenoson Microalb/Creatinine Urine, Random HEMOGLOBIN A1c BASIC METABOLIC PANE L W/EGFR Lipoprotein (a) LIPID PANEL PROBNP, N TERMINAL Complete Echo CBC (INCLUDES DIFF/P LT) PROBNP, N TERMINAL BASIC METABOLIC PANE L W/EGFR Holter Monitor 24 Hr Renal Artery Duplex Complete Echo Renal Artery Duplex PROTHROMBIN TIME WIT H INR LIPID PANEL CBC (INCLUDES DIFF/P LT) BASIC METABOLIC PANE L W/EGFR PROTHROMBIN TIME WIT H INR CBC (INCLUDES DIFF/P LT) LIPID PANEL BASIC METABOLIC PANE L W/EGFR Cardiac Cath - Left - GC URINALYSIS, RANDOM, MICROALB/CREATININE PROBNP, N TERMINAL Complete Echo STR - Nuclear DLCO - 78417 FRC - 60540 FVC - 49893 RETICULOCYTE COUNT, MANUAL PSA Screen COMPREHENSIVE METABO LIC PANEL W/EGFR CBC (INCLUDES DIFF/P LT) RHEUMATOID FACTOR COMPREHENSIVE METABO LIC PANEL W/EGFR MOUSTAPHA w/Reflex if Posi tive CBC (INCLUDES DIFF/P LT) HEMOGLOBINOPATHY JOEL LUATION TSH LAMBDA LIGHT CHAIN, FREE KAPPA LIGHT CHAIN, F REE LDH PSA Screen Erythropoietin (EPO) , Serum SED RATE BY MODIFIED WESTERGREN SOLUBLE TRANSFERRIN RECEPTOR ELECTROPHORESIS AND IMMUNOFIXATION, SERUM WITH TRACING CBC (INCLUDES DIFF/P LT) Sleep Study Home STR - Routine VITAMIN D, 25-HYDROX Y, LC/MS/MS HEMOGLOBIN A1c PROBNP, N TERMINAL THYROID PANEL WITH T SH, 3RD GENERATION COMPREHENSIVE METABO LIC PANEL W/EGFR LIPID PANEL VITAMIN B12 RETICULOCYTE COUNT IRON AND TOTAL IRON BINDING CAPACITY FOLATE, SERUM FERRITIN CBC (INCLUDES DIFF/P LT) Carotid Duplex Bilat eral Complete Echo HISTORY OF PROCEDURES Procedure Date Procedure Name Provider Procedure Notes S tatus Complex e/m visit add on Tito Nettles MD completed EKG Tito Nettles MD completed Holter, 24 or 48 Tito Nettles MD comp leted Holter, 24 or 48 Tito Nettles MD comp leted EKG Tito Nettles MD completed EKG Tito Nettles MD completed EKG Tito Nettles MD completed SNOMED-CT: 35017644 Physical Exam, Performed: Pulse Exam of Foot Tito Nettles MD completed SNOMED-CT: 520445059 492078 Current Medications Documented Tito Nettles MD completed Stress EKG Niranjan Hodges MD completed Cardiolite, 2 units Jim Lauren MD completed SPECT Images Andrew Abreu MD completed FVC / MVV - 05346 Jim Lauren MD c ompleted BLOOD COUNT HEMOGLOBIN Jim Lauren MD completed FRC - 95403 Jim Lauren MD complet ed SpO2 - 16662 Jim Lauren MD comple hao DLCO - 17780 Jim Lauren MD comple hao SNOMED-CT: 20081453 Physical Exam, Performed: Pulse Exam of Foot Tito Nettles MD completed EKG Tito Nettles MD completed SNOMED-CT: 038806037 924629 Current Medications Documented Tito Nettles MD completed SNOMED-CT: 499520826 303222 Current Medications Documented Ramón Jeffries MD completed SNOMED-CT: 510025618 293055 Current Medications Documented Ramón Jeffries MD completed SNOMED-CT: 568246004 668745 Current Medications Documented Ramón Jeffries MD completed SNOMED-CT: 95994891 Physical Exam, Performed: Pulse Exam of Foot Jim Lauren MD completed EKG Jim Lauren MD complete d SNOMED-CT: 443164047 191554 Current Medications Documented Jim Lauren MD completed
[2024-12-03 09:55] LABS: Estimated Glomerular Filt Rate 60
== END 2024-12-03 09:19 | disposition home or self-care (01) ==
PROVIDERS: PCP Internal Medicine Infectious Disease; Visit Provider Internal Medicine Infectious Disease
DX: D44.10 Neoplasm of uncertain behavior of unspecified adrenal gland (principal); N40.0 Benign prostatic hyperplasia without lower urinary tract symptoms; M16.12 Unilateral primary osteoarthritis, left hip
CPT/HCPCS: 73502; 74177; Q9967

== ENCOUNTER 2025-03-25 13:33 | Outpatient (CLI) | payer MEDICARE, SELFPAY ==
--- OUTSIDE RECORDS SUMMARY | 2021-06-01 15:52 | XMS_ITS | Encounter Summary ---
Author Organization [facility] Address [address] [place] [address] Care Team Providers Care Lance Crewmember/Mlrs Sergeant Name Role Phone Nghia Ag MD Primary Care Provider [phone] Encounter Details Date Type Department Care Team (Latest Contact Info) Description 06/01/2021 2:52 PM GAS DIST[employer]BUTION SUPERVISOR Hospital Encounter [address] [address] Batool Zhang MD [address] [place] [address] [place] [phone] [employer] Social History Tobacco Use Types Packs/Day Years Used Date Smoking Tobacco: Never Assessed PHQ-2 Answer Date Recorded PHQ2 TOTAL SCORE 0 05/29/2021 Sex and Gender Information Value Date Recorded Sex Assigned at Not on file Legal Sex Male 12:46 PM 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 Answer Date of Assessment Author No 05/28/2021 10:30 AM Shelby Figueroa RN * Is person blind or have serious difficulty seeing? Answer Date of Assessment Author No 05/28/2021 10:30 AM Shelby Figueroa RN * Does person have serious difficulty walking/climbing stairs? Answer Date of Assessment Author No 05/28/2021 10:30 AM Shelby Figueroa RN * Does person have difficulty dressing/bathing? Answer Date of Assessment Author No 05/28/2021 10:30 AM Shelby Figueroa RN * Does person have difficulty doing errands alone? Answer Date of Assessment Author No 05/28/2021 10:30 AM Shelby Figueroa RN documented as of this encounter Mental Status * Does person have difficulty concentrating/remembering/making decisions? Answer Entry Date Author No 05/28/2021 10:30 AM Shelby Figueroa RN documented in this encounter Plan of Treatment Upcoming Encounters Date Type Department Care Team (Late st Contact Info) Description 05/08/2025 3:00 PM GAS DISTRIBUTION SUPERVISOR Office Visit [facility] - Neurology [address] [facility], [facility] [place] [id number] Ruddy Garcia MD [address] [place] [address] documented as of this encounter Visit Diagnoses Not on filedocumented in this encounter Care Teams Lance Crewmember/Mlrs Sergeant Relationship Specialty Start Date End Date Nghia Ag MD [address] [place] [phone] PCP - General Internal Medicine 05/27/21 02/10/25 documented as of this encounter
--- OUTSIDE RECORDS SUMMARY | 2025-03-25 13:56 | XMS_ITS | Clinical Summary ---
Author Organization [facility] Address [address] [place] [address] Care Team Providers Care Cadet Deck Name Role Phone Catrachito Yanez MD Primary Care Provider Source Comments [facility] ([facility]),non-owned Affiliates and Associated Physician Practices is amultiple site organization consisting of ambulatory clinics and hospital sitesin [place], [place], [place] and [place]. This disclosure is being madepursuant to the Care Everywhere program and may not contain all information available regarding this patient. Last updated 18.[facility] Allergies No known active allergies Medications * [...] Date Diagnosed Date Cerebrovascular accident (CVA) 05/27/2021 Encounters Date Type Department Care Team Description 03/19/2025 Travel 02/11/2025 Travel from Last 3 Months Family History Medical History Relation Name Comments [...] on file Legal Sex Male 12:46 PM ALIGNMENT MECHANIC Gender Identity Not on file Sexual Orientation Not on file Last Filed Vital Signs Vital Sign Reading Time Taken Comments Blood Pressure 129/72 06/01/2021 1:02 PM ALIGNMENT MECHANIC Pulse 77 06/01/2021 1:02 PM ALIGNMENT MECHANIC Temperature 36.5 C (97.7 F) 06/01/2021 11:08 AM ALIGNMENT MECHANIC Respiratory Rate 19 06/01/2021 1:02 PM ALIGNMENT MECHANIC Oxygen Saturation 96% 06/01/2021 11:08 AM ALIGNMENT MECHANIC Inhaled Oxygen Concentration - - Weight 99.8 kg (220 lb) 05/29/2021 5:01 AM ALIGNMENT MECHANIC Height 175.3 cm (5' 9) 05/28/2021 10:37 AM ALIGNMENT MECHANIC Body Mass Index 32.49 05/28/2021 10:37 AM ALIGNMENT MECHANIC Plan of Treatment Upcoming Encounters Date Type Department Care Team (Late st Contact Info) Description 05/08/2025 3:00 PM ALIGNMENT MECHANIC Office Visit [facility] - Neurology [address] [address] Ruddy Garcia MD [address] [place] [address] Health Maintenance Due Date Last Done Comments [...] (1 of 2) 2006 AAA SCREENING 2021 SCREENING FOR DIABETES 06/18/2024 , 06/13/2021, 06/11/2021, Additional history exists DEPRESSION SCREENING 07/04/2024 MEDICARE AWV CALENDAR YEAR 2024 COVID-19 VACCINE ( season) 2025 12/04/2020, 11/13/2020 INFLUENZA VACCINE (#1) 2025 06/10/2020 Respiratory Syncytial Virus (RSV) Vaccine [...] COMPREHENSIVE METABOLIC PANEL Routine 06/18/2021 6:00 AM ALIGNMENT MECHANIC from Last 3 Months or Most Recently Relevant to Health Maintenance Results * COMPREHENSIVE METABOLIC PANEL (06/18/2021 6:00 AM ALIGNMENT MECHANIC) [facility] Glucose 98 70 - 105 mg/dL 06/18/2021 6:58 AM ALIGNMENT MECHANIC [facility] Sodium 139 136 - 145 mmol/L 06/18/2021 6:58 AM ALIGNMENT MECHANIC [facility] Potassium 4.4 3.5 - 5.1 mmol/L 06/18/2021 6:[address] [facility] Chloride 105 98 - 107 mmol/L 06/18/2021 6:[address] [facility] CO2 24 23 - 31 mmol/L 06/18/2021 6:[address] [facility] Calcium 9.3 8.4 - 10.4 mg/dL 06/18/2021 6:[address] [facility] Anion Gap 10 8 - 18 mmol/L 06/18/2021 6:[address] [facility] BUN 18 8.4 - 25.7 mg/dL 06/18/2021 6:[address] [facility] Creatinine 1.18 0.72 - 1.25 mg/dL 06/18/2021 6:[address] [facility] Alkaline Phosphatase 63 40 - 150 U/L 06/18/2021 6:[address] [facility] ALT 25 0 - 61 U/L 06/18/2021 6:[address] [facility] AST 17 5 - 34 U/L 06/18/2021 6:[address] [facility] Protein Total 7.1 6.4 - 8.3 gm/dL 06/18/2021 6:[address] [facility] Albumin 3.9 3.2 - 4.6 gm/dL 06/18/2021 6:[address] [facility] Bilirubin Total 0.7 0.2 - 1.2 mg/dL 06/18/2021 6:[address] [facility] eGFR by MDRD >60 >60 mL/min/1.7 3m2 06/18/2021 6:[address] [facility] eGFR by MDRD >60 >60 mL/min/1.7 3m2 06/18/2021 6:[address] [facility] Blood BLOOD SPECIMEN / Unknown Lab Venipuncture / Unknown 06/18/2021 6:00 AM ALIGNMENT MECHANIC 06/18/2021 6:21 AM [facility] us Radha Diop DO LAB - CHEMISTRY ORDERABLES Fin al Result [facility] [address] [place] [address] from Last 3 Months or Most Recently Relevant to Health Maintenance Insurance #[address] [place] [id number] MEDICARE [facility] MANAGED MEDICARE ADV [address] [place] [address] [address] [place] [address] Advance Directives * Full Code (Latest Code Status on File) Date Activated Date Inactivated Comments 06/01/2021 5:21 PM 06/18/2021 3:21 PM * Full Code Date Activated Date Inactivated Comments 05/27/2021 3:09 PM 06/01/2021 5:01 PM Care Teams Cadet Deck Relationship Specialty Start Date End Date Catrachito Yanez MD [address] [place] [address] [phone] PCP - General Internal Medicine 02/11/25
--- OUTSIDE RECORDS SUMMARY | 2025-03-25 13:56 | XMS_ITS | Clinical Summary ---
Author Organization [facility] Address [facility] [place] [address] Care Team Providers Care Rating Officer Name Role Phone IshanHarley DPM Primary Care Provider Social History Tobacco Use Types Packs/Day Years Used Date Smoking Tobacco: Never Assessed Sex and Gender Information Value Date Recorded Sex Assigned at Not on file Legal Sex Male 4:03 PM CDT Gender Identity Not on file Sexual Orientation Not on file Plan of Treatment Upcoming Encounters Date Type Department Care Team (Late st Contact Info) Description 04/12/2025 1:00 PM CDT Office Visit [facility] - [facility] [address] [facility], [address] [place] [phone] Lynne Scott NP [address] [facility] [address] [place] [id number] Health Maintenance Due Date Last Done Comments Colorectal Cancer Screening Colonoscopy (10 Years) 1956 Hepatitis C 1974 DTaP, Tdap and Td Vaccines ( 1 - Tdap) 1975 Pneumococcal Vaccine: 50+ Ye ars (1 of 1 - PCV) 2006 Zoster Vaccines (1 of 2) 2006 Annual Medicare Wellness Visit 2021 COVID-19 Vaccine (1 - 2023-2 5 season) 2025 RSV Immunization or 60+ Years (1 - 1-dose 75+ series) 2031 Meningococcal B Vaccine Aged Out No l onger eligible based on patient's age to complete this topic Meningococcal Vaccine Aged Out No sultana ellie eligible based on patient's age to complete this topic RSV Immunizations Under 20 Months Aged Out No longer eligible based on patient's age to complete this topic Insurance MED [facility] MED[employer] [employer] Care Teams Rating Officer Relationship Specialty Start Date End Date Harley Olmstead DPM [address] [phone] PCP - General Maint Mechanic - Foot & Ankle Surgery 02/12/25
--- OUTSIDE RECORDS SUMMARY | 2025-03-25 13:56 | XMS_ITS | Clinical Summary ---
Author Organization [facility] Address [address] [place] [address] Care Team Providers Care Cotton Agent Name Role Phone Nghia Ag MD Primary Care Provider [phone] Allergies Active Allergy Reactions Criticality Noted Date [...] Comments Blood Pressure 121/75 06/18/2021 1:44 PM INSERT CUTTER Pulse 96 06/18/2021 8:09 AM INSERT CUTTER Temperature 36.8 C (98.3 F) 06/18/2021 8:09 AM INSERT CUTTER Respiratory Rate 18 06/18/2021 8:09 AM INSERT CUTTER Oxygen Saturation 94% 06/18/2021 8:09 AM INSERT CUTTER Inhaled Oxygen Concentration - - Weight 101.2 kg (223 lb) 06/13/2021 8:37 PM INSERT CUTTER Height 175.3 cm (5' 9) 06/01/2021 10:08 PM INSERT CUTTER Body Mass Index 32.93 06/01/2021 10:08 PM INSERT CUTTER Plan of Treatment Health Maintenance Due Date Last Done Comments CT Colonography 1956 Colonoscopy 1956 Colorectal Cancer Screening 1956 FIT-DNA (Cologuard) 1956 FIT 1956 FOBT 1956 Hemoglobin A1C 1956 Sigmoidoscopy 1956 Annual Visit Topic 1957 Ophthalmology Exam 1966 Urine Microalbumin 1966 Hepatitis C Screening 1974 DTaP/Tdap/Td Vaccines (1 - Tdap) 1975 Pneumococcal Vaccine: 65+ Ye ars (1 of 2 - PCV) 2006 PSA Test 2011 HIB Vaccines Aged Out No longer eligi ble based on patient's age to complete this topic HPV Vaccines Aged Out No longer eligi ble based on patient's age to complete this topic Hepatitis A Vaccines Aged Out No long er eligible based on patient's age to complete this topic Hepatitis B Vaccines Aged Out No long er eligible based on patient's age to complete this topic IPV Vaccines Aged Out No longer eligi ble based on patient's age to complete this topic Meningococcal Vaccine Aged Out No sultana ellie eligible based on patient's age to complete this topic Advance Directives * Full Resuscitation (Latest Code Status on File) Date Activated Date Inactivated Comments 06/01/2021 6:34 PM 06/18/2021 5:31 PM Care Teams Cotton Agent Relationship Specialty Start Date End Date Nghia Ag MD [address] [place], [place] [phone] PCP - General 06/01/21
[2025-03-25 14:08] LABS: Iron 82 ug/dL (49-181)
[2025-03-25 14:18] LABS: Percent Iron Saturation 23 % (20-50)
[2025-03-25 14:44] LABS: Ferritin 57.90 ng/mL (11.1-264)
== END 2025-03-25 13:34 | disposition home or self-care (01) ==
PROVIDERS: PCP Internal Medicine Infectious Disease; Visit Provider Nurse Practitioner Family
DX: D64.9 Anemia, unspecified (principal)
CPT/HCPCS: 36415; 82728; 83540; 83550